=== PATIENT | male | born 1940 | race Caucasian/White ===

== ENCOUNTER → 2021-01-12 08:10 | Outpatient (BNVA) | payer SELFPAY | PROVIDERS: PCP Internal Medicine; Referring Provider Internal Medicine; Visit Provider Internal Medicine Gastroenterology ==

== ENCOUNTER → 2021-05-19 07:18 | Day surgery (SDC) | payer MEDICARE, SELFPAY ==
[2021-02-10 13:41] VITALS: BMI 33.0
[2021-05-17 10:10] VITALS: BMI 33.0
[2021-05-19 07:44] VITALS: BP 145/78; PULSE 83; RESP 18; TEMP 36.7; O2SAT 96
[2021-05-19 07:54] LABS: Glucose, Whole Blood 116 mg/dL (60-115)
--- NOTE | 2021-05-19 07:57 | PC.NURSE ---
Pt arrived to [facility] for colonoscopy and EGD today. Upon arrival pt c/o SOB, Chest pressure and feeling hot . Pt has history of Aflutter on Aspirin 81mg. Pt noted to be afib on l tacker with HR 70-80's. Dr. Delatorre and Dr Ritter notified. Dr Delatorre at bedside speaking to patient. Pt saw cardiology at [facility] recently which recommended Stress test work up. Per Dr. Delatorre patient should have stress test prior to procedure. Pt given decision to go to ER for symptoms but refused at this time. informed to call 911 and go to ER if symptoms persist or become worse. pt verbally acknowledged. Procedure cancelled at this time.
== END ==
PROVIDERS: PCP Internal Medicine; Visit Provider Internal Medicine Gastroenterology
DX: K62.5 Hemorrhage of anus and rectum (principal); K21.9 Gastro-esophageal reflux disease without esophagitis; Z53.29 Procedure and treatment not carried out because of patient's decision for other reasons; E11.9 Type 2 diabetes mellitus without complications; I10 Essential (primary) hypertension
CPT/HCPCS: 82947

== ENCOUNTER → 2021-07-18 13:08 | Outpatient (BNVA) | payer MEDICARE, SELFPAY | PROVIDERS: PCP Internal Medicine; Visit Provider Internal Medicine Gastroenterology | DX: R13.10 Dysphagia, unspecified (principal) | CPT/HCPCS: 99212 ==

== ENCOUNTER 2021-09-07 12:15 | Day surgery (SDC) | payer MEDICARE, OTHER, SELFPAY ==
--- NOTE | 2021-09-06 10:38 | P.CONAN_ITS ---
Documented by User: Yaneth Ace NP 09/06/21 11:49 HPI - Anesthesia Eval Consult details Narrative: 81yo M for Upper Endoscopy and Colonoscopy Previously cx'd DOS d/t SOB, chest pressure. Was scheduled for stress test 05/2021. Anesth recommend f/u with stress testing prior to endos. Cardiac cleared at low to moderate aflutter, no anticoag d/t GIB PMFSH Active Problems Active Problems: All Active Problems (Updated 05/17/21 @ 10:13 by Lolita Reyes RN) Screening for colon cancer (Acute) Tubular adenoma of colon (Acute) GERD with esophagitis (Acute) Rectal bleeding (Acute) Past Medical History Medical History Anemia Asthma COVID-19 vaccine series completed Diabetes Elevated cholesterol GERD with esophagitis History of cardioversion HTN (hypertension) Hx of atrial flutter Low back pain Rectal bleeding Tubular adenoma of colon Family History Family History Mother Heart attack Surgical History Surgical History (Updated 07/18/21 @ 13:26 by MIAKEL Brown) H/O colonoscopy History of esophagogastroduodenoscopy (EGD) Hx of appendectomy Hx of cardiac catheterization Hx of eye surgery Hx of resection of small bowel Social History Social History Household Members: None Patient Tobacco Use Status: Never used Tobacco Second Hand Smoke Exposure: No Use of substances other than those prescribed or required for medical reasons: No Are you DNR?: No Advance Directives: No Advance Directives Information Provided: Yes Advance Directives on File: No Meds Allergies Allergy/AdvReac Type Severity Reaction Status Date / Time No Known Allergies Allergy Verified 07/18/21 13:20 Home Medications Medication Instructions Recorded Confirmed Last Taken Type amlodipine 5 mg tablet 5 mg PO DAILY 01/12/21 02/10/21 05/19/21 History atorvastatin 40 mg tablet 40 mg PO DAILY 01/12/21 02/10/21 Unknown History docusate sodium 100 mg capsule 100 mg PO BID 01/12/21 02/10/21 Unknown History ferrous sulfate 324 mg (65 mg 324 mg PO DAILY 01/12/21 02/10/21 Unknown History iron) tablet,delayed release furosemide 20 mg tablet 20 mg PO DAILY 01/12/21 02/10/21 Unknown History lisinopril 20 mg tablet 20 mg PO BID 01/12/21 02/10/21 Unknown History omeprazole 20 mg capsule,delayed 20 mg PO BID 01/12/21 02/10/21 05/19/21 History release albuterol sulfate 90 mcg/actuation 2 puff INHALATION Q4-6H PRN 05/13/21 05/13/21 Unknown History aerosol inhaler (ProAir HFA) aspirin 81 mg tablet,delayed 81 mg PO DAILY 05/13/21 05/13/21 05/19/21 History release Exam Exam Date and Time: September 06, 2021 1038 Narrative Narrative: ECHO 03/2021 Nml LV size, wall thickness and systolic function LVEF 60-65% Nml regional wall motion Indeterminate LV diastolic function RV not well visualized but probably nml systolic function. PASP could not be obtained LA is normal in size RA is probably normal in size No hemodynamically significant valve disease No change from 08/2020 Pharm Stress 05/2021 Normal Regadenoson stress test with nuclear imaging. No diagnostic EKG changes for ischemia. Baseline EKG: SR with PACs with aberrant conduction; LAD; Inc. RBBB Nuc imaging revealed no areas of ischemia or infarct after attenuation co rrection was applied. Nml LV function and thickening with LVEF of 73% Assessment and Plan Assessment Anesthesia Assessment: Chart Reviewed Documented by User: Pebbles Dumont MD 09/07/21 13:45 [facility] Past Medical History Medical History Anemia Asthma COVID-19 vaccine series completed Diabetes Elevated cholesterol GERD with esophagitis History of cardioversion HTN (hypertension) Hx of atrial flutter Low back pain Rectal bleeding Tubular adenoma of colon Family History Family History Mother Heart attack Family history of problems with anesthesia: No Surgical History Surgical History (Updated 07/18/21 @ 13:26 by MIKAEL Brown) H/O colonoscopy History of esophagogastroduodenoscopy (EGD) Hx of appendectomy Hx of cardiac catheterization Hx of eye surgery Hx of resection of small bowel History of Problems with Anesthesia: No Social History Social History Household Members: None Patient Tobacco Use Status: Never used Tobacco Second Hand Smoke Exposure: No Use of substances other than those prescribed or required for medical reasons: No Are you DNR?: No Advance Directives: No Advance Directives Information Provided: Yes Advance Directives on File: No Meds Allergies Allergy/AdvReac Type Severity Reaction Status Date / Time No Known Allergies Allergy Verified 07/18/21 13:20 Home Medications Medication Instructions Recorded Confirmed Last Taken Type amlodipine 5 mg tablet 5 mg PO DAILY 01/12/21 02/10/21 05/19/21 History atorvastatin 40 mg tablet 40 mg PO DAILY 01/12/21 02/10/21 Unknown History docusate sodium 100 mg capsule 100 mg PO BID 01/12/21 02/10/21 Unknown History ferrous sulfate 324 mg (65 mg 324 mg PO DAILY 01/12/21 02/10/21 Unknown History iron) tablet,delayed release furosemide 20 mg tablet 20 mg PO DAILY 01/12/21 02/10/21 Unknown History lisinopril 20 mg tablet 20 mg PO BID 01/12/21 02/10/21 Unknown History omeprazole 20 mg capsule,delayed 20 mg PO BID 01/12/21 02/10/21 05/19/21 History release albuterol sulfate 90 mcg/actuation 2 puff INHALATION Q4-6H PRN 05/13/21 05/13/21 Unknown History aerosol inhaler (ProAir HFA) aspirin 81 mg tablet,delayed 81 mg PO DAILY 05/13/21 05/13/21 05/19/21 History release Exam Airway Mallampati Class: II TM Dist: >3cm Neck ROM: Full Denture: Upper and Lower Heart: irreg Lungs: cta Assessment and Plan Assessment Anesthesia Assessment: Anesthesia Plan Discussed and Chart Reviewed Final Anesthetic Review Family History of Problems with Anesthesia: No History of Problems with Anesthesia: No NPO: Yes ASA Class: III Final Preanesthetic Review: No Changes in Pt Med Stat, Meds/Allgs Chart Reviewed and Consent Obtained/Reviewed Patient Risk: Intermediate Procedure Risk: Intermediate Anesthetic Plan Anesthetic Plan: MAC: Disposition: Standard PACU
[2021-09-07 13:20] VITALS: BP 125/71; PULSE 79; RESP 18; TEMP 36.7; O2SAT 98; BMI 33.0
--- NOTE | 2021-09-07 13:23 | MHC.SHP ---
Pre-Procedural Eval Section A Date of Service: 09/07/21 Section B Chief Complaint: Rectal Bleeding,Dysphagia Relevant Family History (Specify if Yes): No Relevant Social History: None Present Medications: see Short Stay Collaborative assessment Medical History: Significant History (Anemia Asthma COVID-19 vaccine series completed Diabetes Elevated cholesterol GERD with esophagitis History of cardioversion HTN (hypertension) Hx of atrial flutter Low back pain Rectal bleeding Tubular adenoma of colon) History of Previous Operations: Relevant previous surgery/procedure and date(s) (H/O colonoscopy History of esophagogastroduodenoscopy (EGD) Hx of appendectomy Hx of cardiac catheterization Hx of eye surgery Hx of resection of small bowel) Allergies: Allergies Allergy/AdvReac Type Severity Reaction Status Date / Time No Known Allergies Allergy Verified 07/18/21 13:20 Review of Systems Sugical H&P ROS: Negative: Constitution, Cardiovascular, Respiratory, Neurological, Psychiatric, Hem-Onc, Allergic/Immunologic, Gastrointestinal, Genitourinary, Musculoskeletal, Integumentary, Endocrine and Eyes/Ears/Nose/Throat Exam Surgical H&P Exam: Normal: HEENT, Normal: Heart, Normal: Lungs, Normal: Extremities, Normal: Abdomen, Normal: Skin and Normal: Neurological Plan Diagnosis/Plan: Unchanged I have reviewed the history and physical and performed a pertinent physical examination on my patient. No changes have occurred unless specified.
[2021-09-07] MEDS: Lactated Ringers 1,000 ML 50 ML IVCONT (13:44)
[2021-09-07 13:45] LABS: Glucose, Whole Blood 79 mg/dL (60-115)
--- NOTE | 2021-09-07 14:22 | PM.OP ---
Brief Operative Note Date of Service: 09/07/21 Pre-op diagnosis: anemia, rectal bleeding, dysphagia Post-op diagnosis: same Procedure: see op note Surgeon: Jeffy Ritter MD Anesthesia: MAC Was an Wire Spring Relay Adjuster used for this Procedure?: No Estimated blood loss (mL): 0 Condition: stable Disposition: PACU
--- NOTE | 2021-09-07 14:23 | W.PM.OPN ---
Operative Note Operative Note Date of Service: 09/07/21 Narrative: Operative Information Procedure Description: EGD, Colonoscopy FLEXIBLE TRANSORAL UPPER GASTROINTESTINAL ENDOSCOPY AND COLONOSCOPY PROCEDURE NOTE UPPER ENDOSCOPY Consent: Indications for the procedure and potential complications of bleeding, perforation, reaction to medications and missed diagnosis were discussed with the patient and informed consent was obtained. Instrument: Olympus GIF H 190 J mid size upper endoscope Monitoring: Vital signs and clinical assessment, continuous EKG monitoring, Pulse oximetry, Carbon Dioxide monitoring and blood pressure monitoring were done throughout the procedure. Procedure: The patient was placed in the left lateral decubitis position and pre-procedure medications were administered and a bite block was placed. The endoscope was inserted into the mouth and advanced under direct vision to the third part of duodenum. A careful inspection was made as the upper endoscope was withdrawn including a retroflexed examination of the proximal stomach; Findings and interventions are described below. Findings: Larynx:normal Esophagus: GE junction at 38 cm, diaphragm hiatus at 42 cm, consistent with 4 cm sliding hiatal hernia. 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 bx were taken as well as random esophagus bx. Balloon dilation doen at LES to 20 mm and UES to 19 mm no tears seen. Stomach: Areas of streaky erythematous mucosa in body of stomach and erythematous spots in the fundus. Biopsies were obtained. Grade 2 flap valve on retroflexed examination of the cardia. Duodenum: Normal bulb and descending duodenum, bx taken Intervention: Biopsies as noted above, balloon dilation COLONOSCOPY Instrument: Olympus variable stiffness pediatric scope 190L Colonoscopy Monitoring: Vital signs and clinical assessment, continuous EKG monitoring, Pulse oximetry, Carbon Dioxide monitoring and blood pressure monitoring were done throughout the procedure. Colon withdrawal time was 18 minutes. Procedure: The patient was placed in the left lateral decubitis position and pre-procedure medications were administered. After a digital rectal examination of the ano-rectum, the video colonoscope was inserted into the rectum and advanced through the colon to the cecum/TI. The colonoscope was slowly withdrawn in a retrograde panoramic fashion and the colon mucosa was carefully examined including a retroflexed view of the rectum. Findings and interventions are described below. Procedure Difficulty: easy Findings: scattered diverticulosis in right and left colon Terminal Ileum-normal Cecum: x1 sessile polyp 8 mm removed with cold snare and x2 sessile polyps 6-7 mm removed with forceps. retroflexion on right was normal Ascending Colon: normal Transverse Colon -normal Descending Colon: 7-9 mm sessile polyp removed with forceps Sigmoid Colon: normal Rectum: Retroflexion with moderate sized internal hemorrhoids with red cabrales and mild inflammation, grade II Anorectum - internal hemorrhoids seen at anal verge Colon preparation: [place] Bowel Preparation Scale Right colon; 2 Transverse colon: 2 Left colon; 2 (0 = Unprepared colon segment with mucosa not seen due to solid stool that cannot be cleared. 1 = Portion of mucosa of the colon segment seen, but other areas of the colon segment not well seen due to staining, residual stool and/or opaque liquid. 2 = Minor amount of residual staining, small fragments of stool and/or opaque liquid, but mucosa of colon segment seen well. 3 = Entire mucosa of colon segment seen well with no residual staining, small fragments of stool or opaque liquid) Impression and Post Procedure Diagnosis: Endoscopy Findings: hiatal hernia barretts esophagus gastritis/gastropathy Colonoscopy Findings: polyps internal hemorrhoids diverticular disease bleeding is from internal hemorrhoids Plan: Await Pathology results Repeat Colonoscopy in 3-5 years if health allows or earlier if clinically indicated High fiber diet leaflet avoid straining at stool, epsom salts and sitz bath, anusol supps or cream might investigate for portal htn given findings on EGD, will await bx first Above findings were reviewed with the patient and relevant handouts were provided if indicated.
[2021-09-07 14:58] VITALS: BP 116/57; PULSE 64; RESP 18; TEMP 36.1; O2SAT 98
[2021-09-07 15:13] VITALS: BP 115/54; PULSE 71; RESP 18; TEMP 36.1; O2SAT 99
== END 2021-09-07 16:19 | disposition home or self-care (01) ==
PROVIDERS: PCP Internal Medicine; Visit Provider Internal Medicine Gastroenterology
PROC: (CPT 45385; principal; 2021-09-07 14:50)
DX: K62.5 Hemorrhage of anus and rectum (principal); Z86.010 Personal history of colon polyps; D12.0 Benign neoplasm of cecum; D12.4 Benign neoplasm of descending colon; K57.30 Diverticulosis of large intestine without perforation or abscess without bleeding; K64.1 Second degree hemorrhoids; R13.10 Dysphagia, unspecified; Z85.068 Personal history of other malignant neoplasm of small intestine; Z90.49 Acquired absence of other specified parts of digestive tract; Z92.21 Personal history of antineoplastic chemotherapy; K29.50 Unspecified chronic gastritis without bleeding; K22.70 Barrett's esophagus without dysplasia; K21.00 Gastro-esophageal reflux disease with esophagitis, without bleeding; K44.9 Diaphragmatic hernia without obstruction or gangrene; I10 Essential (primary) hypertension; J45.909 Unspecified asthma, uncomplicated; D64.9 Anemia, unspecified; E11.9 Type 2 diabetes mellitus without complications; Z79.82 Long term (current) use of aspirin; Z79.899 Other long term (current) drug therapy
CPT/HCPCS: 45385; 45380; 43249; 43239; 82947; 88305; 88342; C1726; J2370

== ENCOUNTER → 2021-09-26 14:24 | Outpatient (BNVA) | payer MEDICARE, SELFPAY | PROVIDERS: PCP Internal Medicine; Visit Provider Internal Medicine Gastroenterology | DX: K62.5 Hemorrhage of anus and rectum (principal); K21.00 Gastro-esophageal reflux disease with esophagitis, without bleeding | CPT/HCPCS: 99212 ==

== ENCOUNTER → 2021-10-26 14:18 | Outpatient (BNVA) | payer MEDICARE, SELFPAY | PROVIDERS: PCP Internal Medicine; Referring Provider Internal Medicine Gastroenterology; Visit Provider Surgery | DX: K64.9 Unspecified hemorrhoids (principal) | CPT/HCPCS: 46600; 99202 ==

== ENCOUNTER → 2022-01-23 10:10 | Outpatient (BNVA) | payer MEDICARE, MEDICAID, SELFPAY | PROVIDERS: PCP Internal Medicine; Visit Provider Internal Medicine Gastroenterology | DX: K64.9 Unspecified hemorrhoids (principal); K21.9 Gastro-esophageal reflux disease without esophagitis; R13.10 Dysphagia, unspecified; K44.9 Diaphragmatic hernia without obstruction or gangrene | CPT/HCPCS: 99212 ==

== ENCOUNTER 2022-04-13 11:28 | Outpatient (REF) | payer MEDICARE, MEDICAID, SELFPAY ==
--- NOTE | ~2022-04-13 | XR_ITS ---
EXAMINATION: XR ABDOMEN WITH DECUBITUS VIEWS CLINICAL INDICATION: Diarrhea COMPARISON: None TECHNIQUE: Supine and upright views of the abdomen. FINDINGS: The bowel gas pattern is normal with no evidence of ileus or obstruction. No free intraperitoneal air is seen. Surgical clips present in the right mid abdomen. No unusual soft tissue calcifications are noted. Some sclerotic changes are present in the SI joints. The bones are otherwise unremarkable. XR/XR abdomen w decubitus IMPRESSION: No evidence of bowel obstruction.
[2022-04-13 12:43] LABS: MANUAL DIFF FLAG NO
[2022-04-13 13:21] LABS: Basophils Percent Auto 0.3 % (0-2); Eosinophils Absolute Auto 0.1 X10*3/uL (0.0-0.4); Eosinophils Percent Auto 0.7 % (0-4); Hematocrit 42.6 % (42.0-52.0); Hemoglobin 13.8 g/dl (14.0-18.0); Imm Gran Abs Auto 0.03 X10*3/uL (0.00-0.03); Imm Gran Pct Auto 0.3 % (0.0-0.4); Lymphocytes Percent Auto 11.6 % (20-40); Mean Corpuscular HGB Conc 32.4 g/dl (31.0-36.0); Mean Corpuscular Hemoglobin 29.2 pg (27.0-33.0); Mean Corpuscular Volume 90.1 fL (80.0-98.0); Mean Platelet Volume 11.4 fL (9.4-12.4); Monocytes Absolute Auto 0.7 X10*3/uL (0.1-1.2); Monocytes Percent Auto 7.9 % (2-11); Neutrophils Percent Auto 79.2 % (45-73); Platelet Count 227 X10*3/uL (160-400); Red Blood Count 4.73 X10*6/uL (4.60-5.80); Red Cell Distribution Width 13.1 % (11.0-16.0); White Blood Count 8.9 X10*3/uL (4.8-10.8)
[2022-04-13 13:44] LABS: Alanine Aminotransferase 16 U/L (0-40); Albumin Level 4.1 g/dL (3.5-5.0); Alkaline Phosphatase 69 U/L (39-117); Anion Gap 15 (12-20); Aspartate Amino Transferase 22 U/L (5-37); Bilirubin Total 1.2 mg/dL (0.0-1.0); Blood Urea Nitrogen 9 mg/dL (9-16); C Reactive Protein 0.18 mg/dL (< or = 0.50); Calcium 9.3 mg/dL (8.4-10.2); Carbon Dioxide 30 mmol/L (22-29); Chloride 100 mmol/L (96-108); Estimated Glomerular Filt Rate > 60; Glucose Random 108 mg/dL (60-115); Potassium 3.9 mmol/L (3.3-5.1); Sodium 141 mmol/L (135-145); Total Protein 6.8 g/dL (6.5-8.0)
[2022-04-13 14:05] LABS: TSH reflex Free T4 0.67 uIU/mL (0.32-4.0)
[2022-04-18 14:56] LABS: Transglutaminase Ab IgG <1.0 U/mL; Transglutaminase IgA <1.0 U/mL
== END 2022-04-13 11:29 | disposition home or self-care (01) ==
LOC: HO.XRAY 11:28
PROVIDERS: Visit Provider Nurse Practitioner
DX: R19.7 Diarrhea, unspecified (principal)
CPT/HCPCS: 36415; 74021; 80053; 84443; 85025; 86140; 86364; 99212

== ENCOUNTER 2022-04-14 15:31 | Emergency (ER) | payer MEDICARE, MEDICAID, SELFPAY ==
--- NOTE | ~2022-04-14 | CT_ITS ---
EXAMINATION: CT ABDOMEN AND PELVIS WITH CONTRAST CLINICAL INFORMATION: Abdominal pain and diarrhea COMPARISON: None TECHNIQUE: Multidetector volumetric images were obtained from the superior aspect of the liver through the pubic symphysis following administration 85 mL of Omnipaque 350 intravenous contrast. Sagittal and coronal reformatted images were obtained on the technologist's workstation. Oral contrast: No This CT examination was performed using dose optimization techniques as appropriate, variously including the following: *Automated exposure control *Adjustment of mA and/or kV according to patient size (this includes techniques or standardized protocols for targeted exams where dose is matched to indication/reason for exam; i.e. extremities or head) *Use of iterative reconstruction technique DLP: 549 mGy-cm FINDINGS: LUNG BASES: Multiple scattered pulmonary nodules and evidence of an underlying lung disease, possibly emphysema or an interstitial lung disease with areas of cystic change predominantly involving the anterior basilar segment of the right lower lobe. The largest pulmonary nodule measures 0.7 cm. Extensive coronary artery atherosclerotic disease. Right hemidiaphragm elevation. LIVER, GALLBLADDER, AND BILIARY TREE: There is a 2.3 x 2.2 cm hypodense lesion within the liver hepatic segment 4A measuring internal attenuation of 43 Hounsfield units. No other focal liver lesions are identified. No significant intrahepatic biliary dilatation. The liver is normal in size. The gallbladder is unremarkable with no evidence of radiopaque gallstones, gallbladder wall thickening, or obvious pericholecystic inflammatory changes. PANCREAS: Unremarkable. SPLEEN: Unremarkable. ADRENAL GLANDS: Unremarkable. KIDNEYS AND URETERS: The kidneys are normal in size, shape, and attenuation. No hydronephrosis, hydroureter, or calculi seen. No perinephric stranding. Left renal cyst measures 6.3 cm in maximal dimension with a thin peripheral rim calcification. Few scattered tiny well-defined renal cortical hypodensities, a nonspecific finding but statistically most likely representing renal cysts. BLADDER: Broad bladder wall thickening predominantly along the anterior and left lateral aspect without focal lesion. GASTROINTESTINAL TRACT: There is loss of haustrations involving the rectosigmoid colon. There is a somewhat focal area of wall thickening involving the sigmoid colon measuring 1 cm (series 3 image 44). The remainder of the colon is unremarkable. The appendix is not seen, however there are no inflammatory changes in the right lower quadrant to suggest acute appendicitis. No evidence of bowel structure. Prior small bowel resection right lower quadrant. ABDOMINAL WALL: No significant hernia is appreciated. LYMPH NODES: No lymphadenopathy within the abdomen or pelvis by CT criteria. VASCULAR: Atherosclerosis abdominal aorta without evidence of aneurysm. The IVC is singular and right-sided. PELVIC VISCERA: Unremarkable. OSSEOUS STRUCTURES: No acute or suspicious osseous abnormality. CT/CT abdomen pelvis w con IMPRESSION: 1. Loss of haustrations involving the rectosigmoid colon suggestive of an underlying inflammatory bowel disease such as ulcerative colitis. There is a focal area of wall thickening involving the proximal sigmoid colon which could represent malignancy. Correlation with the patient's history and consideration for colonoscopy is recommended with consultative surfaces of gastroenterology. 2. Indeterminate hypodense lesion within the liver. I have no prior studies available for comparison to comment upon whether this is a new or old finding. Consider initial follow-up with ultrasound if the clinical history is unrevealing. 3. Multiple scattered pulmonary nodules of the partially imaged lung bases. It cannot be determined based on this singular scan alone whether these represent metastatic lesions, however this is considered a possibility and clinical correlation along with acquisition of prior studies if available is recommended. If none available, dedicated chest CT imaging on an nonemergent basis is recommended if the patient's clinical history warrants. Fleischner guidelines were followed.
[2022-04-14 15:34] VITALS: BP 109/53; PULSE 73; RESP 19; TEMP 36.6; O2SAT 98; BMI 28.7
--- NOTE | 2022-04-14 15:37 | ECG_ITS ---
Test Reason : BLEED Blood Pressure : / mmHG Vent. Rate : 073 BPM Atrial Rate : 073 BPM P-R Int : 166 ms QRS Dur : 102 ms QT Int : 400 ms P-R-T Axes : 058 -47 039 degrees QTc Int : 440 ms Normal sinus rhythm Left axis deviation Abnormal ECG No previous ECGs available Referred By: Generic ED Physician Electronically Signed By:DARON FERNANDEZ MD
[2022-04-14 16:09] LABS: MANUAL DIFF FLAG NO
[2022-04-14 16:11] LABS: Basophils Percent Auto 0.1 % (0-2); Eosinophils Absolute Auto 0.2 X10*3/uL (0.0-0.4); Eosinophils Percent Auto 1.6 % (0-4); Hematocrit 39.7 % (42.0-52.0); Hemoglobin 12.5 g/dl (14.0-18.0); Imm Gran Abs Auto 0.04 X10*3/uL (0.00-0.03); Imm Gran Pct Auto 0.4 % (0.0-0.4); Lymphocytes Absolute Auto 0.9 X10*3/uL (1.2-4.9); Lymphocytes Percent Auto 9.1 % (20-40); Mean Corpuscular HGB Conc 31.5 g/dl (31.0-36.0); Mean Corpuscular Hemoglobin 28.3 pg (27.0-33.0); Mean Platelet Volume 11.1 fL (9.4-12.4); Monocytes Absolute Auto 0.9 X10*3/uL (0.1-1.2); Monocytes Percent Auto 9.3 % (2-11); Neutrophils Absolute Auto 7.5 x10*3/uL (2.0-8.3); Neutrophils Percent Auto 79.5 % (45-73); Platelet Count 200 X10*3/uL (160-400); Red Blood Count 4.41 X10*6/uL (4.60-5.80); Red Cell Distribution Width 13.2 % (11.0-16.0); White Blood Count 9.4 X10*3/uL (4.8-10.8)
[2022-04-14 16:21] LABS: INTERNATIONAL NORM RATIO 1.2 (0.9-1.1); Prothrombin Time 13.1 SEC (9.9-13.0)
[2022-04-14 16:29] LABS: COVID-19 Test Negative (Negative)
[2022-04-14 16:34] LABS: Anion Gap 11 (12-20); Blood Urea Nitrogen 15 mg/dL (9-16); Calcium 8.8 mg/dL (8.4-10.2); Carbon Dioxide 30 mmol/L (22-29); Chloride 102 mmol/L (96-108); Creatinine Clr Calc Pharmacy 58.4; Estimated Glomerular Filt Rate > 60; Glucose Random 178 mg/dL (60-115); Potassium 3.3 mmol/L (3.3-5.1); Sodium 140 mmol/L (135-145)
[2022-04-14 16:39] LABS: Troponin-I High Sensitivity 9.1 ng/L (<3.5-35.0)
--- NOTE | 2022-04-14 17:17 | ED.GIBLEED ---
HPI - GI Bleed General Chief complaint: GI Bleed Stated complaint: weakness, blood in stool Time Seen by Provider: 04/14/22 17:05 Source: patient and old records reviewed Mode of arrival: ambulatory Limitations: no limitations History of Present Illness HPI Narrative: 81 yo male with hx of asthma, HTN, aflutter, HLD, DM, bowel resection, GERD/esophagitis, internal hemorrhoids, last colonscopy Aug 2021 showing diverticulosis of R/L colon, internal hemorrhoids with mild inflammation - noted c/o bleeding at the time of colonoscopy was from hemorrhoids also had EGD - barretts esophagitis and gastritis was seen in GI clinic yesterday for diarrhea - labs wnl for CBC, comprehensive. He was seen at [facility] ED about 7 days ago with same complaint sent home with bland diet. Comes today with c/o of loose stools upwards of 3+ a day the most he has had in a day sounds like 10+ since 04/07. They are now black in nature. He denies travel, sick contact, antibiotic use. He notes this has not happened to him in the past. MD complaint: melena Onset (ago): week(s) (2) Pain Consistency: intermittent Severity: mild Relieving factors: none Exacerbating factors: eating Context: hemorrhoids Associated symptoms: loss of appetite, malaise and weakness Treatments Prior to Arrival: none Related Data Home Medications Medication Instructions Recorded Confirmed amlodipine 5 mg tablet 5 mg PO DAILY 01/12/21 02/10/21 atorvastatin 40 mg tablet 40 mg PO DAILY 01/12/21 02/10/21 docusate sodium 100 mg capsule 100 mg PO BID 01/12/21 02/10/21 ferrous sulfate 324 mg (65 mg 324 mg PO DAILY 01/12/21 02/10/21 iron) tablet,delayed release furosemide 20 mg tablet 20 mg PO DAILY 01/12/21 02/10/21 lisinopril 20 mg tablet 20 mg PO BID 01/12/21 02/10/21 albuterol sulfate 90 mcg/actuation 2 puff inhalation Q4-6H PRN 05/13/21 05/13/21 aerosol inhaler (ProAir HFA) Shortness Of Breath Or Wheezing aspirin 81 mg tablet,delayed 81 mg PO DAILY 05/13/21 05/13/21 release Previous Rx's Medication Instructions Recorded bisacodyl 5 mg tablet,delayed 10 mg PO ONCE Bowel Preparation 1 02/15/21 release (Dulcolax (bisacodyl)) day #2 tabs polyethylene glycol 3350 17 238 g PO DAILY colo prep 1 day 02/15/21 gram/dose oral powder (Miralax) #238 grams bisacodyl 5 mg tablet,delayed 20 mg PO ONCE 1 day #4 tabs 07/18/21 release (Dulcolax (bisacodyl)) hydrocortisone 2.5 % topical cream 1 appl WV BID-QID PRN hemorrhoids 09/14/21 with perineal applicator #30 grams (Procto-Med HC) psyllium husk 3.4 gram/5.4 gram 1 tbsp PO BID #660 grams 09/14/21 oral powder (Metamucil) pantoprazole 40 mg tablet,delayed 40 mg PO BID #60 tabs 01/23/22 release levofloxacin 500 mg tablet 500 mg PO DAILY #6 tabs 04/14/22 metronidazole 500 mg tablet 500 mg PO BID 7 days #14 tabs 04/14/22 Allergies Allergy/AdvReac Type Severity Reaction Status Date / Time No Known Allergies Allergy Verified 04/13/22 10:20 Review of Systems Review of Systems: Constitutional : No Weight loss, No Fever, No Chills ENT/Mouth : No sore throat, No Rhinorrhea Eyes: No Swelling, No Redness Cardiovascular : No Chest Pain, No SOB, NoEdema Respiratory : No Cough, No Sputum, No Wheezing Gastrointestinal : no Nausea, no Vomiting, positive Diarrhea, no abdominal Pain, No Hematochezia, pos Melena Genitourinary : No Dysuria, No Urinary Frequency, No Hematuria, No Urgency Musculoskeletal : No joint pain, No Myalgias, No Joint Swelling Skin : No Skin Lesions, No rash Neuro : pos Weakness, No Numbness, pos Dizziness, No Headache Psych : No Anxiety/Panic, No Depression Heme/Lymph: No Bruising, No Lymphadenopathy Endocrine : No Polyuria, No Polydipsia All other systems reviewed and are negative. [facility] Past Medical History Attestation statement: The following information was validated with the patient. Source: old records reviewed Medical History Anemia Asthma COVID-19 vaccine series completed Diabetes Elevated cholesterol History of cardioversion HTN (hypertension) Hx of atrial flutter Low back pain Surgical History H/O colonoscopy History of esophagogastroduodenoscopy (EGD) Hx of appendectomy Hx of cardiac catheterization Hx of eye surgery Hx of resection of small bowel Family History Family History Mother Heart attack Social History Social History Household Members: None Patient Tobacco Use Status: Never used Tobacco Second Hand Smoke Exposure: No Advance Directives: No Advance Directives Information Provided: No Physical Exam Vital Signs: Vital Signs: Last Vital Signs Temp 98.4 F 04/14/22 18:42 Pulse 74 04/14/22 18:42 Resp 16 04/14/22 18:42 BP 142/66 H 04/14/22 18:42 Pulse Ox 98 04/14/22 18:42 O2 Del Method 04/14/22 18:42 BMI result Body Mass Index 28.7 Appearance: Alert. Oriented X3. No acute distress. Eyes: Pupils equal, round and reactive to light. ENT: Pharynx normal. Neck: Normal inspection. Neck supple. CVS: Normal heart rate and rhythm. Pulses normal. Respiratory: No respiratory distress. Breath sounds normal. Abdomen: Soft and nontender. Rectal: black stool on fingertips Skin: Skin warm and dry. Normal skin color. Normal skin turgor. Extremities: No lower extremity edema. No calf ttp Neuro: Oriented X 3. No motor deficit. No sensory deficit. Course Course Course Narrative: H/H stable no drop, guiac neg guiac negative able to give GI panel lab given CT scan will place on antibiotics, just had colonoscopy but will defer to GI on Sunday will need CT scan with PCP on Sunday - VS are stable, H/H stable with 2 weeks of symptoms, guiac negative has appointment with GI on Sunday aware he has to have CT scan on chest. patient states he feels well enough to go home MDM - GI Bleed MDM Narrative Medical decision making narrative: 81 yo male with hx of asthma, HTN, aflutter, HLD, DM, bowel resection, GERD/esophagitis, internal hemorrhoids, not on DOAC here with c/o dizziness/weakness and melena now for 2 weeks no precipitating events seems that the stool has no changed to melena. At this time labs, guiac study, CT scan for mass given history, IVF, stool studies ordered. Dispo per results and findings. Lab Data Result diagrams: 04/14/22 17:40 04/14/22 15:56 Labs: Lab Results 04/14/22 04/14/22 04/14/22 Range/Units 15:56 15:56 15:56 WBC 9.4 (4.8-10.8) X10*3/uL RBC 4.41 L (4.60-5.80) X10*6/uL Hgb 12.5 L (14.0-18.0) g/dl Hct 39.7 L (42.0-52.0) % MCV 90.0 (80.0-98.0) fL MCH 28.3 (27.0-33.0) pg MCHC 31.5 (31.0-36.0) g/dl RDW 13.2 (11.0-16.0) % Plt Count 200 (160-400) X10*3/uL MPV 11.1 (9.4-12.4) fL Immature Gran % (Auto) 0.4 (0.0-0.4) % Neut % (Auto) 79.5 H (45-73) % Lymph % (Auto) 9.1 L (20-40) % [place] % (Auto) 9.3 (2-11) % Eos % (Auto) 1.6 (0-4) % Baso % (Auto) 0.1 (0-2) % Lymph # (Auto) 0.9 L (1.2-4.9) X10*3/uL [place]verse # (Auto) 0.9 (0.1-1.2) X10*3/uL Eos # (Auto) 0.2 (0.0-0.4) X10*3/uL Baso # (Auto) 0.0 (0.0-0.2) X10*3/uL Abs Immat Gran (auto) 0.04 H (0.00-0.03) X10*3/uL Absolute Neuts (auto) 7.5 (2.0-8.3) x10*3/uL Absolute Nucleated RBC 0.000 (0.0-0.012) X10*3/uL Nucleated RBC % (auto) 0.0 (0.0-0.2) /100WBC PT (9.9-13.0) SEC INR (0.9-1.1) Sodium 140 (135-145) mmol/L Potassium 3.3 (3.3-5.1) mmol/L Chloride 102 (96-108) mmol/L Carbon Dioxide 30 H (22-29) mmol/L Anion Gap 11 L (12-20) BUN 15 D (9-16) mg/dL Creatinine 0.84 (0.5-1.4) mg/dL Estim Creat Clear Calc 58.4 Estimated GFR > 60 Random Glucose 178 H D (60-115) mg/dL Calcium 8.8 (8.4-10.2) mg/dL Magnesium 1.8 (1.6-2.6) mg/dL Total Bilirubin 1.0 (0.0-1.0) mg/dL Direct Bilirubin 0.5 (0.0-0.5) mg/dL AST 22 (5-37) U/L ALT 16 (0-40) U/L Alkaline Phosphatase 60 (39-117) U/L Troponin I High Sens (<3.5-35.0) ng/L Total Protein 6.0 L (6.5-8.0) g/dL Albumin 3.7 (3.5-5.0) g/dL Lipase 53 (8-78) U/L Stool Occult Blood (NEGATIVE) COVID-19 (AUREA) Negative (Negative) COVID-19 Clin Com See Note Blood Type Antibody Screen 04/14/22 04/14/22 04/14/22 Range/Units 15:56 15:56 15:56 WBC (4.8-10.8) X10*3/uL RBC (4.60-5.80) X10*6/uL Hgb (14.0-18.0) g/dl Hct (42.0-52.0) % MCV (80.0-98.0) fL MCH (27.0-33.0) pg MCHC (31.0-36.0) g/dl RDW (11.0-16.0) % Plt Count (160-400) X10*3/uL MPV (9.4-12.4) fL Immature Gran % (Auto) (0.0-0.4) % Neut % (Auto) (45-73) % Lymph % (Auto) (20-40) % [place]verse % (Auto) (2-11) % Eos % (Auto) (0-4) % Baso % (Auto) (0-2) % Lymph # (Auto) (1.2-4.9) X10*3/uL [place] # (Auto) (0.1-1.2) X10*3/uL Eos # (Auto) (0.0-0.4) X10*3/uL Baso # (Auto) (0.0-0.2) X10*3/uL Abs Immat Gran (auto) (0.00-0.03) X10*3/uL Absolute Neuts (auto) (2.0-8.3) x10*3/uL Absolute Nucleated RBC (0.0-0.012) X10*3/uL Nucleated RBC % (auto) (0.0-0.2) /100WBC PT 13.1 H (9.9-13.0) SEC INR 1.2 H (0.9-1.1) Sodium (135-145) mmol/L Potassium (3.3-5.1) mmol/L Chloride (96-108) mmol/L Carbon Dioxide (22-29) mmol/L Anion Gap (12-20) BUN (9-16) mg/dL Creatinine (0.5-1.4) mg/dL Estim Creat Clear Calc Estimated GFR Random Glucose (60-115) mg/dL Calcium (8.4-10.2) mg/dL Magnesium (1.6-2.6) mg/dL Total Bilirubin (0.0-1.0) mg/dL Direct Bilirubin (0.0-0.5) mg/dL AST (5-37) U/L ALT (0-40) U/L Alkaline Phosphatase (39-117) U/L Troponin I High Sens 9.1 (<3.5-35.0) ng/L Total Protein (6.5-8.0) g/dL Albumin (3.5-5.0) g/dL Lipase (8-78) U/L Stool Occult Blood (NEGATIVE) COVID-19 (AUREA) (Negative) COVID-19 Clin Com Blood Type O Positive Antibody Screen NEGATIVE 04/14/22 04/14/22 Range/Units 17:40 17:40 WBC 13.2 H (4.8-10.8) X10*3/uL RBC 4.40 L (4.60-5.80) X10*6/uL Hgb 12.7 L (14.0-18.0) g/dl Hct 39.5 L (42.0-52.0) % MCV 89.8 (80.0-98.0) fL MCH 28.9 (27.0-33.0) pg MCHC 32.2 (31.0-36.0) g/dl RDW 13.2 (11.0-16.0) % Plt Count 196 (160-400) X10*3/uL MPV 11.3 (9.4-12.4) fL Immature Gran % (Auto) (0.0-0.4) % Neut % (Auto) (45-73) % Lymph % (Auto) (20-40) % [place]verse % (Auto) (2-11) % Eos % (Auto) (0-4) % Baso % (Auto) (0-2) % Lymph # (Auto) (1.2-4.9) X10*3/uL [place] # (Auto) (0.1-1.2) X10*3/uL Eos # (Auto) (0.0-0.4) X10*3/uL Baso # (Auto) (0.0-0.2) X10*3/uL Abs Immat Gran (auto) (0.00-0.03) X10*3/uL Absolute Neuts (auto) (2.0-8.3) x10*3/uL Absolute Nucleated RBC 0.000 (0.0-0.012) X10*3/uL Nucleated RBC % (auto) 0.0 (0.0-0.2) /100WBC PT (9.9-13.0) SEC INR (0.9-1.1) Sodium (135-145) mmol/L Potassium (3.3-5.1) mmol/L Chloride (96-108) mmol/L Carbon Dioxide (22-29) mmol/L Anion Gap (12-20) BUN (9-16) mg/dL Creatinine (0.5-1.4) mg/dL Estim Creat Clear Calc Estimated GFR Random Glucose (60-115) mg/dL Calcium (8.4-10.2) mg/dL Magnesium (1.6-2.6) mg/dL Total Bilirubin (0.0-1.0) mg/dL Direct Bilirubin (0.0-0.5) mg/dL AST (5-37) U/L ALT (0-40) U/L Alkaline Phosphatase (39-117) U/L Troponin I High Sens (<3.5-35.0) ng/L Total Protein (6.5-8.0) g/dL Albumin (3.5-5.0) g/dL Lipase (8-78) U/L Stool Occult Blood NEGATIVE (NEGATIVE) COVID-19 (AUREA) (Negative) COVID-19 Clin Com Blood Type Antibody Screen ECG Data Attestation: I personally reviewed and interpreted this ECG as follows: ECG interpretation date: 04/14/22 ECG interpretation time: 17:31 Interpretation: Rate: 73 Rhythm: NSR [place]: left Normal P waves. Normal JANINA. Normal QRS complex. ST T wave : normal no AYESHA qTC: normal prior studies: no acute ischemia The study has been interpreted contemporaneously by me. . Discharge Plan Discharge Clinical Impression: Colitis Patient Disposition: Home, Self-Care Instructions: Colitis (ED) Additional Instructions: return to ED for any worsening symptoms or concerns you need to get a CT scan of your chest, follow up with GI these findings are worrisome CT/CT abdomen pelvis w con IMPRESSION: ? 1. Loss of haustrations involving the rectosigmoid colon suggestive of an underlying inflammatory bowel disease such as ulcerative colitis. There is a focal area of wall thickening involving the proximal sigmoid colon which could represent malignancy. Correlation with the patient's history and consideration for colonoscopy is recommended with consultative surfaces of gastroenterology. 2. Indeterminate hypodense lesion within the liver. I have no prior studies available for comparison to comment upon whether this is a new or old finding. Consider initial follow-up with ultrasound if the clinical history is unrevealing. 3. Multiple scattered pulmonary nodules of the partially imaged lung bases. It cannot be determined based on this singular scan alone whether these represent metastatic lesions, however this is considered a possibility and clinical correlation along with acquisition of prior studies if available is recommended. If none available, dedicated chest CT imaging on an nonemergent basis is recommended if the patient's clinical history warrants. Prescriptions: New metronidazole 500 mg tablet 500 mg PO BID 7 Days Qty: 14 0RF levofloxacin 500 mg tablet 500 mg PO DAILY Qty: 6 0RF No Action polyethylene glycol 3350 [Miralax] 17 gram/dose powder 238 g PO DAILY 1 Days Qty: 238 0RF bisacodyl [Dulcolax (bisacodyl)] 5 mg tablet,delayed release (DR/EC) 10 mg PO ONCE 1 Days Qty: 2 0RF Rx Instructions: Take 2 tablets at 12:00pm the day before your procedure, bowel prep Metamucil 3.4 gram/5.4 gram powder 1 tbsp PO BID Qty: 660 2RF Rx Instructions: mix into at least 8 oz of water or juice before administering hydrocortisone [Procto-Med HC] 2.5 % cream with perineal applicator 1 appl WV BID-QID PRN (Reason: hemorrhoids) Qty: 30 0RF aspirin [Aspir-81] 81 mg Tablet,Delayed Release (Dr/Ec) 81 mg PO DAILY albuterol sulfate [ProAir HFA] 90 mcg/actuation Hfa Aerosol Inhaler 2 puff INHALATION Q4-6H PRN (Reason: Shortness Of Breath Or Wheezing) amlodipine 5 mg tablet 5 mg PO DAILY ferrous sulfate 324 mg (65 mg iron) tablet,delayed release (DR/EC) 324 mg PO DAILY lisinopril 20 mg tablet 20 mg PO BID furosemide 20 mg tablet 20 mg PO DAILY atorvastatin 40 mg tablet 40 mg PO DAILY docusate sodium 100 mg capsule 100 mg PO BID bisacodyl [Dulcolax (bisacodyl)] 5 mg tablet,delayed release (DR/EC) 20 mg PO ONCE 1 Days Qty: 4 0RF Rx Instructions: take at 6 pm day before colonoscopy pantoprazole 40 mg tablet,delayed release (DR/EC) 40 mg PO BID Qty: 60 2RF Referrals: Melissa Agustin ANP-C [Nurse Practitioner] - 04/18/22 Geneva Patel MD [Physician] - 1 week
[2022-04-14 17:46] LABS: Hematocrit 39.5 % (42.0-52.0); Hemoglobin 12.7 g/dl (14.0-18.0); Mean Corpuscular HGB Conc 32.2 g/dl (31.0-36.0); Mean Corpuscular Hemoglobin 28.9 pg (27.0-33.0); Mean Corpuscular Volume 89.8 fL (80.0-98.0); Mean Platelet Volume 11.3 fL (9.4-12.4); Platelet Count 196 X10*3/uL (160-400); Red Cell Distribution Width 13.2 % (11.0-16.0); White Blood Count 13.2 X10*3/uL (4.8-10.8)
[2022-04-14 17:56] LABS: OBS Int Ctl Valid YES; OBS1 NEGATIVE (NEGATIVE)
[2022-04-14] MEDS: iohexoL 350 MG/ML 100 ML INFUS..BTL IV (17:56)
[2022-04-14 18:03] LABS: Alanine Aminotransferase 16 U/L (0-40); Albumin Level 3.7 g/dL (3.5-5.0); Alkaline Phosphatase 60 U/L (39-117); Aspartate Amino Transferase 22 U/L (5-37); Bilirubin Direct 0.5 mg/dL (0.0-0.5); Lipase 53 U/L (8-78); Magnesium 1.8 mg/dL (1.6-2.6)
[2022-04-14] MEDS: Lactated Ringers 1,000 ML 999 ML IV (18:06)
[2022-04-14 18:42] VITALS: BP 142/66; PULSE 74; RESP 16; TEMP 36.9; O2SAT 98
[2022-04-14] MEDS: levoFLOXacin 500 MG TABLET PO (19:58)
[2022-04-14] MEDS: metroNIDAZOLE 500 MG TABLET PO (19:58)
[2022-04-14 20:00] VITALS: BP 134/70; PULSE 72; RESP 16; TEMP 37.2; O2SAT 98
[2022-04-15 09:26] LABS: Campylobacter Not Detected (Not Detect.); E. coli EAEC Not Detected (Not Detect.); E. coli EPEC Not Detected (Not Detect.); E. coli ETEC Not Detected (Not Detect.); E. coli STEC Not Detected (Not Detect.); Plesiomonas shigelloides Not Detected (Not Detect.); Salmonella Not Detected (Not Detect.); Vibrio Not Detected (Not Detect.); Vibrio Cholerae Not Detected (Not Detect.); Yersinia enterocolitica Not Detected (Not Detect.)
[2022-04-15 09:27] LABS: Adenovirus F 40/41 Not Detected (Not Detect.); Astrovirus Not Detected (Not Detect.); Cryptosporidium Not Detected (Not Detect.); Cyclospora cayetanensis Not Detected (Not Detect.); Entamoeba histolytica Not Detected (Not Detect.); Giardia lamblia Not Detected (Not Detect.); Norovirus GI/GII Not Detected (Not Detect.); Rotavirus A Not Detected (Not Detect.); Sapovirus Not Detected (Not Detect.); Shigella sp./EIEC Not Detected (Not Detect.)
== END 2022-04-14 20:13 | disposition home or self-care (01) ==
PROVIDERS: Emergency Provider Emergency Medicine
DX: K52.9 Noninfective gastroenteritis and colitis, unspecified (principal); K92.1 Melena; I10 Essential (primary) hypertension; R10.2 Pelvic and perineal pain; Z20.822 Contact with and (suspected) exposure to COVID-19; Z79.899 Other long term (current) drug therapy
CPT/HCPCS: 36415; 74177; 80048; 80076; 82272; 83690; 83735; 84484; 85025; 85027; 85610; 86850; 86900; 86901; 87507; 87635; 93005; 96360; 99283; 99284; Q9967

== ENCOUNTER 2022-04-14 15:49 | Outpatient (REF) | payer MEDICARE, MEDICAID, SELFPAY ==
[2022-04-15 04:39] LABS: CDiff Gene PCR NEGATIVE (Negative)
== END 2022-04-14 15:50 | disposition home or self-care (01) ==
LOC: HO.LNP 15:49
PROVIDERS: Visit Provider Nurse Practitioner
DX: R19.7 Diarrhea, unspecified (principal)
CPT/HCPCS: 87493

== ENCOUNTER → 2022-04-18 15:44 | Outpatient (BNVA) | payer MEDICARE, MEDICAID, SELFPAY | PROVIDERS: Visit Provider Nurse Practitioner | DX: R19.7 Diarrhea, unspecified (principal) | CPT/HCPCS: 99212 ==

== ENCOUNTER → 2022-05-12 12:22 | Outpatient (BNVA) | payer MEDICARE, MEDICAID, SELFPAY | PROVIDERS: Visit Provider Internal Medicine Gastroenterology | DX: K92.1 Melena (principal); R19.8 Other specified symptoms and signs involving the digestive system and abdomen; K76.9 Liver disease, unspecified | CPT/HCPCS: 99212 ==

== ENCOUNTER 2022-05-16 15:19 | Outpatient (REF) | payer MEDICARE, OTHER, SELFPAY ==
--- NOTE | ~2022-05-16 | CT_ITS ---
EXAMINATION: CT CHEST WITH CONTRAST CLINICAL INFORMATION: Lung nodules. History of small bowel cancer. COMPARISON: Abdominal CT from 04/14/2022. TECHNIQUE: Multidetector volumetric CT imaging of the chest was obtained after the administration of 65 mL of Omnipaque 350 intravenous contrast without immediate adverse reactions. Axial MIP volume rendering provided. Sagittal and coronal reformatted images were obtained. This CT examination was performed using dose optimization techniques as appropriate, variously including the following: *Automated exposure control *Adjustment of mA and/or kV according to patient size (this includes techniques or standardized protocols for targeted exams where dose is matched to indication/reason for exam; i.e. 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 LUNGS: The central airways are patent. Mosaic attenuation of the lungs. There are multiple nodules seen throughout the lung parenchyma. This corresponds to the appearance on previous abdominal CT. For instance there is a left lower lobe 0.6 cm nodule on series 7 image 140 which is unchanged. There is a right middle lobe 0.8 cm nodule on image 102. Left upper lobe 0.5 cm nodule on image 48. Multiple additional nodules are present throughout the lungs. No dense consolidation. No pneumothorax. MEDIASTINUM: Normal heart size. Dense coronary artery calcifications. No pericardial effusion. No mediastinal lymphadenopathy. PLEURA: There is no pleural effusion. No pleural mass or thickening. AXILLA: No lymphadenopathy. UPPER ABDOMEN: Hypoattenuating area at the periphery of the liver is unchanged. Normal adrenal glands. OSSEOUS STRUCTURES: Mild degenerative changes throughout the spine. No acute or suspicious osseous abnormality. CT/CT chest w con IMPRESSION: Numerous nodules are seen throughout both lungs. Although nonspecific, the appearance is concerning for metastatic disease in this clinical setting. There is no significant change in the visualized lower lung nodules when compared to the recent prior abdominal CT. Fleischner guidelines were followed.
[2022-05-16] MEDS: iohexoL 350 MG/ML 100 ML INFUS..BTL IV (15:53)
== END 2022-05-16 15:20 | disposition home or self-care (01) ==
LOC: HO.CT 15:19
PROVIDERS: Visit Provider Internal Medicine
DX: R91.8 Other nonspecific abnormal finding of lung field (principal)
CPT/HCPCS: 71260; Q9967

== ENCOUNTER 2022-05-18 07:27 | Day surgery (SDC) | payer MEDICARE, MEDICAID, SELFPAY ==
[2022-05-18 07:54] VITALS: BMI 30.2
[2022-05-18 07:57] VITALS: BP 142/68; PULSE 76; RESP 18; TEMP 36.9; O2SAT 98
[2022-05-18] MEDS: Lactated Ringers 1,000 ML 50 ML IVCONT (08:00)
[2022-05-18 08:02] LABS: Glucose, Whole Blood 81 mg/dL (60-115)
--- NOTE | 2022-05-18 08:05 | HO.ANESPROP2 ---
HPI - Anesthesia Eval Consult details Narrative: 82 M for sigmoidoscopy [facility] Active Problems Active Problems: All Active Problems (Updated 05/03/22 @ 15:28 by Geneva Patel MD) Lung nodule, multiple (Acute) Diarrhea (Acute) Bleeding hemorrhoids (Acute) Screening for colon cancer (Acute) Tubular adenoma of colon (Acute) GERD with esophagitis (Acute) Rectal bleeding (Acute) Past Medical History Medical History Anemia Asthma Bleeding hemorrhoids COVID-19 vaccine series completed Diabetes Elevated cholesterol GERD with esophagitis History of cardioversion HTN (hypertension) Hx of atrial flutter Low back pain Rectal bleeding Tubular adenoma of colon Family History Family History Mother Heart attack Cancer Family history of problems with anesthesia: No Surgical History Surgical History H/O colonoscopy History of esophagogastroduodenoscopy (EGD) Hx of appendectomy Hx of cardiac catheterization Hx of eye surgery Hx of resection of small bowel History of Problems with Anesthesia: No Social History Social History Household Members: None Housing: Apartment Are you a primary insurance healthcare consultant to a significant other at home: No Do you presently have visiting nurse or other home services: No Patient Tobacco Use Status: Never used Tobacco Second Hand Smoke Exposure: No service: No Current occupational status: retired Meds Allergies Allergy/AdvReac Type Severity Reaction Status Date / Time No Known Allergies Allergy Verified 05/12/22 12:24 Active Medications: Current Medications Lactated Ringer's (Lr) 1,000 mls @ 50 mls/hr IVCONT .Q20H ARNULFO Last Admin: 05/18/22 08:00 Dose: 50 mls/hr Home Medications Medication Instructions Recorded Confirmed Last Taken Type amlodipine 5 mg tablet 5 mg PO DAILY 01/12/21 05/03/22 09/07/21 History atorvastatin 40 mg tablet 40 mg PO DAILY 01/12/21 05/03/22 Unknown History docusate sodium 100 mg capsule 100 mg PO BID 01/12/21 05/03/22 Unknown History ferrous sulfate 324 mg (65 mg 324 mg PO DAILY 01/12/21 05/03/22 05/17/22 History iron) tablet,delayed release furosemide 20 mg tablet 20 mg PO DAILY 01/12/21 05/03/22 Unknown History lisinopril 20 mg tablet 20 mg PO BID 01/12/21 05/03/22 Unknown History albuterol sulfate 90 mcg/actuation 2 puff inhalation Q4-6H PRN 05/13/21 05/03/22 Unknown History aerosol inhaler (ProAir HFA) Shortness Of Breath Or Wheezing aspirin 81 mg tablet,delayed 81 mg PO DAILY 05/13/21 05/03/22 09/06/21 History release ketoconazole 2 % shampoo 1 appl topical DAILY 04/18/22 05/03/22 Unknown History metoprolol succinate 25 mg 1 tab PO DAILY 05/03/22 05/03/22 Unknown History tablet,extended release 24 hr Exam Exam Date and Time: May 18, 2022 08 Height,Weight and Vital Signs: Height 5 ft 1 in Weight 72.575 kg Last Vital Signs Temp 98.4 F 05/18/22 07:57 Pulse 76 05/18/22 07:57 Resp 18 05/18/22 07:57 BP 142/68 H 05/18/22 07:57 Pulse Ox 98 05/18/22 07:57 O2 Del Method 05/18/22 07:57 Pertinent Lab Results Pertinent Lab Results: Laboratory Tests 05/18/22 07:58 POC Glucose 81 Airway Mallampati Class: IV TM Dist: >3cm Partial: Upper and Lower Loose/Missing/Broken Teeth: Yes Heart: S1,S2 Lungs: b/l breath sounds Assessment and Plan Assessment Anesthesia Assessment: Anesthesia Plan Discussed and Chart Reviewed Final Anesthetic Review Family History of Problems with Anesthesia: No History of Problems with Anesthesia: No NPO: Yes ASA Class: III Final Preanesthetic Review: Meds/Allgs Chart Reviewed, Consent Obtained/Reviewed and Anes Risks/Benef Reviewed Patient Risk: High Procedure Risk: Intermediate Anesthetic Plan Anesthetic Plan: MAC: Disposition: Standard PACU
--- NOTE | 2022-05-18 08:10 | MHC.SHP ---
Pre-Procedural Eval Section A Date of Service: 05/18/22 The patient is an INPATIENT: No The History & Physical has been completed within 30 days and I have reviewed it.: Yes Section B Chief Complaint: bleeding,wt loss Allergies: Allergies Allergy/AdvReac Type Severity Reaction Status Date / Time No Known Allergies Allergy Verified 05/12/22 12:24 Plan Diagnosis/Plan: Unchanged I have reviewed the history and physical and performed a pertinent physical examination on my patient. No changes have occurred unless specified.
[2022-05-18 08:48] VITALS: BP 95/56; PULSE 65; RESP 16; TEMP 36.8; O2SAT 98
--- NOTE | 2022-05-18 08:48 | W.PM.OPN ---
Operative Note Operative Note Date of Service: 05/18/22 Narrative: Operative Information Procedure Description: Sigmoidoscopy Indication: tenesmus and blood loss Anesthesia: MAC COLONOSCOPY Instrument: Olympus variable stiffness pediatric scope 190L sigmoidoscopy Monitoring: Vital signs and clinical assessment, continuous EKG monitoring, Pulse oximetry, Carbon Dioxide monitoring and blood pressure monitoring were done throughout the procedure. Procedure: The patient was placed in the left lateral decubitis position and pre-procedure medications were administered. After a digital rectal examination of the ano-rectum, the video colonoscope was inserted into the rectum and advanced through the colon to the transverse colon The colonoscope was slowly withdrawn in a retrograde panoramic fashion and the colon mucosa was carefully examined including a retroflexed view of the rectum. Findings and interventions are described below. Procedure Difficulty: easy Findings: Random colon bx taken due to CT imaging at [facility] with thickening of recto sigmoid Solid stools seen in colon, no blood Transverse Colon -normal Descending Colon:normal Sigmoid Colon: moderate diverticulosis Rectum: Retroflexion with small inflammed internal hemorrhoids, grade I Anorectum - normal Impression and Post Procedure Diagnosis: internal hemorrhoids diverticulosis Plan: High fiber diet leaflet Avoid straining at stool, epsom salts and sitz bath, anusol supps or cream Above findings were reviewed with the patient and relevant handouts were provided if indicated.
[2022-05-18 09:03] VITALS: BP 96/60; PULSE 71; RESP 16; TEMP 36.5; O2SAT 97
[2022-05-18 09:18] VITALS: BP 142/68; PULSE 61; RESP 16; TEMP 36.5; O2SAT 97
== END 2022-05-18 09:57 | disposition home or self-care (01) ==
PROVIDERS: Visit Provider Internal Medicine Gastroenterology
PROC: 0DJD8ZZ Inspection of Lower Intestinal Tract, Via Natural or Artificial Opening Endoscopic (ICD-10-PCS; CPT 45330; principal; 2022-05-18 08:00)
DX: K62.5 Hemorrhage of anus and rectum (principal); Z86.010 Personal history of colon polyps; R63.4 Abnormal weight loss; R19.8 Other specified symptoms and signs involving the digestive system and abdomen; K52.9 Noninfective gastroenteritis and colitis, unspecified; K57.30 Diverticulosis of large intestine without perforation or abscess without bleeding; K64.0 First degree hemorrhoids; K21.00 Gastro-esophageal reflux disease with esophagitis, without bleeding; I48.92 Unspecified atrial flutter; I10 Essential (primary) hypertension; E78.5 Hyperlipidemia, unspecified; J45.909 Unspecified asthma, uncomplicated; E11.9 Type 2 diabetes mellitus without complications; Z79.899 Other long term (current) drug therapy; Z90.49 Acquired absence of other specified parts of digestive tract
CPT/HCPCS: 45331; 82947; 88305

== ENCOUNTER → 2022-06-02 11:18 | Outpatient (BNVA) | payer MEDICARE, MEDICAID, SELFPAY | PROVIDERS: Visit Provider Internal Medicine Gastroenterology | DX: Z98.890 Other specified postprocedural states (principal) | CPT/HCPCS: 99212 ==

== ENCOUNTER 2022-09-11 11:32 | Outpatient (REF) | payer MEDICARE, MEDICAID, SELFPAY ==
--- NOTE | ~2022-09-11 | XR_ITS ---
EXAMINATION: XR LUMBOSACRAL SPINE CLINICAL INFORMATION: Back pain COMPARISON: None TECHNIQUE: Three views of the lumbosacral spine. FINDINGS: Bone alignment is normal. No fracture or dislocation. Degenerative spondylosis and degenerative disc disease greatest from L3-L4 to L5-S1. Lower lumbar spine facet arthritis. Atherosclerotic disease. XR/XR lumbar spine 2-3V IMPRESSION: Degenerative changes.
== END 2022-09-11 11:33 | disposition home or self-care (01) ==
LOC: HO.XRAY 11:32
PROVIDERS: Visit Provider Internal Medicine
DX: M54.50 Low back pain, unspecified (principal)
CPT/HCPCS: 72100

== ENCOUNTER → 2022-10-02 08:43 | Outpatient (BNVA) | payer MEDICARE, MEDICAID, SELFPAY | PROVIDERS: PCP Family Medicine; Visit Provider Internal Medicine Gastroenterology | DX: R10.11 Right upper quadrant pain (principal); E46 Unspecified protein-calorie malnutrition | CPT/HCPCS: 99212 ==

== ENCOUNTER 2022-10-20 14:09 | Emergency (ER) | payer MEDICARE, MEDICAID, SELFPAY ==
--- NOTE | ~2022-10-20 | US_ITS ---
EXAMINATION: US ABDOMEN LIMITED CLINICAL INFORMATION: Right upper quadrant pain. COMPARISON: CT abdomen pelvis with contrast 05/16/2022 TECHNIQUE: Real-time imaging of the right upper quadrant abdominal viscera. FINDINGS: PANCREAS: The head of the pancreas is homogeneous echotexture. The body and the tail is obscured by overlying gas. LIVER: There is anechoic cyst or mass in the left hepatic lobe measuring 2.1 x 2.4 x 2.5 cm. The liver is normal in size. The liver contour is normal. Parenchymal echogenicity is normal. No focal hepatic lesion. There is no intrahepatic biliary duct dilatation seen. GALLBLADDER: The gallbladder wall thickness is 0.4 cm. The gallbladder is physiologically distended without evidence of stones, sludge, polyps, wall thickening or pericholecystic fluid. COMMON BILE DUCT: Normal in caliber measuring 0.3 cm in diameter. RIGHT KIDNEY: Normal. No hydronephrosis. No renal calculi or focal parenchymal lesions. The kidney measures 9.3 cm in maximum dimension. FREE FLUID: None. US/US abdomen limited IMPRESSION: 1. Hyperechoic lesion left hepatic lobe measuring 2.5 cm. On previous it measured 2.4 cm. 2. Visualized gallbladder, CBD, right kidney and the head of the pancreas is unremarkable.
[2022-10-20 14:15] VITALS: BP 151/66; PULSE 83; RESP 16; TEMP 37; O2SAT 97; BMI 30.2
--- NOTE | 2022-10-20 14:18 | ED_ITS ---
HPI - General Adult General Chief complaint: General Medical <Maren Olivera CNP - Last Filed: 10/20/22 14:25> Stated complaint: No Feeling Well <Maren Olivera CNP - Last Filed: 10/20/22 14:25> Time Seen by Provider: 10/20/22 22:06 <Maren Olivera CNP - Last Filed: 10/20/22 14:25> Source: patient <Ciarra Wallis MD - Last Filed: 10/20/22 22:31> Mode of arrival: ambulatory <Ciarra Wallis MD - Last Filed: 10/20/22 22:31> Limitations: no limitations <Ciarra Wallis MD - Last Filed: 10/20/22 22:31> History of Present Illness HPI narrative: Patient comes emergency room complaining of abdominal pain, distension for several months. Patient states that he has been seen by Gastroenterology, he has had endoscopies and colonoscopies. Patient has an appointment pending in November. Patient states that sometimes the distension gives him shortness of breath. At this time, patient does not have any chest pain or shortness of br eath. Patient states that he has also chronic diffuse body pains <Ciarra Wallis MD - Last Filed: 10/20/22 22:31> Related Data Home medications: Home Medications Medication Instructions Recorded Confirmed amlodipine 5 mg tablet 5 mg PO DAILY 01/12/21 09/05/22 atorvastatin 40 mg tablet 40 mg PO DAILY 01/12/21 09/05/22 docusate sodium 100 mg capsule 100 mg PO BID 01/12/21 09/05/22 ferrous sulfate 324 mg (65 mg 324 mg PO DAILY 01/12/21 09/05/22 iron) tablet,delayed release furosemide 20 mg tablet 20 mg PO DAILY 01/12/21 09/05/22 lisinopril 20 mg tablet 20 mg PO BID 01/12/21 09/05/22 albuterol sulfate 90 mcg/actuation 2 puff inhalation Q4-6H PRN 05/13/21 09/05/22 aerosol inhaler (ProAir HFA) Shortness Of Breath Or Wheezing aspirin 81 mg tablet,delayed 81 mg PO DAILY 05/13/21 09/05/22 release ketoconazole 2 % shampoo 1 appl topical DAILY 04/18/22 09/05/22 metoprolol succinate 25 mg 1 tab PO DAILY 05/03/22 09/05/22 tablet,extended release 24 hr Previous Rx's Medication Instructions Recorded polyethylene glycol 3350 17 238 g PO DAILY colo prep 1 day 02/15/21 gram/dose oral powder (Miralax) #238 grams hydrocortisone acetate 25 mg 25 mg NC BEDTIME #12 ea 05/18/22 rectal suppository (Anusol-HC) polyethylene glycol 3350 17 17 g PO DAILY #238 grams 05/18/22 gram/dose oral powder (Miralax) psyllium husk (with sugar) 3.4 1 tbsp PO DAILY #30 ea 05/18/22 gram oral powder packet (Metamucil (with sugar)) rifaximin 550 mg tablet 550 mg PO TID 2 weeks #42 tabs 06/02/22 pantoprazole 40 mg tablet,delayed 40 mg PO BID #60 tabs 10/02/22 release hyoscyamine sulfate 0.125 mg tablet 0.125 mg PO QID #20 tabs 10/20/22 polyethylene glycol 3350 17 17 g PO DAILY #238 grams 10/20/22 gram/dose oral powder (Miralax) simethicone 180 mg capsule (Gas 180 mg PO TID PRN abdominal 10/20/22 Relief (simethicone)) distention #20 caps <Maren Olivera CNP - Last Filed: 10/20/22 14:25> Allergies/adverse reactions: Allergies Allergy/AdvReac Type Severity Reaction Status Date / Time No Known Allergies Allergy Verified 10/02/22 08:59 <Maren Olivera CNP - Last Filed: 10/20/22 14:25> Review of Systems Review of Systems: Constitutional : No Weight loss, No Fever, No Chills, No Night Sweats, complaining of diffuse body aches for months ENT/Mouth : No Hearing loss, No Ear Pain, No Nasal Congestion, No Sinus Pain, No Hoarseness, No sore throat, No Rhinorrhea, No Swallowing Difficulty Eyes: No Eye Pain, No Swelling, No Redness, No Foreign Body, No Discharge, No Vision Changes Cardiovascular : No Chest Pain, No SOB, No Dyspnea on Exertion, No Orthopnea, No Edema, No Palpitations Respiratory : No Cough, No Sputum, No Wheezing, No Smoke Exposure, No Dyspnea Gastrointestinal : No Nausea, No Vomiting, No Diarrhea, No Constipation, c omplaining of diffuse abdominal distension Genitourinary : no irregular bleeding, No Dysuria, No Urinary Frequency, No Hematuria, No Urinary Incontinence, No Urgency, No Flank Pain, No Urinary Flow Changes, No Hesitancy Musculoskeletal : No joint pain, No Myalgias, No Joint Swelling Skin : No Skin Lesions, No rash Neuro : No Weakness, No Numbness, No Paresthesias, No Loss of Consciousness, No Dizziness, No Headache Psych : No Anxiety/Panic, No Depression, No SI/HI/AH/VH, No Social Issues, Heme/Lymph: No Bruising, No Bleeding,No Lymphadenopathy Endocrine : No Polyuria, No Polydipsia, No Temperature Intolerance <Ciarra Wallis MD - Last Filed: 10/20/22 22:31> [facility] Past Medical History Medical History: Medical History Anemia Asthma Bleeding hemorrhoids COVID-19 vaccine series completed Diabetes Elevated cholesterol GERD with esophagitis History of cardioversion HTN (hypertension) Hx of atrial flutter Low back pain Rectal bleeding Tubular adenoma of colon <Maren Olivera CNP - Last Filed: 10/20/22 14:25> Surgical History: Surgical History H/O colonoscopy History of esophagogastroduodenoscopy (EGD) Hx of appendectomy Hx of cardiac catheterization Hx of eye surgery Hx of resection of small bowel <Maren Olivera CNP - Last Filed: 10/20/22 14:25> Family History Family History: Family History Mother Heart attack Cancer <Maren Olivera CNP - Last Filed: 10/20/22 14:25> Social History Social History: Social History Household Members: None Housing: Apartment Are you a primary care manager to a significant other at home: No Do you presently have visiting nurse or other home services: No Patient Tobacco Use Status: Never used Tobacco Second Hand Smoke Exposure: No Advance Directives: No Advance Directives Information Provided: Yes service: No Current occupational status: retired <Maren Adelinemyranda Olivera CNP - Last Filed: 10/20/22 14:25> Physical Exam ED Vital Signs: Vital Signs - 24 hr 10/20/22 14:15 Temperature 98.6 F Pulse Rate 83 Respiratory Rate 16 Blood Pressure 151/66 H Pulse Oximetry 97 Oxygen Delivery Method Room Air BMI result Body Mass Index 30.2 <Maren Adelinemyranda Olivera CNP - Last Filed: 10/20/22 14:25> Vital Signs - 24 hr 10/20/22 14:15 Temperature 98.6 F Pulse Rate 83 Respiratory Rate 16 Blood Pressure 151/66 H Pulse Oximetry 97 Oxygen Delivery Method Room Air BMI result Body Mass Index 30.2 <Ciarra Wallis MD - Last Filed: 10/20/22 22:31> Const Other: Appearance: Alert. Oriented X3. No acute distress. Well appearing Eyes: Pupils equal, round and reactive to light. ENT: Pharynx normal. Neck: Normal inspection. Neck supple. No lymph nodes noted. No crepitus CVS: Normal heart rate and rhythm. Pulses normal. Normal S1 and S2 Respiratory: No respiratory distress. Breath sounds normal. No Wheezing. No rales Abdomen: Soft and nontender. No rigidity. No distention. Skin: Skin warm and dry. Normal skin color. Normal skin turgor. Extremities: No lower extremity edema. No Lacerations. No Rash Neuro: Oriented X 3. No motor deficit. No sensory deficit. Moving all extremities. No slurred speech. CN 2 through 12 grossly intact Psych: calm, cooperative, normal affect <Ciarra Wallis MD - Last Filed: 10/20/22 22:31> Course Course Course Narrative: This is an RME: Additional HPI, ROS, PE not included below will be deferred to primary provider. Patient is an 82-year-old male who presents to the emergency department complaining of intermittent abdominal pain and shortness of breath x months, followed by GI Dr. Chandler, awaiting ABD ultrasound. Also reporting pain to back, legs, shoulders, headache which is also going on for a long time . He is most concerned about his abdominal pain, RUQ, feels like a tightness, and has assoc iated nausea with onset today which he has never had in the past. Denies fevers, chills, chest pain. Denies sick contacts. Plan: labs, EKG, urinalysis, US RUQ, viral testing <Maren Olivera CNP - Last Filed: 10/20/22 14:25> This is an RME: Additional HPI, ROS, PE not included below will be deferred to primary provider. Patient is an 82-year-old male who presents to the emergency department complaining of intermittent abdominal pain and shortness of breath x months, followed by GI Dr. Chandler, awaiting ABD ultrasound. Also reporting pain to back, legs, shoulders, headache which is also going on for a long time . He is most concerned about his abdominal pain, RUQ, feels like a tightness, and has associated nausea with onset today which he has never had in the past. Denies fevers, chills, chest pain. Denies sick contacts. Plan: labs, EKG, urinalysis, US RUQ, viral testing In triage, an ultrasound was ordered, does not show any acute abnormalities. Patient has hepatic lobe lesion which was previously visualized. Measuring 2.5 cm, previously 2.5 cm. <Ciarra Wallis MD - Last Filed: 10/20/22 22:31> Medical Decision Making Medical Decision Making MDM Narrative: I discussed the labs and imaging with the patient, no acute findings. Patient willing to try simethicone p.r.n., hyoscyamine. Patient has an appointment pending with Dr. Ritter <Ciarra Wallis MD - Last Filed: 10/20/22 22:31> Lab Data [facility] Lab Attestation statement: I reviewed the patient's lab results. <Ciarra Wallis MD - Last Filed: 10/20/22 22:31> Result Diagrams: : 10/20/22 14:55 10/20/22 14:55 <Maren Olivera CNP - Last Filed: 10/20/22 14:25> Labs: Lab Results 10/20/22 10/20/22 10/20/22 Range/Units 14:55 14:55 14:55 WBC 8.8 (4.8-10.8) X10*3/uL RBC 4.38 L (4.60-5.80) X10*6/uL Hgb 12.4 L (14.0-18.0) g/dl Hct 39.6 L (42.0-52.0) % MCV 90.4 (80.0-98.0) fL MCH 28.3 (27.0-33.0) pg MCHC 31.3 (31.0-36.0) g/dl RDW 12.8 (11.0-16.0) % Plt Count 199 (160-400) X10*3/uL MPV 10.5 (9.4-12.4) fL Immature Gran % (Auto) 0.3 (0.0-0.4) % Neut % (Auto) 75.6 H (45-73) % Lymph % (Auto) 14.3 L (20-40) % [place] % (Auto) 8.2 (2-11) % Eos % (Auto) 1.1 (0-4) % Baso % (Auto) 0.5 (0-2) % Lymph # (Auto) 1.3 (1.2-4.9) X10*3/uL [place] # (Auto) 0.7 (0.1-1.2) X10*3/uL Eos # (Auto) 0.1 (0.0-0.4) X10*3/uL Baso # (Auto) 0.0 (0.0-0.2) X10*3/uL Abs Immat Gran (auto) 0.03 (0.00-0.03) X10*3/uL Absolute Neuts (auto) 6.7 (2.0-8.3) x10*3/uL Absolute Nucleated RBC 0.000 (0.0-0.012) X10*3/uL Nucleated RBC % (auto) 0.0 (0.0-0.2) /100WBC Sodium 138 (135-145) mmol/L Potassium 3.6 (3.3-5.1) mmol/L Chloride 102 (96-108) mmol/L Carbon Dioxide 29 (22-29) mmol/L Anion Gap 11 L (12-20) BUN 12 (9-16) mg/dL Creatinine 0.77 (0.5-1.4) mg/dL Estim Creat Clear Calc 64.2 Estimated GFR > 60 Random Glucose 106 (60-115) mg/dL Calcium 8.7 (8.4-10.2) mg/dL Total Bilirubin 1.2 H (0.0-1.0) mg/dL AST 18 (5-37) U/L ALT 15 (0-40) U/L Alkaline Phosphatase 61 (39-117) U/L Troponin I High Sens 6.7 (<3.5-35.0) ng/L Total Protein 6.0 L (6.5-8.0) g/dL Albumin 3.7 (3.5-5.0) g/dL Lipase 36 (8-78) U/L COVID-19 (AUREA) (Negative) COVID-19 Clin Com Influenza Type A (JOSE) (Negative) Influenza Type B (JOSE) (Negative) Influenza A & B Note 10/20/22 10/20/22 Range/Units 14:55 14:55 WBC (4.8-10.8) X10*3/uL RBC (4.60-5.80) X10*6/uL Hgb (14.0-18.0) g/dl Hct (42.0-52.0) % MCV (80.0-98.0) fL MCH (27.0-33.0) pg MCHC (31.0-36.0) g/dl RDW (11.0-16.0) % Plt Count (160-400) X10*3/uL MPV (9.4-12.4) fL Immature Gran % (Auto) (0.0-0.4) % Neut % (Auto) (45-73) % Lymph % (Auto) (20-40) % [place] % (Auto) (2-11) % Eos % (Auto) (0-4) % Baso % (Auto) (0-2) % Lymph # (Auto) (1.2-4.9) X10*3/uL [place] # (Auto) (0.1-1.2) X10*3/uL Eos # (Auto) (0.0-0.4) X10*3/uL Baso # (Auto) (0.0-0.2) X10*3/uL Abs Immat Gran (auto) (0.00-0.03) X10*3/uL Absolute Neuts (auto) (2.0-8.3) x10*3/uL Absolute Nucleated RBC (0.0-0.012) X10*3/uL Nucleated RBC % (auto) (0.0-0.2) /100WBC Sodium (135-145) mmol/L Potassium (3.3-5.1) mmol/L Chloride (96-108) mmol/L Carbon Dioxide (22-29) mmol/L Anion Gap (12-20) BUN (9-16) mg/dL Creatinine (0.5-1.4) mg/dL Estim Creat Clear Calc Estimated GFR Random Glucose (60-115) mg/dL Calcium (8.4-10.2) mg/dL Total Bilirubin (0.0-1.0) mg/dL AST (5-37) U/L ALT (0-40) U/L Alkaline Phosphatase (39-117) U/L Troponin I High Sens (<3.5-35.0) ng/L Total Protein (6.5-8.0) g/dL Albumin (3.5-5.0) g/dL Lipase (8-78) U/L COVID-19 (AUREA) Negative (Negative) COVID-19 Clin Com See Note Influenza Type A (JOSE) Negative (Negative) Influenza Type B (JOSE) Negative (Negative) Influenza A & B Note See Note <Marne Olivera, PAGE DESIGNER - Last Filed: 10/20/22 14:25> Lab Results 10/20/22 10/20/22 10/20/22 Range/Units 14:55 14:55 14:55 WBC 8.8 (4.8-10.8) X10*3/uL RBC 4.38 L (4.60-5.80) X10*6/uL Hgb 12.4 L (14.0-18.0) g/dl Hct 39.6 L (42.0-52.0) % MCV 90.4 (80.0-98.0) fL MCH 28.3 (27.0-33.0) pg MCHC 31.3 (31.0-36.0) g/dl RDW 12.8 (11.0-16.0) % Plt Count 199 (160-400) X10*3/uL MPV 10.5 (9.4-12.4) fL Immature Gran % (Auto) 0.3 (0.0-0.4) % Neut % (Auto) 75.6 H (45-73) % Lymph % (Auto) 14.3 L (20-40) % [place] % (Auto) 8.2 (2-11) % Eos % (Auto) 1.1 (0-4) % Baso % (Auto) 0.5 (0-2) % Lymph # (Auto) 1.3 (1.2-4.9) X10*3/uL [place] # (Auto) 0.7 (0.1-1.2) X10*3/uL Eos # (Auto) 0.1 (0.0-0.4) X10*3/uL Baso # (Auto) 0.0 (0.0-0.2) X10*3/uL Abs Immat Gran (auto) 0.03 (0.00-0.03) X10*3/uL Absolute Neuts (auto) 6.7 (2.0-8.3) x10*3/uL Absolute Nucleated RBC 0.000 (0.0-0.012) X10*3/uL Nucleated RBC % (auto) 0.0 (0.0-0.2) /100WBC Sodium 138 (135-145) mmol/L Potassium 3.6 (3.3-5.1) mmol/L Chloride 102 (96-108) mmol/L Carbon Dioxide 29 (22-29) mmol/L Anion Gap 11 L (12-20) BUN 12 (9-16) mg/dL Creatinine 0.77 (0.5-1.4) mg/dL Estim Creat Clear Calc 64.2 Estimated GFR > 60 Random Glucose 106 (60-115) mg/dL Calcium 8.7 (8.4-10.2) mg/dL Total Bilirubin 1.2 H (0.0-1.0) mg/dL AST 18 (5-37) U/L ALT 15 (0-40) U/L Alkaline Phosphatase 61 (39-117) U/L Troponin I High Sens 6.7 (<3.5-35.0) ng/L Total Protein 6.0 L (6.5-8.0) g/dL Albumin 3.7 (3.5-5.0) g/dL Lipase 36 (8-78) U/L COVID-19 (AUREA) (Negative) COVID-19 Clin Com Influenza Type A (JOSE) (Negative) Influenza Type B (JOSE) (Negative) Influenza A & B Note 10/20/22 10/20/22 Range/Units 14:55 14:55 WBC (4.8-10.8) X10*3/uL RBC (4.60-5.80) X10*6/uL Hgb (14.0-18.0) g/dl Hct (42.0-52.0) % MCV (80.0-98.0) fL MCH (27.0-33.0) pg MCHC (31.0-36.0) g/dl RDW (11.0-16.0) % Plt Count (160-400) X10*3/uL MPV (9.4-12.4) fL Immature Gran % (Auto) (0.0-0.4) % Neut % (Auto) (45-73) % Lymph % (Auto) (20-40) % [place] % (Auto) (2-11) % Eos % (Auto) (0-4) % Baso % (Auto) (0-2) % Lymph # (Auto) (1.2-4.9) X10*3/uL [place] # (Auto) (0.1-1.2) X10*3/uL Eos # (Auto) (0.0-0.4) X10*3/uL Baso # (Auto) (0.0-0.2) X10*3/uL Abs Immat Gran (auto) (0.00-0.03) X10*3/uL Absolute Neuts (auto) (2.0-8.3) x10*3/uL Absolute Nucleated RBC (0.0-0.012) X10*3/uL Nucleated RBC % (auto) (0.0-0.2) /100WBC Sodium (135-145) mmol/L Potassium (3.3-5.1) mmol/L Chloride (96-108) mmol/L Carbon Dioxide (22-29) mmol/L Anion Gap (12-20) BUN (9-16) mg/dL Creatinine (0.5-1.4) mg/dL Estim Creat Clear Calc Estimated GFR Random Glucose (60-115) mg/dL Calcium (8.4-10.2) mg/dL Total Bilirubin (0.0-1.0) mg/dL AST (5-37) U/L ALT (0-40) U/L Alkaline Phosphatase (39-117) U/L Troponin I High Sens (<3.5-35.0) ng/L Total Protein (6.5-8.0) g/dL Albumin (3.5-5.0) g/dL Lipase (8-78) U/L COVID-19 (AUREA) Negative (Negative) COVID-19 Clin Com See Note Influenza Type A (JOSE) Negative (Negative) Influenza Type B (JOSE) Negative (Negative) Influenza A & B Note See Note <Ciarra Wallis MD - Last Filed: 10/20/22 22:31> Radiology Impression Discussion of test interpretation with radiology: I have reviewed the radiologist's reading. <Ciarra Wallis MD - Last Filed: 10/20/22 22:31> Radiologist Impression: INDINGS: PANCREAS: The head of the pancreas is homogeneous echotexture. The body and the tail is obscured by overlying gas. LIVER: There is anechoic cyst or mass in the left hepatic lobe measuring 2.1 x 2.4 x 2.5 cm. The liver is normal in size. The liver contour is normal. Parenchymal echogenicity is normal. No focal hepatic lesion. There is no intrahepatic biliary duct dilatation seen. GALLBLADDER: The gallbladder wall thickness is 0.4 cm. The gallbladder is physiologically distended without evidence of stones, sludge, polyps, wall thickening or pericholecystic fluid. COMMON BILE DUCT: Normal in caliber measuring 0.3 cm in diameter. RIGHT KIDNEY: Normal. No hydronephrosis. No renal calculi or focal parenchymal lesions. The kidney measures 9.3 cm in maximum dimension. FREE FLUID: None. US/US abdomen limited IMPRESSION: 1.? Hyperechoic lesion left hepatic lobe measuring 2.5 cm. On previous it measured 2.4 cm. 2.? Visualized gallbladder, CBD, right kidney and the head of the pancreas is unremarkable. ? <Ciarra Wallis MD - Last Filed: 10/20/22 22:31> Discharge Plan Discharge Clinical Impression: Chronic abdominal pain <Maren Olivera CNP - Last Filed: 10/20/22 14:25> Patient Disposition: Home, Self-Care <Maren Olivera CNP - Last Filed: 10/20/22 14:25> Instructions: Abdominal Pain (ED) <Maren Olivera CNP - Last Filed: 10/20/22 14:25> Additional Instructions: Please follow-up with your primary care physician tomorrow. If you have any worsening or new symptoms, please return to the emergency room or call 911 <Maren Olivera CNP - Last Filed: 10/20/22 14:25> Prescriptions: New hyoscyamine sulfate 0.125 mg tablet 0.125 mg PO QID Qty: 20 0RF polyethylene glycol 3350 [Miralax] 17 gram/dose powder 17 g PO DAILY Qty: 238 0RF simethicone [Gas Relief (simethicone)] 180 mg capsule 180 mg PO TID PRN (Reason: abdominal distention) Qty: 20 0RF No Action polyethylene glycol 3350 [Miralax] 17 gram/dose powder 238 g PO DAILY 1 Days Qty: 238 0RF aspirin [Aspir-81] 81 mg Tablet,Delayed Release (Dr/Ec) 81 mg PO DAILY albuterol sulfate [ProAir HFA] 90 mcg/actuation Hfa Aerosol Inhaler 2 puff INHALATION Q4-6H PRN (Reason: Shortness Of Breath Or Wheezing) metoprolol succinate 25 mg tablet extended release 24 hr 1 tab PO DAILY hydrocortisone acetate [Anusol-HC] 25 mg suppository 25 mg NC BEDTIME Qty: 12 0RF polyethylene glycol 3350 [Miralax] 17 gram/dose powder 17 g PO DAILY Qty: 238 3RF Metamucil (with sugar) 3.4 gram powder in packet 1 tbsp PO DAILY Qty: 30 3RF amlodipine 5 mg tablet 5 mg PO DAILY ferrous sulfate 324 mg (65 mg iron) tablet,delayed release (DR/EC) 324 mg PO DAILY lisinopril 20 mg tablet 20 mg PO BID furosemide 20 mg tablet 20 mg PO DAILY atorvastatin 40 mg tablet 40 mg PO DAILY docusate sodium 100 mg capsule 100 mg PO BID ketoconazole 2 % shampoo 1 appl topical DAILY rifaximin 550 mg tablet 550 mg PO TID 14 Days Qty: 42 0RF pantoprazole 40 mg tablet,delayed release (DR/EC) 40 mg PO BID Qty: 60 2RF <Maren Olivera, CHANTALE - Last Filed: 10/20/22 14:25>
--- NOTE | 2022-10-20 14:23 | ECG_ITS ---
Test Reason : weakness Blood Pressure : / mmHG Vent. Rate : 064 BPM Atrial Rate : 064 BPM P-R Int : 164 ms QRS Dur : 096 ms QT Int : 406 ms P-R-T Axes : 035 -50 029 degrees QTc Int : 418 ms Normal sinus rhythm Left axis deviation Incomplete right bundle branch block Abnormal ECG When compared with ECG of 14-APR-2022 15:36, No significant change was found Referred By: Maren Olivera Electronically Signed By:DARON FERNANDEZ MD
[2022-10-20 15:01] LABS: MANUAL DIFF FLAG NO
[2022-10-20 15:08] LABS: Basophils Percent Auto 0.5 % (0-2); Eosinophils Absolute Auto 0.1 X10*3/uL (0.0-0.4); Eosinophils Percent Auto 1.1 % (0-4); Hematocrit 39.6 % (42.0-52.0); Hemoglobin 12.4 g/dl (14.0-18.0); Imm Gran Abs Auto 0.03 X10*3/uL (0.00-0.03); Imm Gran Pct Auto 0.3 % (0.0-0.4); Lymphocytes Absolute Auto 1.3 X10*3/uL (1.2-4.9); Lymphocytes Percent Auto 14.3 % (20-40); Mean Corpuscular HGB Conc 31.3 g/dl (31.0-36.0); Mean Corpuscular Hemoglobin 28.3 pg (27.0-33.0); Mean Corpuscular Volume 90.4 fL (80.0-98.0); Mean Platelet Volume 10.5 fL (9.4-12.4); Monocytes Absolute Auto 0.7 X10*3/uL (0.1-1.2); Monocytes Percent Auto 8.2 % (2-11); Neutrophils Absolute Auto 6.7 x10*3/uL (2.0-8.3); Neutrophils Percent Auto 75.6 % (45-73); Platelet Count 199 X10*3/uL (160-400); Red Blood Count 4.38 X10*6/uL (4.60-5.80); Red Cell Distribution Width 12.8 % (11.0-16.0); White Blood Count 8.8 X10*3/uL (4.8-10.8)
[2022-10-20 15:19] LABS: COVID-19 Test Negative (Negative); IDNOW Serial# 6674DD1D
[2022-10-20 15:20] LABS: IDNOW Serial# 55D5AD1C; Influenza A Negative (Negative); Influenza B2 Negative (Negative)
[2022-10-20 15:44] LABS: Alanine Aminotransferase 15 U/L (0-40); Albumin Level 3.7 g/dL (3.5-5.0); Alkaline Phosphatase 61 U/L (39-117); Anion Gap 11 (12-20); Aspartate Amino Transferase 18 U/L (5-37); Bilirubin Total 1.2 mg/dL (0.0-1.0); Blood Urea Nitrogen 12 mg/dL (9-16); Calcium 8.7 mg/dL (8.4-10.2); Carbon Dioxide 29 mmol/L (22-29); Chloride 102 mmol/L (96-108); Creatinine Clr Calc Pharmacy 64.2; Estimated Glomerular Filt Rate > 60; Glucose Random 106 mg/dL (60-115); Lipase 36 U/L (8-78); Potassium 3.6 mmol/L (3.3-5.1); Sodium 138 mmol/L (135-145)
[2022-10-20 17:27] LABS: Troponin-I High Sensitivity 6.7 ng/L (<3.5-35.0)
[2022-10-20 22:26] VITALS: BP 142/59; PULSE 59; TEMP 36.7; O2SAT 94
== END 2022-10-20 23:06 | disposition home or self-care (01) ==
PROVIDERS: Nurse Practitioner Family; Emergency Provider Emergency Medicine; PCP Family Medicine
DX: R10.13 Epigastric pain (principal); Z20.822 Contact with and (suspected) exposure to COVID-19; Z79.899 Other long term (current) drug therapy
CPT/HCPCS: 76705; 80053; 83690; 84484; 85025; 87502; 87635; 93005; 99284

== ENCOUNTER 2022-11-09 07:25 | Outpatient (REF) | payer MEDICARE, OTHER, SELFPAY ==
--- NOTE | ~2022-11-09 | US_ITS ---
EXAMINATION: US COMPLETE ABDOMEN WITH LIVER ELASTOGRAPHY CLINICAL INFORMATION: Right upper quadrant pain. COMPARISON: Ultrasound abdomen limited 10/20/2022. TECHNIQUE: Real-time imaging of the abdominal viscera. Noninvasive ultrasound liver fibrosis assessment is performed using Liliam ElastPQ point quantification shear wave elastography (2D-SWE) with a C5-2 MHz transducer. Multiple elastography samples are obtained. FINDINGS: The exam is limited due to body habitus and bowel gas pattern. PANCREAS: The pancreas is partially obscured by overlying gas. ABDOMINAL AORTA: The proximal, middle, and distal aortic segments are normal in caliber. INFERIOR VENA CAVA: Visualized portions are normal. LIVER: The liver demonstrates normal size, contour and echogenicity. There is an anechoic cyst measuring 1.7 x 2.0 x 2.5 cm. No additional lesions seen. There is no intrahepatic ductal dilatation seen. The right lobe measures 10.2 cm in length. The left lobe measures 7.4 cm in length. Portal flow is hepatopedal. Shear wave liver elastography median stiffness is 1.25 m/s (reference: normal median stiffness is 1.3 m/s or less). IQR/median stiffness to assess sampling precision is 0.36 (reference: good quality data set is IQR/median stiffness of 0.15 or less). GALLBLADDER: There are echogenic nonmobile lesions along the inner gallbladder wall suggestive of adenomyomatosis. COMMON BILE DUCT: Normal in caliber measuring 0.3 cm in diameter. RIGHT KIDNEY: Normal. No hydronephrosis. No renal calculi or focal parenchymal lesions. The kidney measures 8.9 cm in maximum dimension. LEFT KIDNEY: There is an anechoic cyst lower pole measuring 5.9 x 4.2 x 4.9 cm. No hydronephrosis. No renal calculi or focal parenchymal lesions. The kidney measures 9.1 cm in maximum dimension. SPLEEN: Normal. The spleen measures 8.4 cm in maximum dimension. FREE FLUID: None. US/US abdomen comp w elastography IMPRESSION: 1. Suspect adenomyomatosis of the gallbladder. The liver is unremarkable. 2. Anechoic cyst lower pole left kidney. 3. Liver elastography: Median liver stiffness measures 1.25 m/s corresponding to high probability normal. REFERENCE: Society of Radiologists in Ultrasound Liver Stiffness Thresholds (2019): LIVER STIFFNESS THRESHOLDS: *Liver Stiffness equal or less than 1.3 m/s: High probability of being normal. *Liver Stiffness less than 1.7 m/s: In the absence of other known clinical signs, rules out compensated advanced chronic liver disease. *Liver Stiffness 1.7-2.1 m/s: Suggestive of compensated advanced chronic liver disease but need further test for confirmation. *Liver Stiffness over 2.1 m/s: Rules in compensated advanced chronic liver disease. *Liver Stiffness over 2.4 m/s: Suggestive of clinically significant portal hypertension. QUALITY OF DATA SET: *IQR/Median value equal or less than 0.15 implies a quality data set. *IQR/Median value over 0.15 implies a poor quality data set. SIGNIFICANT CHANGE FROM PRIOR EXAM: Significant change if liver stiffness measurement is 10% or greater from prior exam. OTHER CONSIDERATIONS: The stage of liver fibrosis may be overestimated in the setting of acute hepatitis, liver inflammation, elevated liver function tests, hepatic vascular congestion, obstructive cholestasis, non-fasting state, and infiltrative diseases such as amyloidosis and lymphoma. In some patients with NAFLD, the liver stiffness thresholds for compensated advanced chronic liver disease may be lower. In causes other than viral hepatitis and NAFLD, liver stiffness thresholds are not well established.
== END 2022-11-09 07:26 | disposition home or self-care (01) ==
LOC: HO.US 07:25
PROVIDERS: PCP Family Medicine; Visit Provider Internal Medicine Gastroenterology
DX: R10.11 Right upper quadrant pain (principal)
CPT/HCPCS: 76705; 76981

== ENCOUNTER 2023-03-02 11:02 | Observation (INO) | payer MEDICARE, OTHER, SELFPAY ==
--- NOTE | ~2023-03-02 | CT_ITS ---
EXAMINATION: CT ABDOMEN AND PELVIS WITH CONTRAST CLINICAL INFORMATION: Rectal pain and constipation COMPARISON: Previous CT of the abdomen and pelvis March 2022 TECHNIQUE: Multidetector volumetric images were obtained from the superior aspect of the liver through the pubic symphysis following administration 85 mL of Omnipaque 350 intravenous contrast. Sagittal and coronal reformatted images were obtained on the technologist's workstation. Oral contrast: Yes This CT examination was performed using dose optimization techniques as appropriate, variously including the following: *Automated exposure control *Adjustment of mA and/or kV according to patient size (this includes techniques or standardized protocols for targeted exams where dose is matched to indication/reason for exam; i.e. extremities or head) *Use of iterative reconstruction technique DLP: 502 mGy-cm FINDINGS: LUNG BASES: Bilateral small lower lobe pulmonary nodules. Largest pulmonary nodule measures 4 mm in the left lower lobe. Pulmonary nodules appear increased from March 2022 CT. Severe coronary artery calcification. LIVER, GALLBLADDER, AND BILIARY TREE: Fatty liver. 2 cm cyst in the medial segment of the left lobe of the liver. Normal gallbladder. No biliary duct dilatation. The gallbladder is unremarkable with no evidence of radiopaque gallstones, gallbladder wall thickening, or obvious pericholecystic inflammatory changes. PANCREAS: Unremarkable. SPLEEN: Unremarkable. ADRENAL GLANDS: Unremarkable. KIDNEYS AND URETERS: Bilateral renal cysts, largest measuring 6 cm in the lower pole of the left kidney. This is similar to previous exam. No imaging follow-up recommended. BLADDER: Unremarkable. GASTROINTESTINAL TRACT: Severe constipation. The colon is slightly dilated questionable for mild obstipation or obstruction. There is wall thickening of the distal colon and stranding of the surrounding fat suggestive of stercoral colitis. No abscess or evidence of perforation. Postsurgical changes to the small bowel. The appendix is not seen. The stomach is not optimally distended. It is difficult to exclude distal thoracic and gastric wall thickening. ABDOMINAL WALL: Diastasis of the rectus muscles and small umbilical hernia containing fat. LYMPH NODES: Normal. VASCULAR: Unremarkable. PELVIC VISCERA: Unremarkable. OSSEOUS STRUCTURES: Unremarkable. CT/CT abdomen pelvis w IV con IMPRESSION: Severe constipation and probable mild obstipation or obstruction. Wall thickening of the distal colon and stranding of the surrounding fat suggestive of stercoral colitis. No evidence of abscess or perforation. Interval increase in bilateral lower lobe pulmonary nodules. Follow-up chest CT recommended. 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 Fleischner guidelines were followed.
--- NOTE | ~2023-03-02 | XR_ITS ---
EXAMINATION: XR ABDOMEN KUB CLINICAL INDICATION: Follow-up constipation COMPARISON: Previous CT of the abdomen and pelvis from 03/02/2023 TECHNIQUE: AP view of the abdomen. FINDINGS: There is decreased stool the colon compared to previous CT scan. There are surgical staple lines in the right lower quadrant. There are are no dilated loops of bowel or free air. New 1 cm density in the right upper quadrant that may represent something the patient has ingested as no stone or calcification is seen on CT. Degenerative changes of the spine and hip joints. XR/XR abdomen 1V IMPRESSION: Decreased stool burden compared to recent CT scan
--- NOTE | 2023-03-02 11:11 | ED_ITS ---
HPI - General Adult General Chief complaint: General Medical Stated complaint: Abd pain per EMS Time Seen by Provider: 03/02/23 11:11 Source: patient and EMS Mode of arrival: EMS Limitations: no limitations History of Present Illness HPI narrative: Patient is an 82-year-old male with history of abdominal pain, GERD, hemorrhoids presenting with rectal pain since this morning and constipation for one week. He denies any rectal bleeding or dark, tarry stools. Patient reports he has not had a bowel movement in 7 days but has been passing gas. He also reports the urge to urinate but feels he is currently unable. He states he was able to urinate earlier this morning. He denies any fever or abdominal pain, nausea or vomiting. He denies any back or flank pain. He denies any chest pain or dyspnea. He reports using a rectal suppository this morning but was still unable to have a BM. Has not tried any other medications. Related Data Home Medications Medication Instructions Recorded Confirmed amlodipine 5 mg tablet 5 mg PO DAILY 01/12/21 09/05/22 atorvastatin 40 mg tablet 40 mg PO DAILY 01/12/21 09/05/22 docusate sodium 100 mg capsule 100 mg PO BID 01/12/21 09/05/22 ferrous sulfate 324 mg (65 mg 324 mg PO DAILY 01/12/21 09/05/22 iron) tablet,delayed release furosemide 20 mg tablet 20 mg PO DAILY 01/12/21 09/05/22 lisinopril 20 mg tablet 20 mg PO BID 01/12/21 09/05/22 albuterol sulfate 90 mcg/actuation 2 puff inhalation Q4-6H PRN 05/13/21 09/05/22 aerosol inhaler (ProAir HFA) Shortness Of Breath Or Wheezing aspirin 81 mg tablet,delayed 81 mg PO DAILY 05/13/21 09/05/22 release ketoconazole 2 % shampoo 1 appl topical DAILY 04/18/22 09/05/22 metoprolol succinate 25 mg 1 tab PO DAILY 05/03/22 09/05/22 tablet,extended release 24 hr Previous Rx's Medication Instructions Recorded polyethylene glycol 3350 17 238 g PO DAILY colo prep 1 day 02/15/21 gram/dose oral powder (Miralax) #238 grams hydrocortisone acetate 25 mg 25 mg TN BEDTIME #12 ea 05/18/22 rectal suppository (Anusol-HC) polyethylene glycol 3350 17 17 g PO DAILY #238 grams 05/18/22 gram/dose oral powder (Miralax) psyllium husk (with sugar) 3.4 1 tbsp PO DAILY #30 ea 05/18/22 gram oral powder packet (Metamucil (with sugar)) rifaximin 550 mg tablet 550 mg PO TID 2 weeks #42 tabs 06/02/22 pantoprazole 40 mg tablet,delayed 40 mg PO BID #60 tabs 10/02/22 release hyoscyamine sulfate 0.125 mg tablet 0.125 mg PO QID #20 tabs 10/20/22 polyethylene glycol 3350 17 17 g PO DAILY #238 grams 10/20/22 gram/dose oral powder (Miralax) simethicone 180 mg capsule (Gas 180 mg PO TID PRN abdominal 10/20/22 Relief (simethicone)) distention #20 caps Allergies Allergy/AdvReac Type Severity Reaction Status Date / Time No Known Allergies Allergy Verified 03/02/23 11:19 Review of Systems 2 Review of Systems: As per HPI Yes all other systems are reviewed and are negative Constitutional: Constitutional: Reports as per HPI PMFSH Past Medical History Medical History Anemia Asthma Bleeding hemorrhoids COVID-19 vaccine series completed Diabetes Elevated cholesterol GERD with esophagitis History of cardioversion HTN (hypertension) Hx of atrial flutter Low back pain Rectal bleeding Tubular adenoma of colon Surgical History H/O colonoscopy History of esophagogastroduodenoscopy (EGD) Hx of appendectomy Hx of cardiac catheterization Hx of eye surgery Hx of resection of small bowel Family History Family History Mother Heart attack Cancer Social History Social History Household Members: None Housing: Apartment Are you a primary manager medicare marketing to a significant other at home: No Do you presently have visiting nurse or other home services: No Patient Tobacco Use Status: Never used Tobacco Second Hand Smoke Exposure: No Advance Directives: No Advance Directives Information Provided: Yes service: No Current occupational status: retired Physical Exam ED Vital Signs: Vital Signs - 24 hr 03/02/23 11:17 03/02/23 15:57 03/02/23 18:32 Temperature 97.7 F Pulse Rate 66 72 62 Respiratory Rate 18 16 14 Blood Pressure 109/64 145/50 H 141/69 H Pulse Oximetry 97 96 96 Oxygen Delivery Method Room Air Room Air Room Air BMI result Body Mass Index 24.2 Const General: cooperative, healthy appearing and no acute distress Orientation/consciousness: oriented to person, oriented to place, oriented to time and patient oriented x3 Limitations: no limitations HENMT Head: Yes normocephalic and Yes atraumatic Ears: external ears normal General nose exam: Normal external nose present Face and sinus: Yes face symmetric Mouth: oropharynx normal and moist mucous membranes Throat: Yes uvula midline Eyes Pupils: Equal, round and reactive pupils present Neck Neck: Yes normal visual inspection and Yes supple Resp Effort & Inspection: normal respiratory effort and able to speak in complete sentences Auscultation: clear to auscultation bilaterally Cardio Rate: regular rate Rhythm: regular rhythm Heart sounds: S1 normal heart sound present and S2 normal heart sound present GI Other: Chaperoned by VY Camilo. Guaiac negative. Inspection: Yes normal to inspection, No distended, No visible herniation and No visible pulsation Palpation (GI): Soft to palpation, nontender, no guarding, no hernias, no masses and No Rebound tenderness present Auscultation: normoactive bowel sounds Rectal Exam - Male: Yes visual inspection normal, Yes normal sphincter tone, Yes Abnormal stool present (small amount of liquid stool), Yes heme negative stool and No fecal impaction General: Yes no CVA tenderness Back/Spine/Pelvis Back: no CVA tenderness Skin General skin exam: elasticity normal and turgor normal Neuro General: oriented to person, oriented to place, oriented to time, patient oriented x3, moves all extremities, no focal motor deficits and CN's II-XI intact bilaterally Cranial nerves: Yes Equal, round and reactive pupils present Cognition (Neuro): normal cognition Extrem General: Yes full ROM, Yes no pedal edema and Yes no calf tenderness Psych Mental Status: mental status grossly normal Affect: normal affect Thought process: Normal thought process present Course Reevaluation(s) Reevaluation #1: Labs unchanged from baseline, urine negative for infection, awaiting results of CT scan. Per RN patient has had bowel movements with both liquid and formed st ool. Time: 14:58 Reevaluation #2: Patient signed out to LIZZIE Villanueva pending results of CT. Time: 16:25 Reevaluation #3: Spoke to General surgery about this case and reviewed imaging results. Dr. Mcallister recommends, mineral oil enemas no PRAVIN, sips of clear will be seen by gen surgery tomorrow. If patient begins to have nausea and vomiting NG tube should be placed per General surgery. Time: 19:24 Medications Administered Discontinued Medications Generic Name Dose Route Start Last Admin Trade Name Freq PRN Reason Stop Dose Admin Metronidazole 500 mg in 100 mls @ 100 mls/hr 03/02/23 16:48 03/02/23 18:42 Flagyl IV 03/02/23 17:47 Infused ONCE ONE Infusion Levofloxacin 750 mg in 150 mls @ 100 mls/hr 03/02/23 16:48 03/02/23 18:42 Levaquin IV 03/02/23 18:17 100 mls/hr ONCE ONE Administration Iohexol 85 ml 03/02/23 13:58 03/02/23 13:59 Iohexol 350 Mg/Ml 100 Ml Infus..Btl IV 03/02/23 13:59 85 ml ONCE ONE Administration Medical Decision Making Medical Decision Making [facility] Narrative: Patient is an 82-year-old male with history of abdominal pain, GERD, hemorrhoids presenting with rectal pain since this morning and constipation for one week. On exam patient appears uncomfortable, unable to sit on stretcher, laying on his side, VS WNL, afebrile, nontoxic appearing, abdomen soft and nontender, no guarding or rebound tenderness, liquid stool noted on rectal exam, guaiac negative. Concern for impaction, obstruction, malignancy/mass, infection/abscess, diverticulitis. Less likely GI bleed, AAA rupture, aortic dissection, strangulated hernia, mesenteric ischemia Plan: labs, urine, CT abdomen/pelvis, reassess Please refer to course for remaining clinical decision making. Differential Diagnosis Differential Diagnoses: The differential diagnosis associated with the presentation includes As above. Lab Data [facility] Lab Attestation statement: I reviewed the patient's lab results. 03/02/23 12:17 03/02/23 12:17 Labs: Lab Results 03/02/23 03/02/23 03/02/23 Range/Units 12:17 12:17 13:41 WBC 12.1 H (4.8-10.8) X10*3/uL RBC 4.74 (4.60-5.80) X10*6/uL Hgb 13.6 L (14.0-18.0) g/dl Hct 43.0 (42.0-52.0) % MCV 90.7 (80.0-98.0) fL MCH 28.7 (27.0-33.0) pg MCHC 31.6 (31.0-36.0) g/dl RDW 13.2 (11.0-16.0) % Plt Count 197 (160-400) X10*3/uL MPV 10.5 (9.4-12.4) fL Immature Gran % (Auto) 0.3 (0.0-0.4) % Neut % (Auto) 88.5 H (45-73) % Lymph % (Auto) 5.6 L (20-40) % [place] % (Auto) 4.4 (2-11) % Eos % (Auto) 0.9 (0-4) % Baso % (Auto) 0.3 (0-2) % Lymph # (Auto) 0.7 L (1.2-4.9) X10*3/uL [place] # (Auto) 0.5 (0.1-1.2) X10*3/uL Eos # (Auto) 0.1 (0.0-0.4) X10*3/uL Baso # (Auto) 0.0 (0.0-0.2) X10*3/uL Abs Immat Gran (auto) 0.04 H (0.00-0.03) X10*3/uL Absolute Neuts (auto) 10.7 H (2.0-8.3) x10*3/uL Absolute Nucleated RBC 0.000 (0.0-0.012) X10*3/uL Nucleated RBC % (auto) 0.0 (0.0-0.2) /100WBC Sodium 141 (135-145) mmol/L Potassium 4.1 (3.3-5.1) mmol/L Chloride 102 (96-108) mmol/L Carbon Dioxide 33 H (22-29) mmol/L Anion Gap 10 L (12-20) BUN 11 (9-16) mg/dL Creatinine 0.76 (0.5-1.4) mg/dL Estim Creat Clear Calc 76.2 Estimated GFR > 60 Random Glucose 121 H (60-115) mg/dL Calcium 8.9 (8.4-10.2) mg/dL Total Bilirubin 1.5 H (0.0-1.0) mg/dL AST 28 (5-37) U/L ALT 37 (0-40) U/L Alkaline Phosphatase 68 (39-117) U/L Total Protein 6.3 L (6.5-8.0) g/dL Albumin 3.9 (3.5-5.0) g/dL Urine Color Yellow Urine Appearance Clear Urine pH 7.5 (5.0-9.0) Ur Specific [place] 1.010 (1.005-1.025) Urine Protein Negative (Neg-Trace) mg/dL Urine Glucose (UA) Negative (Negative) mg/dL Urine Ketones Negative (Negative) mg/dL Urine Blood Negative (Negative) Urine Nitrite Negative (Negative) Ur Leukocyte Esterase Negative (Negative) Independent Interpretation I performed an independent interpretation of an: CT Scan Interpretation: I independently reviewed the CT scan and agree with the radiologist's interpretation. Radiology Impression Discussion of test interpretation with radiology: I have reviewed the radiologist's reading. External Record Review External record reviewed: Inpatient record, Office record and Outpatient record Critical Care Time Critical Care Time Critical Care Time: Yes Total Critical Care Time: 35 Attestation: I attest to this time spent taking care of the patient, obtaining history, physical, reviewing labs, imaging, speaking to my attending, speaking to specia list. Discharge Plan Discharge Clinical Impression: Constipation, Abdominal pain Patient Disposition: Still a Patient Instructions: Constipation (DC) Additional Instructions: You were evaluated in the emergency department today for rectal pain and constipation. Your evaluation did not show evidence of medical conditions requiring emergent intervention at this time. Please schedule appointment with your primary care provider this week. 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 Return to the emergency department if you experience worsening or uncontrolled pain, fevers 100.4? F or greater, recurrent vomiting, inability to tolerate food or fluids by mouth, bloody stools or vomit, black or tarry stools, or any other concerning symptoms. Prescriptions: No Action polyethylene glycol 3350 [Miralax] 17 gram/dose powder 238 g PO DAILY 1 Days Qty: 238 0RF aspirin [Aspir-81] 81 mg Tablet,Delayed Release (Dr/Ec) 81 mg PO DAILY albuterol sulfate [ProAir HFA] 90 mcg/actuation Hfa Aerosol Inhaler 2 puff INHALATION Q4-6H PRN (Reason: Shortness Of Breath Or Wheezing) metoprolol succinate 25 mg tablet extended release 24 hr 1 tab PO DAILY hydrocortisone acetate [Anusol-HC] 25 mg suppository 25 mg TN BEDTIME Qty: 12 0RF polyethylene glycol 3350 [Miralax] 17 gram/dose powder 17 g PO DAILY Qty: 238 3RF Metamucil (with sugar) 3.4 gram powder in packet 1 tbsp PO DAILY Qty: 30 3RF hyoscyamine sulfate 0.125 mg tablet 0.125 mg PO QID Qty: 20 0RF polyethylene glycol 3350 [Miralax] 17 gram/dose powder 17 g PO DAILY Qty: 238 0RF simethicone [Gas Relief (simethicone)] 180 mg capsule 180 mg PO TID PRN (Reason: abdominal distention) Qty: 20 0RF amlodipine 5 mg tablet 5 mg PO DAILY ferrous sulfate 324 mg (65 mg iron) tablet,delayed release (DR/EC) 324 mg PO DAILY lisinopril 20 mg tablet 20 mg PO BID furosemide 20 mg tablet 20 mg PO DAILY atorvastatin 40 mg tablet 40 mg PO DAILY docusate sodium 100 mg capsule 100 mg PO BID ketoconazole 2 % shampoo 1 appl topical DAILY rifaximin 550 mg tablet 550 mg PO TID 14 Days Qty: 42 0RF pantoprazole 40 mg tablet,delayed release (DR/EC) 40 mg PO BID Qty: 60 2RF
[2023-03-02 11:17] VITALS: BP 109/64; BP 138/59; PULSE 66; PULSE 69; RESP 18; TEMP 36.5; O2SAT 97; O2SAT 98; BMI 24.2
[2023-03-02 12:20] LABS: MANUAL DIFF FLAG NO
[2023-03-02 12:22] LABS: Basophils Percent Auto 0.3 % (0-2); Eosinophils Absolute Auto 0.1 X10*3/uL (0.0-0.4); Eosinophils Percent Auto 0.9 % (0-4); Hemoglobin 13.6 g/dl (14.0-18.0); Imm Gran Abs Auto 0.04 X10*3/uL (0.00-0.03); Imm Gran Pct Auto 0.3 % (0.0-0.4); Lymphocytes Absolute Auto 0.7 X10*3/uL (1.2-4.9); Lymphocytes Percent Auto 5.6 % (20-40); Mean Corpuscular HGB Conc 31.6 g/dl (31.0-36.0); Mean Corpuscular Hemoglobin 28.7 pg (27.0-33.0); Mean Corpuscular Volume 90.7 fL (80.0-98.0); Mean Platelet Volume 10.5 fL (9.4-12.4); Monocytes Absolute Auto 0.5 X10*3/uL (0.1-1.2); Monocytes Percent Auto 4.4 % (2-11); Neutrophils Absolute Auto 10.7 x10*3/uL (2.0-8.3); Neutrophils Percent Auto 88.5 % (45-73); Platelet Count 197 X10*3/uL (160-400); Red Blood Count 4.74 X10*6/uL (4.60-5.80); Red Cell Distribution Width 13.2 % (11.0-16.0); White Blood Count 12.1 X10*3/uL (4.8-10.8)
[2023-03-02 12:36] LABS: Alanine Aminotransferase 37 U/L (0-40); Albumin Level 3.9 g/dL (3.5-5.0); Alkaline Phosphatase 68 U/L (39-117); Anion Gap 10 (12-20); Aspartate Amino Transferase 28 U/L (5-37); Bilirubin Total 1.5 mg/dL (0.0-1.0); Blood Urea Nitrogen 11 mg/dL (9-16); Calcium 8.9 mg/dL (8.4-10.2); Carbon Dioxide 33 mmol/L (22-29); Chloride 102 mmol/L (96-108); Creatinine Clr Calc Pharmacy 76.2; Estimated Glomerular Filt Rate > 60; Glucose Random 121 mg/dL (60-115); Potassium 4.1 mmol/L (3.3-5.1); Sodium 141 mmol/L (135-145); Total Protein 6.3 g/dL (6.5-8.0)
--- NOTE | 2023-03-02 13:51 | PC.NURSE ---
incontinence care provided. new bed linen and pad in place.
[2023-03-02 13:58] LABS: Appearance Urine Clear; Color Urine Yellow; Glucose Urine UA Negative (Negative); Leukocyte Esterase Urine Negative (Negative); Nitrite Urine Negative (Negative); PH 7.5 (5.0-9.0); Urine Blood Negative (Negative); Urine Ketones Negative (Negative); Urine Protein Negative (Neg-Trace)
[2023-03-02] MEDS: iohexoL 350 MG/ML 100 ML INFUS..BTL 85 ML IV (13:59)
[2023-03-02 15:57] VITALS: BP 145/50; PULSE 72; RESP 16; O2SAT 96
[2023-03-02] MEDS: metroNIDAZOLE/NS 500 MG/100 ML PIGGYBACK 100 MG IV (17:36)
[2023-03-02 18:32] VITALS: BP 141/69; PULSE 62; RESP 14; O2SAT 96
[2023-03-02] MEDS: levoFLOXacin/D5W 750 MG/150 ML PIGGYBACK 100 MG IV (18:42)
--- NOTE | 2023-03-02 20:00 | P.HPHOSP_ITS ---
History of Present Illness Date of Service: 03/02/23 Chief Complaint: Rectal pain This is a 82-year-old male with pertinent history of essential hypertension, mixed hyperlipidemia, gastroesophageal reflux disease who presents to the emergency department for evaluation of constipation and rectal pain. Patient states this a.m., he could not have a bowel movement. He tried a suppository but no relief. Patient had significant rectal discomfort but could not move his bowels. His last normal bowel movement was 1 week ago. He denies any fever, chills, nausea, vomiting, blood in stool, shortness of breath, changes in urinary habits. In the emergency department, imaging with severe constipation and stercoral colitis. Review of Systems Constitutional: Constitutional: Reports fatigue Cardiovascular: Cardiovascular: Reports no additional cardiovascular complaints Respiratory: Respiratory: Reports no additional respiratory complaints Gastrointestinal: Gastrointestinal: Reports constipation Genitourinary: Genitourinary: Reports no additional male genitourinary complaints Endocrine: Endocrine: Reports fatigue [facility] Medical History Anemia Asthma Bleeding hemorrhoids COVID-19 vaccine series completed Diabetes Elevated cholesterol GERD with esophagitis History of cardioversion HTN (hypertension) Hx of atrial flutter Low back pain Rectal bleeding Tubular adenoma of colon Family History Mother Heart attack Cancer Surgical History H/O colonoscopy History of esophagogastroduodenoscopy (EGD) Hx of appendectomy Hx of cardiac catheterization Hx of eye surgery Hx of resection of small bowel Social History Household Members: None Housing: Apartment Are you a primary medical care administrator to a significant other at home: No Do you presently have visiting nurse or other home services: No Patient Tobacco Use Status: Never used Tobacco Second Hand Smoke Exposure: No Advance Directives: No Advance Directives Information Provided: Yes service: No Current occupational status: retired Meds Allergies Allergy/AdvReac Type Severity Reaction Status Date / Time No Known Allergies Allergy Verified 03/02/23 11:19 Active Medications: Current Medications Pharmacy Consult (Consult Rx Perform Med Rec) 1 each MISCELLANE ONCE PRN PRN Reason: Consult order Home Medications Medication Instructions Recorded Confirmed Last Taken Type amlodipine 5 mg tablet 5 mg PO DAILY 01/12/21 09/05/22 09/07/21 History atorvastatin 40 mg tablet 40 mg PO DAILY 01/12/21 09/05/22 Unknown History docusate sodium 100 mg capsule 100 mg PO BID 01/12/21 09/05/22 Unknown History ferrous sulfate 324 mg (65 mg 324 mg PO DAILY 01/12/21 09/05/22 05/17/22 History iron) tablet,delayed release furosemide 20 mg tablet 20 mg PO DAILY 01/12/21 09/05/22 Unknown History lisinopril 20 mg tablet 20 mg PO BID 01/12/21 09/05/22 Unknown History albuterol sulfate 90 mcg/actuation 2 puff inhalation Q4-6H PRN 05/13/21 09/05/22 Unknown History aerosol inhaler (ProAir HFA) Shortness Of Breath Or Wheezing aspirin 81 mg tablet,delayed 81 mg PO DAILY 05/13/21 09/05/22 09/06/21 History release ketoconazole 2 % shampoo 1 appl topical DAILY 04/18/22 09/05/22 Unknown History metoprolol succinate 25 mg 1 tab PO DAILY 05/03/22 09/05/22 Unknown History tablet,extended release 24 hr Physical Exam Vital Signs and Narrative: Vital Signs: Last Vital Signs Temp 97.7 F 03/02/23 11:17 Pulse 62 03/02/23 18:32 Resp 14 03/02/23 18:32 BP 141/69 H 03/02/23 18:32 Pulse Ox 96 03/02/23 18:32 O2 Del Method Room Air 03/02/23 18:32 BMI result Body Mass Index 24.2 Elderly male lying in bed in no distress Neck supple, no JVD Regular rate and rhythm, S1-S2 heard Regular breath sounds bilaterally, no wheezing or crackles appreciated Abdomen soft nontender, no guarding, no rigidity Patient is awake, alert and oriented to self, place, time and person ; no focal motor deficit Psych: Normal mood No pedal edema Results Labs 03/02/23 12:17 03/02/23 12:17 Labs: Laboratory Results - last 24 hr 03/02/23 03/02/23 03/02/23 12:17 12:17 13:41 MCV 90.7 MCH 28.7 MCHC 31.6 RDW 13.2 Plt Count 197 MPV 10.5 Immature Gran % (Auto) 0.3 Neut % (Auto) 88.5 H Lymph % (Auto) 5.6 L [place] % (Auto) 4.4 Eos % (Auto) 0.9 Baso % (Auto) 0.3 Lymph # (Auto) 0.7 L [place] # (Auto) 0.5 Eos # (Auto) 0.1 Baso # (Auto) 0.0 Abs Immat Gran (auto) 0.04 H Absolute Neuts (auto) 10.7 H Absolute Nucleated RBC 0.000 Nucleated RBC % (auto) 0.0 Anion Gap 10 L Estim Creat Clear Calc 76.2 Estimated GFR > 60 Random Glucose 121 H Calcium 8.9 Total Bilirubin 1.5 H AST 28 ALT 37 Alkaline Phosphatase 68 Total Protein 6.3 L Albumin 3.9 Urine Color Yellow Urine Appearance Clear Urine pH 7.5 Ur Specific [place] 1.010 Urine Protein Negative Urine Glucose (UA) Negative Urine Ketones Negative Urine Blood Negative Urine Nitrite Negative Ur Leukocyte Esterase Negative Imaging Radiologist's Impressions: Impressions Abdomen/Pelvis CT 03/02/23 14:09 IMPRESSION: Severe constipation and probable mild obstipation or obstruction. Wall thickening of the distal colon and stranding of the surrounding fat suggestive of stercoral colitis. No evidence of abscess or perforation. Interval increase in bilateral lower lobe pulmonary nodules. Follow-up chest CT recommended. Findings will be communicated by the [place] work flow commercial lender.. Fleischner guidelines were followed. Assessment and Plan (1) Constipation: Status: Acute Plan This is a 82-year-old male with pertinent history of essential hypertension, mixed hyperlipidemia, gastroesophageal reflux disease who presents to the emergency department for evaluation of constipation and rectal pain. #. Constipation with stercoral colitis: Will admit patient for observation. General surgery consulted from the ER, appreciate assistance. Patient being given mineral enema in the ER. Clear liquid diet and advance as tolerated. Will continue empiric IV antibiotics #. Essential hypertension: Continue home antihypertensives #. Mixed hyperlipidemia: On statin Med rec pending DVT prophylaxis: Lovenox Clear liquid diet Full code. Discussed with patient at bedside Time Spent With Patient Time: Total time managing care of this patient today ____ minutes. Quality Stroke Does the patient have a stroke diagnosis?: No VTE Prior VTE?: No VTE Risk Level:: Medical - moderate - high VTE Device Contraindication: Treatment Not Indicated VTE Drug Contraindication: N/A - Med Ordered
[2023-03-02 20:14] VITALS: BP 140/63; PULSE 80; RESP 18; TEMP 36.6; O2SAT 98
--- NOTE | 2023-03-02 20:28 | PHA.MEDREC ---
Pharmacy Consult ? Medication Reconciliation Patient provided list of current medications. Pharmacy has completed the medication reconciliation.
[2023-03-02] MEDS: Enoxaparin Sodium 40 MG/0.4 ML SYRINGE SUBCUT (20:55)
[2023-03-02 22:09] VITALS: BMI 24.3
[2023-03-02] MEDS: 0.9 % Sodium Chloride Flush 3 ML SYRINGE IVFLUSH (22:34)
[2023-03-03] MEDS: metroNIDAZOLE/NS 500 MG/100 ML PIGGYBACK 100 MG IV (00:43)
[2023-03-03 03:44] VITALS: BP 125/60; PULSE 70; RESP 18; TEMP 36.8; O2SAT 97
[2023-03-03 05:30] VITALS: TEMP 37.3
[2023-03-03 06:03] VITALS: BP 150/67; PULSE 72; RESP 16; O2SAT 96
[2023-03-03 06:19] LABS: MANUAL DIFF FLAG NO
[2023-03-03 06:28] LABS: Basophils Percent Auto 0.4 % (0-2); Eosinophils Absolute Auto 0.2 X10*3/uL (0.0-0.4); Eosinophils Percent Auto 1.7 % (0-4); Hematocrit 39.6 % (42.0-52.0); Hemoglobin 12.9 g/dl (14.0-18.0); Imm Gran Abs Auto 0.02 X10*3/uL (0.00-0.03); Imm Gran Pct Auto 0.2 % (0.0-0.4); Lymphocytes Absolute Auto 1.3 X10*3/uL (1.2-4.9); Lymphocytes Percent Auto 14.6 % (20-40); Mean Corpuscular HGB Conc 32.6 g/dl (31.0-36.0); Mean Corpuscular Hemoglobin 29.3 pg (27.0-33.0); Mean Corpuscular Volume 89.8 fL (80.0-98.0); Mean Platelet Volume 10.3 fL (9.4-12.4); Monocytes Percent Auto 10.6 % (2-11); Neutrophils Absolute Auto 6.5 x10*3/uL (2.0-8.3); Neutrophils Percent Auto 72.5 % (45-73); Platelet Count 199 X10*3/uL (160-400); Red Blood Count 4.41 X10*6/uL (4.60-5.80); Red Cell Distribution Width 13.2 % (11.0-16.0)
[2023-03-03 06:39] LABS: Anion Gap 12 (12-20); Blood Urea Nitrogen 11 mg/dL (9-16); Calcium 8.8 mg/dL (8.4-10.2); Carbon Dioxide 29 mmol/L (22-29); Chloride 105 mmol/L (96-108); Creatinine Clr Calc Pharmacy 75.2; Estimated Glomerular Filt Rate > 60; Glucose Random 89 mg/dL (60-115); Potassium 3.6 mmol/L (3.3-5.1); Sodium 142 mmol/L (135-145)
[2023-03-03 07:26] VITALS: BP 144/68; PULSE 77; RESP 18; TEMP 36.6; O2SAT 94
[2023-03-03 07:43] LABS: C Reactive Protein 1.26 mg/dL (< or = 0.50)
--- NOTE | 2023-03-03 09:04 | P.CONGS_ITS ---
History of Present Illness Consult details Consult date: 03/03/23 Narrative: The patient is an 82-year-old gentleman who is admitted to the medical service. The patient states that he has a history of chronic constipation issues and is in the care of Dr. Ritter. Patient states his last bowel movement was 7 days ago. He is passing some gas but bloated and uncomfortable and having difficulty stooling. He is unclear as to whether not he is on a standing bowel regime to address his constipation. He denies pain in his chest, trouble breathing, and localizing neurologic symptoms. Review of Systems Review of Systems: Yes all other systems are reviewed and are negative Constitutional: Constitutional: Reports as per [facility] Past Medical History Medical History Anemia Asthma Bleeding hemorrhoids COVID-19 vaccine series completed Diabetes Elevated cholesterol GERD with esophagitis History of cardioversion HTN (hypertension) Hx of atrial flutter Low back pain Rectal bleeding Tubular adenoma of colon Family History Family History Mother Heart attack Cancer Surgical History Surgical History H/O colonoscopy History of esophagogastroduodenoscopy (EGD) Hx of appendectomy Hx of cardiac catheterization Hx of eye surgery Hx of resection of small bowel Social History Social History Household Members: None Housing: Apartment Are you a primary patient care coordinator to a significant other at home: No Do you presently have visiting nurse or other home services: No Patient Tobacco Use Status: Never used Tobacco Second Hand Smoke Exposure: No Use of substances other than those prescribed or required for medical reasons: No Currently Displaying Signs/Symptoms of Drug Intoxication Withdrawal: No Have you been hit, kicked, punched, or otherwise hurt by someone within the past year? If so, by whom?: No Do you feel safe in your current relationship?: Yes Is there a partner from a previous relationship who is making you feel unsafe now?: No Are you made to feel afraid or neglected: No [employer] Healthcare Practices: [facility] Advance Directives: No Advance Directives Information Provided: Yes Do you have thoughts of harming others: None Do you have a plan to hurt others: No Plan Recently lost weight without trying: No Eating poorly because of decreased appetite: No Nutrition Risks: Difficulty swallowing Poor oral hygiene: No service: No Current occupational status: retired Meds Allergies Allergy/AdvReac Type Severity Reaction Status Date / Time No Known Allergies Allergy Verified 03/02/23 11:19 Active Medications: Current Medications Acetaminophen (Acetaminophen 325 Mg Tablet) 650 mg PO Q6H PRN PRN Reason: Pain, Mild (Pain Scale 1-3) Amlodipine Besylate (Amlodipine Besylate 5 Mg Tablet) 5 mg PO DAILY [facility]; Protocol Atorvastatin Calcium (Atorvastatin Calcium 40 Mg Tablet) 40 mg PO DAILY [facility] Bisacodyl (Bisacodyl 5 Mg Tablet.) 10 mg PO DAILY [facility] Enoxaparin Sodium (Enoxaparin Sodium 40 Mg/0.4 Ml Syringe) 40 mg SUBCUT Q24H [facility] Last Admin: 03/02/23 20:55 Dose: 40 mg Ferrous Sulfate (Ferrous Sulfate 324 Mg Tablet.) 324 mg PO DAILY [facility] Furosemide (Furosemide 20 Mg Tablet) 20 mg PO DAILY [facility]; Protocol Metronidazole (Flagyl) 500 mg in 100 mls @ 100 mls/hr IV Q8H [facility] Last Infusion: 03/03/23 01:45 Dose: Infused Lisinopril (Lisinopril 20 Mg Tablet) 20 mg PO BID [facility]; Protocol Melatonin (Melatonin 3 Mg Tablet) 6 mg PO BEDTIME PRN PRN Reason: Insomnia Metoprolol Tartrate (Metoprolol Tartrate 25 Mg Tablet) 25 mg PO BID [facility]; Protocol Ondansetron HCl (Ondansetron Hcl 4 Mg/2 Ml Vial) 4 mg IVPUSH Q8H PRN PRN Reason: Nausea and Vomiting Pharmacy Consult (Consult Rx Perform Med Rec) 1 each MISCELLANE ONCE PRN PRN Reason: Consult order Senna/Docusate Sodium (Sennosides/Docusate Sodium Tablet) 2 tab PO BID [facility] Sodium Chloride (0.9 % Sodium Chloride Flush 3 Ml Syringe) 3 ml IVFLUSH QSHIFT [facility] Last Admin: 03/02/23 22:34 Dose: 3 ml Home Medications Medication Instructions Recorded Confirmed Last Taken Type amlodipine 5 mg tablet 5 mg PO DAILY 01/12/21 03/02/23 09/07/21 History atorvastatin 40 mg tablet 40 mg PO DAILY 01/12/21 03/02/23 Unknown History docusate sodium 100 mg capsule 100 mg PO BID 01/12/21 03/02/23 Unknown History ferrous sulfate 324 mg (65 mg 324 mg PO DAILY 01/12/21 03/02/23 05/17/22 History iron) tablet,delayed release furosemide 20 mg tablet 20 mg PO DAILY 01/12/21 03/02/23 Unknown History lisinopril 20 mg tablet 20 mg PO BID 01/12/21 03/02/23 Unknown History aspirin 81 mg tablet,delayed 81 mg PO DAILY 05/13/21 03/02/23 09/06/21 History release ketoconazole 2 % shampoo 1 appl topical DAILY 04/18/22 09/05/22 Unknown History metoprolol tartrate 25 mg tablet 25 mg PO BID 03/02/23 03/02/23 Unknown History Physical Exam Vital Signs: Vital Signs: Last Vital Signs Temp 97.9 F 03/03/23 07:26 Pulse 77 03/03/23 07:26 Resp 18 03/03/23 07:26 BP 144/68 H 03/03/23 07:26 Pulse Ox 94 03/03/23 07:26 O2 Del Method Room Air 03/03/23 07:26 BMI result Body Mass Index 24.3 The patient is nontoxic and in surprisingly good spirits His sclerae anicteric He is in no acute respiratory distress His abdomen is soft with no tenderness. Is distended with no peritoneal sign or rigidity. Results Labs 03/03/23 06:09 03/03/23 06:09 Labs: Abnormal lab results 03/02/23 03/02/23 03/03/23 Range/Units 12:17 12:17 06:09 WBC 12.1 H (4.8-10.8) X10*3/uL RBC 4.41 L (4.60-5.80) X10*6/uL Hgb 13.6 L 12.9 L (14.0-18.0) g/dl Hct 39.6 L (42.0-52.0) % Neut % (Auto) 88.5 H (45-73) % Lymph % (Auto) 5.6 L 14.6 L (20-40) % Lymph # (Auto) 0.7 L (1.2-4.9) X10*3/uL Abs Immat Gran (auto) 0.04 H (0.00-0.03) X10*3/uL Absolute Neuts (auto) 10.7 H (2.0-8.3) x10*3/uL Carbon Dioxide 33 H (22-29) mmol/L Anion Gap 10 L (12-20) Random Glucose 121 H (60-115) mg/dL Total Bilirubin 1.5 H (0.0-1.0) mg/dL C-Reactive Protein (< or = 0.50) mg/dL Total Protein 6.3 L (6.5-8.0) g/dL 03/03/23 Range/Units 06:09 WBC (4.8-10.8) X10*3/uL RBC (4.60-5.80) X10*6/uL Hgb (14.0-18.0) g/dl Hct (42.0-52.0) % Neut % (Auto) (45-73) % Lymph % (Auto) (20-40) % Lymph # (Auto) (1.2-4.9) X10*3/uL Abs Immat Gran (auto) (0.00-0.03) X10*3/uL Absolute Neuts (auto) (2.0-8.3) x10*3/uL Carbon Dioxide (22-29) mmol/L Anion Gap (12-20) Random Glucose (60-115) mg/dL Total Bilirubin (0.0-1.0) mg/dL C-Reactive Protein 1.26 H (< or = 0.50) mg/dL Total Protein (6.5-8.0) g/dL Short CBC 03/02/23 03/03/23 Range/Units 12:17 06:09 WBC 12.1 H 9.0 (4.8-10.8) X10*3/uL Hgb 13.6 L 12.9 L (14.0-18.0) g/dl Hct 43.0 39.6 L (42.0-52.0) % Plt Count 197 199 (160-400) X10*3/uL BMP 03/02/23 03/03/23 12:17 06:09 Sodium 141 142 Potassium 4.1 3.6 Chloride 102 105 Carbon Dioxide 33 H 29 BUN 11 11 Creatinine 0.76 0.77 Calcium 8.9 8.8 Liver Function 03/02/23 Range/Units 12:17 Total Bilirubin 1.5 H (0.0-1.0) mg/dL AST 28 (5-37) U/L ALT 37 (0-40) U/L Alkaline Phosphatase 68 (39-117) U/L Albumin 3.9 (3.5-5.0) g/dL Urine 03/02/23 Range/Units 13:41 Urine Color Yellow Urine Appearance Clear Urine pH 7.5 (5.0-9.0) Ur Specific [place] 1.010 (1.005-1.025) Urine Protein Negative (Neg-Trace) mg/dL Urine Glucose (UA) Negative (Negative) mg/dL All other labs normal. Imaging Abdomen CT scan report/results: report reviewed and image reviewed CT scan - pelvis: report reviewed and image reviewed Assessment and Plan (1) Constipation: Status: Acute (2) Abdominal pain: Status: Acute (3) Malnutrition: Status: Acute Plan Maintain NPO, hold on nasogastric tube unless vomiting Mineral oil retention enemas and bowel regime required. Manual disimpaction carries risks of incontinence due to sphincter injury, anorectal trauma and the should try to be avoided unless medical management fails. Begin oral bowel regime as well. Would consult GI given the patient's ongoing relationship for chronic constipation with Gastroenterology. Time Spent With Patient Time: Total time managing care of this patient today ____ minutes. Procedures Date of Service Date of Service: 03/03/23
--- NOTE | 2023-03-03 09:39 | P.PNIM_ITS ---
Subjective Subjective Date of Service: 03/03/23 Interval History: C/o constipation, abd fullness but not really painful no fever/chills Review of Systems Review of Systems: Yes all other systems are reviewed and are negative Physical Exam Vital Signs: Vital Signs: Last Vital Signs Temp 97.9 F 03/03/23 07:26 Pulse 77 03/03/23 07:26 Resp 18 03/03/23 07:26 BP 144/68 H 03/03/23 07:26 Pulse Ox 94 03/03/23 07:26 O2 Del Method Room Air 03/03/23 07:26 BMI result Body Mass Index 24.3 Gen: in no acute distress HEENT: sclera anicteric, moist mucus membranes Neck: supple Lungs: clear to auscultation bilaterally Heart: regular rate and rhythm, no murmurs Abd: soft, non-tender, non-distended Ext: no edema Skin: warm/well-perfused Neuro: alert and oriented x3, no focal findings Psych: appropriate affect Objective Data Active Medications Acetaminophen (Acetaminophen 325 Mg Tablet) 650 mg PO Q6H PRN PRN Reason: Pain, Mild (Pain Scale 1-3) Amlodipine Besylate (Amlodipine Besylate 5 Mg Tablet) 5 mg PO DAILY [facility]; Protocol Atorvastatin Calcium (Atorvastatin Calcium 40 Mg Tablet) 40 mg PO DAILY [facility] Bisacodyl (Bisacodyl 5 Mg Tablet.) 10 mg PO DAILY [facility] Enoxaparin Sodium (Enoxaparin Sodium 40 Mg/0.4 Ml Syringe) 40 mg SUBCUT Q24H [facility] Last Admin: 03/02/23 20:55 Dose: 40 mg Documented By: ASAEL Ferrous Sulfate (Ferrous Sulfate 324 Mg Tablet.) 324 mg PO DAILY [facility] Furosemide (Furosemide 20 Mg Tablet) 20 mg PO DAILY [facility]; Protocol Metronidazole (Flagyl) 500 mg in 100 mls @ 100 mls/hr IV Q8H [facility] Last Infusion: 03/03/23 01:45 Dose: 0 mls/hr Documented By: SUHA Lisinopril (Lisinopril 20 Mg Tablet) 20 mg PO BID [facility]; Protocol Melatonin (Melatonin 3 Mg Tablet) 6 mg PO BEDTIME PRN PRN Reason: Insomnia Metoprolol Tartrate (Metoprolol Tartrate 25 Mg Tablet) 25 mg PO BID [facility]; Protocol Ondansetron HCl (Ondansetron Hcl 4 Mg/2 Ml Vial) 4 mg IVPUSH Q8H PRN PRN Reason: Nausea and Vomiting Pharmacy Consult (Consult Rx Perform Med Rec) 1 each MISCELLANE ONCE PRN PRN Reason: Consult order Senna/Docusate Sodium (Sennosides/Docusate Sodium Tablet) 2 tab PO BID [facility] Sodium Chloride (0.9 % Sodium Chloride Flush 3 Ml Syringe) 3 ml IVFLUSH QSHIFT [facility] Last Admin: 03/02/23 22:34 Dose: 3 ml Documented By: SUHA Labs 03/03/23 06:09 03/03/23 06:09 Labs: Laboratory Results - last 24 hr 03/02/23 03/02/23 03/02/23 12:17 12:17 13:41 MCV 90.7 MCH 28.7 MCHC 31.6 RDW 13.2 Plt Count 197 MPV 10.5 Immature Gran % (Auto) 0.3 Neut % (Auto) 88.5 H Lymph % (Auto) 5.6 L [place] % (Auto) 4.4 Eos % (Auto) 0.9 Baso % (Auto) 0.3 Lymph # (Auto) 0.7 L [place] # (Auto) 0.5 Eos # (Auto) 0.1 Baso # (Auto) 0.0 Abs Immat Gran (auto) 0.04 H Absolute Neuts (auto) 10.7 H Absolute Nucleated RBC 0.000 Nucleated RBC % (auto) 0.0 Anion Gap 10 L Estim Creat Clear Calc 76.2 Estimated GFR > 60 Random Glucose 121 H Calcium 8.9 Total Bilirubin 1.5 H AST 28 ALT 37 Alkaline Phosphatase 68 C-Reactive Protein Total Protein 6.3 L Albumin 3.9 Urine Color Yellow Urine Appearance Clear Urine pH 7.5 Ur Specific [place] 1.010 Urine Protein Negative Urine Glucose (UA) Negative Urine Ketones Negative Urine Blood Negative Urine Nitrite Negative Ur Leukocyte Esterase Negative 03/03/23 03/03/23 06:09 06:09 MCV 89.8 MCH 29.3 MCHC 32.6 RDW 13.2 Plt Count 199 MPV 10.3 Immature Gran % (Auto) 0.2 Neut % (Auto) 72.5 Lymph % (Auto) 14.6 L [place] % (Auto) 10.6 Eos % (Auto) 1.7 Baso % (Auto) 0.4 Lymph # (Auto) 1.3 [place] # (Auto) 1.0 Eos # (Auto) 0.2 Baso # (Auto) 0.0 Abs Immat Gran (auto) 0.02 Absolute Neuts (auto) 6.5 Absolute Nucleated RBC 0.000 Nucleated RBC % (auto) 0.0 Anion Gap 12 Estim Creat Clear Calc 75.2 Estimated GFR > 60 Random Glucose 89 Calcium 8.8 Total Bilirubin AST ALT Alkaline Phosphatase C-Reactive Protein 1.26 H Total Protein Albumin Urine Color Urine Appearance Urine pH Ur Specific [place] Urine Protein Urine Glucose (UA) Urine Ketones Urine Blood Urine Nitrite Ur Leukocyte Esterase Assessment and Plan (1) Constipation: Status: Acute Plan d#2 82yo M with HTN, HLD, GERD presenting with severe constipation # constipation with stercoral colitis - MiraLax, bisacodyl, senna/docusate - d/c levofloxacin/metronidazole, doubt infectious colitis # HTN - continue lisinopril, amlodipine, metoprolol tartrate, furosemide # HLD - continue atorvastatin # VTE ppx: LMWH # dispo: anticipate eventual home In my clinical judgment, the patient requires continued inpatient ho spitalization for the following reasons: stercoral colitis Time Spent With Patient Time: Total time managing care of this patient today _35___ minutes. Quality Stroke Does the patient have a stroke diagnosis?: No VTE Prior VTE?: No VTE Risk Level:: Medical - moderate - high VTE Device Contraindication: Treatment Not Indicated VTE Drug Contraindication: N/A - Med Ordered
[2023-03-03] MEDS: Metoprolol Tartrate 25 MG TABLET PO ×2 (09:47→20:12)
[2023-03-03] MEDS: bisacodyL 5 MG TABLET.DR 10 MG PO (09:47)
[2023-03-03] MEDS: lisinopriL 20 MG TABLET PO ×2 (09:47→20:12)
[2023-03-03] MEDS: Atorvastatin Calcium 40 MG TABLET PO (09:48)
[2023-03-03] MEDS: amLODIPine Besylate 5 MG TABLET PO (09:48)
[2023-03-03] MEDS: Sennosides/Docusate Sodium TABLET 2 TAB PO (09:48)
[2023-03-03] MEDS: Ferrous Sulfate 324 MG TABLET.DR PO (09:48)
[2023-03-03] MEDS: Furosemide 20 MG TABLET PO (09:49)
[2023-03-03] MEDS: 0.9 % Sodium Chloride Flush 3 ML SYRINGE IVFLUSH ×2 (09:51→23:50)
[2023-03-03] MEDS: PEG 3350/Na Sulf,Bicarb,Cl/KCL 4,000 ML SOLN.RECON 4000 ML PO (11:50)
[2023-03-03] MEDS: Mineral OiL enema 133 ML ENEMA PR (11:50)
--- NOTE | 2023-03-03 12:40 | MHC.CM.PN ---
PT REPORTS HE LIVES ALONE AND IS INDEPENDENT WITH CARE HE DENIES HAVING HOME SERVICES HE USES A CANE AND HAS A NEBULIZER ALTHOUGH HE DENIES USING IT RECENTLY PT DOES NOT HAVE A HCP, HE IS UNSURE ABOUT DOING ONE AT THIS TIME BUT IS AWARE CM CAN ASSIST PT IS COVID VAX X 4 PCP: [facility] NOTICE DELIVERED DCP: HOME NO SERVICES FRIEND TO TRANSPORT
[2023-03-03 15:55] VITALS: BP 147/70; PULSE 65; RESP 14; TEMP 36.4; O2SAT 94
[2023-03-03 19:32] VITALS: BP 139/67; PULSE 67; RESP 14; TEMP 36.1; O2SAT 95
[2023-03-03] MEDS: Enoxaparin Sodium 40 MG/0.4 ML SYRINGE SUBCUT (20:13)
--- NOTE | 2023-03-03 20:38 | PC.NURSE ---
Pt reported several bowel movements this afternoon, seven in total today. Per MD, pt discontinued drinking golytely prep and HS senna/colace was held (nursing judgment.) Pt reports no pain, is comfortable and tolerating clear liquids.
[2023-03-04 02:34] VITALS: BP 124/58; PULSE 62; RESP 18; TEMP 36.8; O2SAT 94
[2023-03-04 06:27] LABS: Anion Gap 11 (12-20); Blood Urea Nitrogen 9 mg/dL (9-16); Calcium 8.6 mg/dL (8.4-10.2); Carbon Dioxide 28 mmol/L (22-29); Chloride 107 mmol/L (96-108); Creatinine Clr Calc Pharmacy 83.9; Estimated Glomerular Filt Rate > 60; Glucose Random 98 mg/dL (60-115); Potassium 3.2 mmol/L (3.3-5.1); Sodium 143 mmol/L (135-145)
[2023-03-04] MEDS: Metoprolol Tartrate 25 MG TABLET PO (07:44)
[2023-03-04] MEDS: Ferrous Sulfate 324 MG TABLET.DR PO (07:44)
[2023-03-04] MEDS: Potassium Chloride ER 20 MEQ TAB.ER.PRT 40 MEQ PO (07:45)
[2023-03-04] MEDS: Atorvastatin Calcium 40 MG TABLET PO (07:45)
[2023-03-04] MEDS: amLODIPine Besylate 5 MG TABLET PO (07:45)
[2023-03-04] MEDS: lisinopriL 20 MG TABLET PO (07:45)
[2023-03-04] MEDS: Sennosides/Docusate Sodium TABLET 2 TAB PO (07:45)
[2023-03-04] MEDS: Furosemide 20 MG TABLET PO (07:45)
[2023-03-04] MEDS: 0.9 % Sodium Chloride Flush 3 ML SYRINGE IVFLUSH (07:46)
[2023-03-04 07:48] VITALS: BP 124/67; PULSE 63; RESP 18; TEMP 36.5; O2SAT 97
--- NOTE | 2023-03-04 08:31 | PM.PNGS ---
Subjective Subjective Date of Service: 03/04/23 Patient reports: no new complaints, feels better, flatus and bowel movement Interval history: The patient reports interval improvement since yesterday and continues to deny any abdominal pain. He received some enemas with good results. He otherwise denies new complaints such as localizing neurologic symptoms, chest pain, difficulty breathing or shortness of breath. Patient notes that this constipation issue has been a recurring problem for years and wants to follow-up with Dr. Ritter. He believes he has an appointment for tomorrow. Physical Exam Vital Signs: Vital Signs: Last Vital Signs Temp 97.7 F 03/04/23 07:48 Pulse 63 03/04/23 07:48 Resp 18 03/04/23 07:48 BP 124/67 03/04/23 07:48 Pulse Ox 97 03/04/23 07:48 O2 Del Method Room Air 03/04/23 07:48 BMI result Body Mass Index 24.3 On exam, the patient is in good spirits and is nontoxic He is in no acute respiratory distress His abdomen is soft and nontender he is less distended than yesterday and no peritoneal sign is present Objective Data Active Medications Acetaminophen (Acetaminophen 325 Mg Tablet) 650 mg PO Q6H PRN PRN Reason: Pain, Mild (Pain Scale 1-3) Amlodipine Besylate (Amlodipine Besylate 5 Mg Tablet) 5 mg PO DAILY [facility]; Protocol Last Admin: 03/04/23 07:45 Dose: 5 mg Documented By: LATOYA Atorvastatin Calcium (Atorvastatin Calcium 40 Mg Tablet) 40 mg PO DAILY [facility] Last Admin: 03/04/23 07:45 Dose: 40 mg Documented By: LATOYA Enoxaparin Sodium (Enoxaparin Sodium 40 Mg/0.4 Ml Syringe) 40 mg SUBCUT Q24H [facility] Last Admin: 03/03/23 20:13 Dose: 40 mg Documented By: EJ Ferrous Sulfate (Ferrous Sulfate 324 Mg Tablet.) 324 mg PO DAILY [facility] Last Admin: 03/04/23 07:44 Dose: 324 mg Documented By: LATOYA Furosemide (Furosemide 20 Mg Tablet) 20 mg PO DAILY [facility]; Protocol Last Admin: 03/04/23 07:45 Dose: 20 mg Documented By: LATOYA Lisinopril (Lisinopril 20 Mg Tablet) 20 mg PO BID [facility]; Protocol Last Admin: 03/04/23 07:45 Dose: 20 mg Documented By: LATOYA Melatonin (Melatonin 3 Mg Tablet) 6 mg PO BEDTIME PRN PRN Reason: Insomnia Metoprolol Tartrate (Metoprolol Tartrate 25 Mg Tablet) 25 mg PO BID [facility]; Protocol Last Admin: 03/04/23 07:44 Dose: 25 mg Documented By: LATOYA Ondansetron HCl (Ondansetron Hcl 4 Mg/2 Ml Vial) 4 mg IVPUSH Q8H PRN PRN Reason: Nausea and Vomiting Pharmacy Consult (Consult Rx Perform Med Rec) 1 each MISCELLANE ONCE PRN PRN Reason: Consult order Senna/Docusate Sodium (Sennosides/Docusate Sodium Tablet) 2 tab PO BID [facility] Last Admin: 03/04/23 07:45 Dose: 2 tab Documented By: LATOYA Sodium Chloride (0.9 % Sodium Chloride Flush 3 Ml Syringe) 3 ml IVFLUSH QSHIFT [facility] Last Admin: 03/04/23 07:46 Dose: 3 ml Documented By: LATOYA Labs 03/03/23 06:09 03/04/23 05:33 Labs: Laboratory Results - last 24 hr 03/04/23 05:33 Anion Gap 11 L Estim Creat Clear Calc 83.9 Estimated GFR > 60 Random Glucose 98 Calcium 8.6 Procedures Date of Service Date of Service: 03/04/23 Progress Note: A&P Assessment and plan (1) Constipation: Status: Acute (2) Malnutrition: Status: Acute Plan Patient is demonstrated interval improvement. No acute surgical pathology or intervention required Will sign off. Please have patient follow up with GI since he needs a bowel regime to prevent this from occurring again. I had a long discussion with the patient reminding him the prevention and compliance with a bowel regime well prevent readmission for this problem. His questions seemed to be satisfactorily answered. Time Spent With Patient Time: Total time managing care of this patient today ____ minutes. Quality Stroke Does the patient have a stroke diagnosis?: No VTE Prior VTE?: No VTE Risk Level:: Medical - moderate - high VTE Device Contraindication: Treatment Not Indicated VTE Drug Contraindication: N/A - Med Ordered
--- NOTE | 2023-03-04 11:34 | P.DS_ITS ---
DS: Providers Provider Date of Service: 03/04/23 Date of admission: 03/02/23 19:56 Date of discharge: 03/04/23 Primary care physician: Radha Aj MD Consults: 03/02/23 19:22 Consult to General Surgery Stat Consulting Provider: Wesley Mcallister Reason for consultation: abd pain DS: Diagnosis Discharge Diagnosis (1) Constipation: Status: Acute (2) Stercoral colitis: Status: Acute DS: Summary Hospital Course Hospital Course: from admit H+P by hospitalist Charla Hassan 03/02/23: This is a 82-year-old male with pertinent history of essential hypertension, mixed hyperlipidemia, gastroesophageal reflux disease who presents to the emergency department for evaluation of constipation and rectal pain.? Patient states this a.m., he could not have a bowel movement.? He tried a suppository but no relief.? Patient had significant rectal discomfort but could not move his bowels.? His last normal bowel movement was 1 week ago.? He denies any fever, chills, nausea, vomiting, blood in stool, shortness of breath, changes in urinary habits. In the emergency department, imaging with severe constipation and stercoral colitis. 82yo M with HTN, HLD, GERD presenting with severe constipation with stercoral colitis. He was admitted to the medical-surgical unit and treated with mineral oil enemas, GoLytely, bisacodyl, and senna/docusate with good effect. He was discharged on a regimen of standing senna/docusate with prn MiraLax and prn lactulose and will follow up with his underwriting technician Dr Ritter as scheduled on 03/05/23. Time Spent with Patient Time attestation: Total time managing care of this patient today 25___ minutes. Discharge coordination time: Less than 30 minutes Quality: Safe Use of Opioids Does Pt have an Active Cancer Diagnosis on the Problem List?: No Quality: Stroke Does the patient have a stroke diagnosis?: No Physical Exam Vital Signs: Vital Signs: Last Vital Signs Temp 97.7 F 03/04/23 07:48 Pulse 63 03/04/23 07:48 Resp 18 03/04/23 07:48 BP 124/67 03/04/23 07:48 Pulse Ox 97 03/04/23 07:48 O2 Del Method Room Air 03/04/23 07:48 BMI result Body Mass Index 24.3 Gen: in no acute distress HEENT: sclera anicteric, moist mucus membranes Neck: supple Lungs: clear to auscultation bilaterally Heart: regular rate and rhythm, no murmurs Abd: soft, non-tender, non-distended Ext: no edema Skin: warm/well-perfused Neuro: alert and oriented x3, no focal findings Psych: appropriate affect DS: Data Data Completed and Pending Completed studies during hospitalization [Text1]: Laboratory Results WBC 9.0 X10*3/uL (4.8-10.8) 03/03/23 06:09 RBC 4.41 X10*6/uL (4.60-5.80) L 03/03/23 06:09 Hgb 12.9 g/dl (14.0-18.0) L 03/03/23 06:09 Hct 39.6 % (42.0-52.0) L 03/03/23 06:09 MCV 89.8 fL (80.0-98.0) 03/03/23 06:09 MCH 29.3 pg (27.0-33.0) 03/03/23 06:09 MCHC 32.6 g/dl (31.0-36.0) 03/03/23 06:09 RDW 13.2 % (11.0-16.0) 03/03/23 06:09 Plt Count 199 X10*3/uL (160-400) 03/03/23 06:09 MPV 10.3 fL (9.4-12.4) 03/03/23 06:09 Immature Gran % (Auto) 0.2 % (0.0-0.4) 03/03/23 06:09 Neut % (Auto) 72.5 % (45-73) 03/03/23 06:09 Lymph % (Auto) 14.6 % (20-40) L 03/03/23 06:09 Jennings % (Auto) 10.6 % (2-11) 03/03/23 06:09 Eos % (Auto) 1.7 % (0-4) 03/03/23 06:09 Baso % (Auto) 0.4 % (0-2) 03/03/23 06:09 Lymph # (Auto) 1.3 X10*3/uL (1.2-4.9) 03/03/23 06:09 Jennings # (Auto) 1.0 X10*3/uL (0.1-1.2) 03/03/23 06:09 Eos # (Auto) 0.2 X10*3/uL (0.0-0.4) 03/03/23 06:09 Baso # (Auto) 0.0 X10*3/uL (0.0-0.2) 03/03/23 06:09 Abs Immat Gran (auto) 0.02 X10*3/uL (0.00-0.03) 03/03/23 06:09 Absolute Neuts (auto) 6.5 x10*3/uL (2.0-8.3) 03/03/23 06:09 Absolute Nucleated RBC 0.000 X10*3/uL (0.0-0.012) 03/03/23 06:09 Nucleated RBC % (auto) 0.0 /100WBC (0.0-0.2) 03/03/23 06:09 Sodium 143 mmol/L (135-145) 03/04/23 05:33 Potassium 3.2 mmol/L (3.3-5.1) L 03/04/23 05:33 Chloride 107 mmol/L (96-108) 03/04/23 05:33 Carbon Dioxide 28 mmol/L (22-29) 03/04/23 05:33 Anion Gap 11 (12-20) L 03/04/23 05:33 BUN 9 mg/dL (9-16) 03/04/23 05:33 Creatinine 0.69 mg/dL (0.5-1.4) 03/04/23 05:33 Estim Creat Clear Calc 83.9 03/04/23 05:33 Estimated GFR > 60 03/04/23 05:33 Random Glucose 98 mg/dL (60-115) 03/04/23 05:33 Calcium 8.6 mg/dL (8.4-10.2) 03/04/23 05:33 Total Bilirubin 1.5 mg/dL (0.0-1.0) H 03/02/23 12:17 AST 28 U/L (5-37) 03/02/23 12:17 ALT 37 U/L (0-40) 03/02/23 12:17 Alkaline Phosphatase 68 U/L (39-117) 03/02/23 12:17 C-Reactive Protein 1.26 mg/dL (< or = 0.50) H 03/03/23 06:09 Total Protein 6.3 g/dL (6.5-8.0) L 03/02/23 12:17 Albumin 3.9 g/dL (3.5-5.0) 03/02/23 12:17 Urine Color Yellow 03/02/23 13:41 Urine Appearance Clear 03/02/23 13:41 Urine pH 7.5 (5.0-9.0) 03/02/23 13:41 Ur Specific [place] 1.010 (1.005-1.025) 03/02/23 13:41 Urine Protein Negative mg/dL (Neg-Trace) 03/02/23 13:41 Urine Glucose (UA) Negative mg/dL (Negative) 03/02/23 13:41 Urine Ketones Negative mg/dL (Negative) 03/02/23 13:41 Urine Blood Negative (Negative) 03/02/23 13:41 Urine Nitrite Negative (Negative) 03/02/23 13:41 Ur Leukocyte Esterase Negative (Negative) 03/02/23 13:41 Impressions Abdomen/Pelvis CT 03/02/23 14:09 IMPRESSION: Severe constipation and probable mild obstipation or obstruction. Wall thickening of the distal colon and stranding of the surrounding fat suggestive of stercoral colitis. No evidence of abscess or perforation. Interval increase in bilateral lower lobe pulmonary nodules. Follow-up chest CT recommended. Findings will be communicated by the [place] work flow retail greeting card merchandiser.. Fleischner guidelines were followed. Abdomen X-Ray 03/04/23 09:52 IMPRESSION: Decreased stool burden compared to recent CT scan Labs on day of discharge: Laboratory Results - last 24 hr 03/04/23 05:33 Sodium 143 Potassium 3.2 L Chloride 107 Carbon Dioxide 28 Anion Gap 11 L BUN 9 Creatinine 0.69 Estim Creat Clear Calc 83.9 Estimated GFR > 60 Random Glucose 98 Calcium 8.6 Discharge Plan Discharge Anticipated Discharge Date/Time: 03/04/23 11:28 Patient Disposition: Home, Self-Care Discharge Diagnosis: constipation, stercoral colitis Referrals: Radha Aj MD [Primary Care Provider] - 1 Week Discharge Medications: New sennosides-docusate sodium [Senna Plus] 8.6-50 mg Tablet 2 tab PO BID Qty: 120 0RF polyethylene glycol 3350 [Miralax] 17 gram/dose powder 17 g PO DAILY PRN (Reason: constipation) Qty: 510 0RF lactulose 20 gram/30 mL solution 20 g PO BID PRN (Reason: constipation) Qty: 1200 0RF Continued aspirin 81 mg Tablet,Delayed Release (Dr/Ec) 81 mg PO DAILY metoprolol tartrate 25 mg Tablet 25 mg PO BID amlodipine 5 mg tablet 5 mg PO DAILY ferrous sulfate 324 mg (65 mg iron) tablet,delayed release (DR/EC) 324 mg PO DAILY lisinopril 20 mg tablet 20 mg PO BID furosemide 20 mg tablet 20 mg PO DAILY atorvastatin 40 mg tablet 40 mg PO DAILY ketoconazole 2 % shampoo 1 appl topical DAILY Discontinued docusate sodium 100 mg capsule 100 mg PO BID Discharge Orders: Discharge Order (Routine); Ordered 03/04/23 Ordered By: Harry Hill Diet: Advance to usual diet Activity on Discharge: As tolerated Stand Alone Forms: Patient Portal Discharge page Care Plan Goals: relief of constipation Health Concerns: constipation, stercoral colitis Plan of Treatment: drink plenty of liquids eat plenty of fiber take senna/docusate 8.6/50 mg 2 tabs twice daily use Miralax 1 packet daily as needed for constipation use lactulose 30mL twice daily as needed for constipation not relieved by above measures follow up with Dr Ritter as scheduled tomorrow Please follow up with your primary care doctor within 1 week. Return to the hospital if you experience recurrent or worsening symptoms. Assessment: See Discharge Summary. Patient Instructions: Constipation (DC)
--- NOTE | 2023-03-04 12:10 | MHC.CM.PN ---
pt dcd home no skilled servcis ordered by
== END 2023-03-04 14:00 | disposition home or self-care (01) ==
LOC: HO.ED 19:27 → HO.EDOVER 20:25 → HO.S3 21:20
PROVIDERS: Registered Nurse Emergency; Admitting Provider Student in an Organized Health Care Education/Training Program; Emergency Provider Emergency Medicine; PCP Family Medicine; Visit Provider Family Medicine
DX: K59.00 Constipation, unspecified (principal); R10.9 Unspecified abdominal pain; K52.89 Other specified noninfective gastroenteritis and colitis; E46 Unspecified protein-calorie malnutrition; Z68.24 Body mass index [BMI] 24.0-24.9, adult; E11.9 Type 2 diabetes mellitus without complications; I10 Essential (primary) hypertension; E78.5 Hyperlipidemia, unspecified; Z79.02 Long term (current) use of antithrombotics/antiplatelets; Z79.899 Other long term (current) drug therapy; Z79.82 Long term (current) use of aspirin
CPT/HCPCS: 36415; 74018; 74177; 80048; 80053; 81003; 85025; 86140; 96365; 96367; 96372; 99221; 99285; J1650; J1956; Q9967

== ENCOUNTER → 2023-03-05 12:12 | Outpatient (BNVA) | payer MEDICARE, OTHER, SELFPAY | PROVIDERS: PCP Family Medicine; Visit Provider Internal Medicine Gastroenterology | DX: K59.00 Constipation, unspecified (principal); K52.89 Other specified noninfective gastroenteritis and colitis; R10.9 Unspecified abdominal pain | CPT/HCPCS: 99212 ==

== ENCOUNTER 2023-03-21 00:31 | Emergency (ER) | payer MEDICARE, OTHER, SELFPAY ==
[2023-03-21 00:32] VITALS: BP 138/74; PULSE 95; RESP 18; TEMP 37.3; O2SAT 95; BMI 29.2
[2023-03-21 01:02] LABS: MANUAL DIFF FLAG NO
[2023-03-21 01:04] LABS: Basophils Percent Auto 0.2 % (0-2); Eosinophils Absolute Auto 0.2 X10*3/uL (0.0-0.4); Eosinophils Percent Auto 1.3 % (0-4); Hematocrit 39.2 % (42.0-52.0); Hemoglobin 12.7 g/dl (14.0-18.0); Imm Gran Abs Auto 0.07 X10*3/uL (0.00-0.03); Imm Gran Pct Auto 0.5 % (0.0-0.4); Lymphocytes Absolute Auto 0.5 X10*3/uL (1.2-4.9); Lymphocytes Percent Auto 3.2 % (20-40); Mean Corpuscular HGB Conc 32.4 g/dl (31.0-36.0); Mean Corpuscular Hemoglobin 29.7 pg (27.0-33.0); Mean Corpuscular Volume 91.6 fL (80.0-98.0); Mean Platelet Volume 11.2 fL (9.4-12.4); Monocytes Absolute Auto 1.2 X10*3/uL (0.1-1.2); Monocytes Percent Auto 7.8 % (2-11); Neutrophils Absolute Auto 13.2 x10*3/uL (2.0-8.3); Platelet Count 192 X10*3/uL (160-400); Red Blood Count 4.28 X10*6/uL (4.60-5.80); Red Cell Distribution Width 13.1 % (11.0-16.0); White Blood Count 15.2 X10*3/uL (4.8-10.8)
[2023-03-21 01:30] LABS: Anion Gap 14 (12-20); Blood Urea Nitrogen 8 mg/dL (9-16); Calcium 8.7 mg/dL (8.4-10.2); Carbon Dioxide 25 mmol/L (22-29); Chloride 106 mmol/L (96-108); Creatinine Clr Calc Pharmacy 73.4; Estimated Glomerular Filt Rate > 60; Glucose Random 148 mg/dL (60-115); Potassium 3.1 mmol/L (3.3-5.1); Sodium 142 mmol/L (135-145)
--- NOTE | 2023-03-21 02:25 | ED.GENADULT ---
HPI - General Adult General Chief complaint: General Medical Stated complaint: Low back pain, dizzy,fever Time Seen by Provider: 03/21/23 02:24 Source: patient Mode of arrival: ambulatory Limitations: no limitations History of Present Illness HPI narrative: Patient with history of asthma comes here for diffuse body aches cough is no urinary symptoms no shortness of breath no had subjective fever at home no other family member sick Related Data Home Medications Medication Instructions Recorded Confirmed amlodipine 5 mg tablet 5 mg PO DAILY 01/12/21 03/02/23 atorvastatin 40 mg tablet 40 mg PO DAILY 01/12/21 03/02/23 ferrous sulfate 324 mg (65 mg 324 mg PO DAILY 01/12/21 03/02/23 iron) tablet,delayed release furosemide 20 mg tablet 20 mg PO DAILY 01/12/21 03/02/23 lisinopril 20 mg tablet 20 mg PO BID 01/12/21 03/02/23 aspirin 81 mg tablet,delayed 81 mg PO DAILY 05/13/21 03/02/23 release ketoconazole 2 % shampoo 1 appl topical DAILY 04/18/22 09/05/22 metoprolol tartrate 25 mg tablet 25 mg PO BID 03/02/23 03/02/23 Previous Rx's Medication Instructions Recorded polyethylene glycol 3350 17 17 g PO DAILY PRN constipation 03/04/23 gram/dose oral powder (Miralax) #510 grams sennosides 8.6 mg-docusate sodium 2 tab PO BID #120 tabs 03/04/23 50 mg tablet (Senna Plus) lactulose 20 gram/30 mL oral 20 g (30 mL) PO BID PRN 03/05/23 solution constipation #1,200 mL amoxicillin 875 mg-potassium 1 tab PO BID #20 tabs 03/21/23 clavulanate 125 mg tablet ibuprofen 600 mg tablet 600 mg PO Q6H PRN fever or pain 03/21/23 #30 tabs Allergies Allergy/AdvReac Type Severity Reaction Status Date / Time No Known Allergies Allergy Verified 03/05/23 12:17 Review of Systems Review of Systems: Yes all other systems are reviewed and are negative PMFSH Past Medical History Medical History Anemia Asthma Bleeding hemorrhoids COVID-19 vaccine series completed Diabetes Elevated cholesterol GERD with esophagitis History of cardioversion HTN (hypertension) Hx of atrial flutter Low back pain Rectal bleeding Tubular adenoma of colon Surgical History H/O colonoscopy History of esophagogastroduodenoscopy (EGD) Hx of appendectomy Hx of cardiac catheterization Hx of eye surgery Hx of resection of small bowel Family History Family History Mother Heart attack Cancer Social History Social History Household Members: None Housing: Apartment Are you a primary managed care liaison to a significant other at home: No Do you presently have visiting nurse or other home services: No Patient Tobacco Use Status: Never used Tobacco Smoked in Last 30 Days: No Second Hand Smoke Exposure: No Use of substances other than those prescribed or required for medical reasons: No Advance Directives: No Advance Directives Information Provided: No service: No Current occupational status: retired Physical Exam ED Vital Signs: Vital Signs - 24 hr 03/21/23 00:32 03/21/23 03:09 03/21/23 05:13 Temperature 99.2 F 98.2 F 98.1 F Pulse Rate 95 78 70 Respiratory Rate 18 14 16 Blood Pressure 138/74 130/67 121/64 Pulse Oximetry 95 96 95 Oxygen Delivery Method Room Air Room Air BMI result Body Mass Index 29.2 Appearance: Alert. Oriented X3. No acute distress. Eyes: PERRLA, ENT: Pharynx normal. Oral Mucosa moist Neck: Normal inspection. Neck supple. CVS: Normal heart rate and rhythm. Pulses normal. Respiratory: No respiratory distress. Equal air entry bilateral, no wheezing/rales/rhonchi Abdomen: Soft and nontender. Bowel sounds are present, no mass palpable, no CVA tenderness Skin: Skin warm and dry. Normal skin color. Normal skin turgor. Extremities: No lower extremity edema. No calf tenderness Neuro: Oriented X 3. No motor deficit. No sensory deficit.No cerebellar signs , cranial nerves II-XII intact Medications Administered Discontinued Medications Generic Name Dose Route Start Last Admin Trade Name Freq PRN Reason Stop Dose Admin Amoxicillin/Clavulanate Potassium 875 mg 03/21/23 04:44 03/21/23 05:12 Amoxicillin/Potassium Clav 875 Mg Tablet PO 03/21/23 04:45 875 mg ONCE ONE Administration Sodium Chloride 1,000 mls @ 999 mls/hr 03/21/23 02:25 03/21/23 05:12 Ns IV 03/21/23 03:25 Infused .Q1H1M ONE Infusion Medical Decision Making Medical Decision Making [facility] Narrative: Patient nonspecific body complaints workup is negative except for leukocytosis, patient feel congested will give a course of Augmentin Lab Data [facility] Lab Attestation statement: I reviewed the patient's lab results. 03/21/23 00:52 03/21/23 00:52 Labs: Lab Results 03/21/23 03/21/23 03/21/23 Range/Units 00:52 00:52 03:12 WBC 15.2 H (4.8-10.8) X10*3/uL RBC 4.28 L (4.60-5.80) X10*6/uL Hgb 12.7 L (14.0-18.0) g/dl Hct 39.2 L (42.0-52.0) % MCV 91.6 (80.0-98.0) fL MCH 29.7 (27.0-33.0) pg MCHC 32.4 (31.0-36.0) g/dl RDW 13.1 (11.0-16.0) % Plt Count 192 (160-400) X10*3/uL MPV 11.2 (9.4-12.4) fL Immature Gran % (Auto) 0.5 H (0.0-0.4) % Neut % (Auto) 87.0 H (45-73) % Lymph % (Auto) 3.2 L (20-40) % Tillman % (Auto) 7.8 (2-11) % Eos % (Auto) 1.3 (0-4) % Baso % (Auto) 0.2 (0-2) % Lymph # (Auto) 0.5 L (1.2-4.9) X10*3/uL [place]man # (Auto) 1.2 (0.1-1.2) X10*3/uL Eos # (Auto) 0.2 (0.0-0.4) X10*3/uL Baso # (Auto) 0.0 (0.0-0.2) X10*3/uL Abs Immat Gran (auto) 0.07 H (0.00-0.03) X10*3/uL Absolute Neuts (auto) 13.2 H (2.0-8.3) x10*3/uL Absolute Nucleated RBC 0.000 (0.0-0.012) X10*3/uL Nucleated RBC % (auto) 0.0 (0.0-0.2) /100WBC Sodium 142 (135-145) mmol/L Potassium 3.1 L (3.3-5.1) mmol/L Chloride 106 (96-108) mmol/L Carbon Dioxide 25 (22-29) mmol/L Anion Gap 14 (12-20) BUN 8 L (9-16) mg/dL Creatinine 0.74 (0.5-1.4) mg/dL Estim Creat Clear Calc 73.4 Estimated GFR > 60 Random Glucose 148 H (60-115) mg/dL Lactic Acid 1.1 (0.5-2.0) mmol/L Calcium 8.7 (8.4-10.2) mg/dL Total Creatine Kinase 262 H (38-174) U/L COVID-19 (AUREA) (Negative) COVID-19 Clin Com 03/21/23 Range/Units 03:12 WBC (4.8-10.8) X10*3/uL RBC (4.60-5.80) X10*6/uL Hgb (14.0-18.0) g/dl Hct (42.0-52.0) % MCV (80.0-98.0) fL MCH (27.0-33.0) pg MCHC (31.0-36.0) g/dl RDW (11.0-16.0) % Plt Count (160-400) X10*3/uL MPV (9.4-12.4) fL Immature Gran % (Auto) (0.0-0.4) % Neut % (Auto) (45-73) % Lymph % (Auto) (20-40) % Tillman % (Auto) (2-11) % Eos % (Auto) (0-4) % Baso % (Auto) (0-2) % Lymph # (Auto) (1.2-4.9) X10*3/uL Tillman # (Auto) (0.1-1.2) X10*3/uL Eos # (Auto) (0.0-0.4) X10*3/uL Baso # (Auto) (0.0-0.2) X10*3/uL Abs Immat Gran (auto) (0.00-0.03) X10*3/uL Absolute Neuts (auto) (2.0-8.3) x10*3/uL Absolute Nucleated RBC (0.0-0.012) X10*3/uL Nucleated RBC % (auto) (0.0-0.2) /100WBC Sodium (135-145) mmol/L Potassium (3.3-5.1) mmol/L Chloride (96-108) mmol/L Carbon Dioxide (22-29) mmol/L Anion Gap (12-20) BUN (9-16) mg/dL Creatinine (0.5-1.4) mg/dL Estim Creat Clear Calc Estimated GFR Random Glucose (60-115) mg/dL Lactic Acid (0.5-2.0) mmol/L Calcium (8.4-10.2) mg/dL Total Creatine Kinase (38-174) U/L COVID-19 (AUREA) Negative (Negative) COVID-19 Clin Com See Note Discharge Plan Discharge Clinical Impression: Acute bronchitis Patient Disposition: Home, Self-Care Instructions: Acute Bronchitis (ED) Additional Instructions: Take antibiotic as prescribed Tylenol/Motrin for fever/pain Follow with PCP if not better Prescriptions: New ibuprofen 600 mg tablet 600 mg PO Q6H PRN (Reason: fever or pain) Qty: 30 0RF amoxicillin-pot clavulanate 875-125 mg tablet 1 tab PO BID Qty: 20 0RF No Action aspirin 81 mg Tablet,Delayed Release (Dr/Ec) 81 mg PO DAILY metoprolol tartrate 25 mg Tablet 25 mg PO BID sennosides-docusate sodium [Senna Plus] 8.6-50 mg Tablet 2 tab PO BID Qty: 120 0RF polyethylene glycol 3350 [Miralax] 17 gram/dose powder 17 g PO DAILY PRN (Reason: constipation) Qty: 510 0RF amlodipine 5 mg tablet 5 mg PO DAILY ferrous sulfate 324 mg (65 mg iron) tablet,delayed release (DR/EC) 324 mg PO DAILY lisinopril 20 mg tablet 20 mg PO BID furosemide 20 mg tablet 20 mg PO DAILY atorvastatin 40 mg tablet 40 mg PO DAILY ketoconazole 2 % shampoo 1 appl topical DAILY lactulose 20 gram/30 mL solution 20 g PO BID PRN (Reason: constipation) Qty: 1200 0RF Interventions: ED Discharge Assessment Last Done: 03/21/23 05:35 Discharge Date/Time: 03/21/23 05:35
[2023-03-21 03:09] VITALS: BP 130/67; PULSE 78; RESP 14; TEMP 36.8; O2SAT 96
[2023-03-21] MEDS: 0.9 % Sodium Chloride 1,000 ML 999 ML IV (03:10)
[2023-03-21 03:31] LABS: Lactic Acid 1.1 mmol/L (0.5-2.0)
[2023-03-21 03:35] LABS: COVID-19 Test Negative (Negative); IDNOW Serial# 6674DD1D
[2023-03-21] MEDS: Amoxicillin/Potassium Clav 875 MG TABLET PO (05:12)
[2023-03-21 05:13] VITALS: BP 121/64; PULSE 70; RESP 16; TEMP 36.7; O2SAT 95
--- NOTE | 2023-03-21 05:20 | PC.NURSE ---
this rn assumed care of pt from waiting room at 0215. pt ambulatory. pt medicated according to dec. iv placed 20g in R AC. pt tolerated well.
--- NOTE | 2023-03-21 05:22 | PC.NURSE ---
pt ambulatory at discharge. pt calm and cooperative. pt medicated according to dec. iv removed. vss. skin pwd. pt provided with discharge plan pt verbalized understanding of discharge plan
== END 2023-03-21 05:35 | disposition home or self-care (01) ==
PROVIDERS: Emergency Provider Internal Medicine
DX: J20.9 Acute bronchitis, unspecified (principal); E11.9 Type 2 diabetes mellitus without complications; I10 Essential (primary) hypertension; E78.5 Hyperlipidemia, unspecified; Z79.82 Long term (current) use of aspirin; Z79.02 Long term (current) use of antithrombotics/antiplatelets; Z79.899 Other long term (current) drug therapy
CPT/HCPCS: 36415; 80048; 82550; 83605; 85025; 87040; 87635; 96360; 96361; 99284

== ENCOUNTER 2023-07-23 14:03 | Outpatient (AMB) | payer MEDICARE, SELFPAY ==
--- NOTE | 2023-07-23 14:07 | A.OFFVIS_ITS ---
Intake Vital Signs 07/23/23 14:11 Height 5 ft Weight 149 lb 14.629 oz BMI 29.3 BP 121/61 Blood Pressure Location Lt brachial Position Sitting Pulse 71 Intake Visit Reasons: 3 month follow up Intake Note: Tom presents in the office as a 3 month follow up. CC: He states today his stomach is hurting him very much. He just had a BM and it was not that much - it has been bothering him for a couple days now. He talked to his visiting nurse about it and they told him that it may be a hernia. Therapist checked him out and she did not find anything that may say that he has a hernia. He would like to have an ultrasound done - he lifted his kitchen chair and he felt that the chair was so heavy and it felt like someone was pulling his stomach down. When he walks with his cane - his walking bothers his stomach on the lower part of his abdomen. Allergies No Known Allergies Allergy (Verified 03/05/23 12:17) HPI 3 month follow up HPI Details 83 yr old m a-flutter, HTN, HLP, asthma, jejunal ca s/p chemo and? being seen for f/u RECAP: He had seen DR Barcenas earlier this year and plan was for EGD for barretts and colonoscopy due to rectal bleeding He had EGD/colonoscopy and capsule endo 2019 due to bleeding and anemia ?barretts, also may have had jejunal resection due to neoplasia He does have tenesmus, feels likes he has to go and nothing happens he sees blood few times/month in stool, on wiping and in the water he has constipation, can take 2-3 d to pass stools which is new he has been taking miralax bid which has helped a lot he is v anxious to have EGD as he has a feeling of something is his chest, like stuck been going on for 1 year or more he has no problems swallowing liquid but he feels the liquids going down he has trouble swallowing pills sometimes, has to take multiple sips to get it down he has no problem with food as long as he chews thoroughly EGD/colonoscopy: 08/2021: dilation done, with balloon, no tear noted, hiatal hernia Endoscopy Findings: hiatal hernia barretts esophagus gastritis/gastropathy? Colonoscopy Findings: polyps internal hemorrhoids diverticular disease Path: focal gastritis He had diarrhea and went to ED with imaging revealing several abnormalities with indeterminate liver lesion, thickening of rectosigmoid area, pulm nodules Stool tests were negative havign blood in stool having tenesmus sigmoidoscopy was done and revealed diverticulosis with small hemorrhoid, no masses or lesions seen HE was admitted 02/2023 with constipation and stercoral colitis, treated with laxatives mineral oil enemas, GoLytely, bisacodyl, and senna/docusate with good effect INTERIM: he was lifting a heavy chair and after that he felt pressure in his stomach, like something coming out this was 1 week ago appetite is good no nausea or vomiting denies constipation, can have tenesmus sensation passing stool and gas urine was coming out too much today which is unusual -no dysuria EXAM: GENERAL: The patient is relaxed VITAL SIGNS:see workflow HEENT: Nonicteric sclerae, PERRLA, EOMI. Oropharynx clear. Moist mucous membranes. Conjunctivae appear well perfused. No thyroid mass. CHEST: Chest wall is nontender. HEART: Regular rate and rhythm without murmurs. LUNGS: Clear to auscultation bilaterally. ABDOMEN: Soft, positive bowel sounds, tender supraubic area +, no organomegaly.no flank tenderness SKIN: No rash, no excessive bruising, petechiae, or purpura. NEUROLOGIC: Cranial nerves II-XII intact without motor/sensory deficit. A/P; 1/ Suprapubic tenderness, increased urin ation, r/o cystitis, also c/o tenesmus uncertain if related PLAN: 1/ KUB 2/ UA and labs 3/ US abdomen 4/ might need colonoscopy or sigmoidosco py if ongoing sx PFSH Medical History Anemia Asthma Bleeding hemorrhoids COVID-19 vaccine series completed Diabetes Elevated cholesterol GERD with esophagitis History of cardioversion HTN (hypertension) Hx of atrial flutter Low back pain Rectal bleeding Tubular adenoma of colon Surgical History H/O colonoscopy History of esophagogastroduodenoscopy (EGD) Hx of appendectomy Hx of cardiac catheterization Hx of eye surgery Hx of resection of small bowel Family History Mother Heart attack Cancer Social History Household Members: None Housing: Apartment Are you a primary intensive care unit nurse to a significant other at home: No Do you presently have visiting nurse or other home services: No Patient Tobacco Use Status: Never used Tobacco Second Hand Smoke Exposure: No service: No Current occupational status: retired Physical Exam Vital Signs: Last Vital Signs Pulse 71 07/23/23 14:11 BP 121/61 07/23/23 14:11 BMI result Body Mass Index 29.3 Assessment & Plan Assessment & Plan (1) Suprapubic tenderness: Code(s): R10.819 - Abdominal tenderness, unspecified site (2) Malaise: Code(s): R53.81 - Other malaise Orders: Orders C Reactive Protein Today R10.819 - Abdominal tenderness, unspecified site, R53.81 - Other malaise Comprehensive Met. Panel Today K75.81 - Nonalcoholic steatohepatitis (LIM), R10.819 - Abdominal tenderness, unspecified site, R53.81 - Other malaise UA CC w/rflx Micro + Cult Today R10.819 - Abdominal tenderness, unspecified site, R30.0 - Dysuria, R53.81 - Other malaise XR KUB Today R10.819 - Abdominal tenderness, unspecified site, R53.81 - Other malaise US abdomen complete Today R10.819 - Abdominal tenderness, unspecified site, R53.81 - Other malaise Complete Blood Count Auto Diff Today R10.819 - Abdominal tenderness, unspecified site, R53.81 - Other malaise Coding Level of Care Code Est Pt Level 3 (25640) Diagnoses Suprapubic tenderness R10.819 Malaise R53.81
[2023-07-23 14:11] VITALS: BP 121/61; PULSE 71; BMI 29.3
== END 2023-07-23 14:56 | disposition home or self-care (01) ==
PROVIDERS: PCP Family Medicine; Visit Provider Internal Medicine Gastroenterology
DX: R10.819 Abdominal tenderness, unspecified site (principal); R53.81 Other malaise
CPT/HCPCS: 99213

== ENCOUNTER → 2023-07-23 14:03 | Outpatient (BNVA) | payer MEDICARE, OTHER, SELFPAY | PROVIDERS: Visit Provider Internal Medicine Gastroenterology | DX: R10.819 Abdominal tenderness, unspecified site (principal); C17.1 Malignant neoplasm of jejunum; K75.81 Nonalcoholic steatohepatitis (NASH); R53.81 Other malaise; Z92.21 Personal history of antineoplastic chemotherapy | CPT/HCPCS: 99212 ==

== ENCOUNTER 2023-08-09 10:47 | Outpatient (REF) | payer MEDICARE, OTHER, SELFPAY ==
--- NOTE | ~2023-08-09 | US_ITS ---
EXAMINATION: US PELVIS, LIMITED/FOLLOW UP CLINICAL INFORMATION: Suprapubic tenderness, question hernia COMPARISON: CT abdomen pelvis 03/02/2023 TECHNIQUE: Transabdominal views of the soft tissues of the abdominal wall were obtained. FINDINGS: A ventral right para midline suprapubic hernia with a 1.4 cm neck containing fat. No definite herniated bowel however if any clinical concern CT abdomen pelvis could be obtained. US/US pelvic limited IMPRESSION: A ventral right para midline suprapubic hernia with a 1.4 cm neck containing fat. No definite herniated bowel however if any clinical concern CT abdomen pelvis could be obtained.
== END 2023-08-09 10:48 | disposition home or self-care (01) ==
LOC: HO.HMGCX 10:47
PROVIDERS: PCP Family Medicine; Visit Provider Internal Medicine Gastroenterology
DX: R10.819 Abdominal tenderness, unspecified site (principal); R53.81 Other malaise
CPT/HCPCS: 76857

== ENCOUNTER → 2023-08-24 11:51 | Outpatient (BNVA) | payer MEDICARE, SELFPAY | PROVIDERS: PCP Family Medicine; Visit Provider Internal Medicine Gastroenterology | DX: K43.9 Ventral hernia without obstruction or gangrene (principal) | CPT/HCPCS: 99212 ==

== ENCOUNTER 2023-08-24 11:52 | Outpatient (AMB) | payer MEDICARE, SELFPAY ==
--- NOTE | 2023-08-24 12:02 | MHC.OFFVIS ---
Intake Vital Signs 08/24/23 12:05 Height 5 ft Weight 134 lb BMI 26.2 BP 134/77 Blood Pressure Location Lt brachial Position Sitting Pulse 87 Intake Visit Reasons: 4W follow up Intake Note: Patient follow up US results. Patient cc: acid reflex on and off, some swallowing problems with a lot of coughing and urgency of BM. Health Care Technician Required: No Accompanied by: Self / Same As Patient Allergies No Known Allergies Allergy (Verified 08/24/23 12:02) HPI 4W follow up HPI Details 83 yr old m a-flutter, HTN, HLP, asthma, jejunal ca s/p chemo and? being seen for f/u RECAP: He had seen DR Barcenas earlier this year and plan was for EGD for barretts and colonoscopy due to rectal bleeding He had EGD/colonoscopy and capsule endo 2019 due to bleeding and anemia ?barretts, also may have had jejunal resection due to neoplasia He does have tenesmus, feels likes he has to go and nothing happens he sees blood few times/month in stool, on wiping and in the water he has constipation, can take 2-3 d to pass stools which is new he has been taking miralax bid which has helped a lot he is v anxious to have EGD as he has a feeling of something is his chest, like stuck been going on for 1 year or more he has no problems swallowing liquid but he feels the liquids going down he has trouble swallowing pills sometimes, has to take multiple sips to get it down he has no problem with food as long as he chews thoroughly EGD/colonoscopy: 08/2021: dilation done, with balloon, no tear noted, hiatal hernia Endoscopy Findings: hiatal hernia barretts esophagus gastritis/gastropathy? Colonoscopy Findings: polyps internal hemorrhoids diverticular disease Path: focal gastritis He had diarrhea and went to ED with imaging revealing several abnormalities with indeterminate liver lesion, thickening of rectosigmoid area, pulm nodules Stool tests were negative havign blood in stool having tenesmus sigmoidoscopy was done and revealed diverticulosis with small hemorrhoid, no masses or lesions seen HE was admitted 02/2023 with constipation and stercoral colitis, treated with laxatives mineral oil enemas, GoLytely, bisacodyl, and senna/docusate with good effect INTERIM: has itchy eyes,sneezing and sore throat intermittently he stil has pain and discomfort right lower area, Us revealed a ventral hernia, with 1.4 cm he has noted more trouble swallowing food --seems to take a long time but goes down eventually appetite is good no nausea or vomiting EXAM: GENERAL: The patient is relaxed VITAL SIGNS:see workflow HEENT: Nonicteric sclerae, PERRLA, EOMI. Oropharynx clear. Moist mucous membranes. Conjunctivae appear well perfused. No thyroid mass. CHEST: Chest wall is nontender. HEART: Regular rate and rhythm without murmurs. LUNGS: Clear to auscultation bilaterally. ABDOMEN: Soft, positive bowel sounds, tender supraubic area around the area of the hernia, no organomegaly.no flank tenderness SKIN: No rash, no excessive bruising, petechiae, or purpura. NEUROLOGIC: Cranial nerves II-XII intact without motor/sensory deficit. A/P; 1/ ventral hernia 2/ dysphagia -prior dilation which he feels helped PLAN: 1/EGD with ballon dilation due to swallowing issues, prior dilation in past 2020 2/ refer surgery for hernia repair [facility] Medical History Anemia Asthma Bleeding hemorrhoids COVID-19 vaccine series completed Diabetes Elevated cholesterol GERD with esophagitis History of cardioversion HTN (hypertension) Hx of atrial flutter Low back pain Rectal bleeding Tubular adenoma of colon Surgical History Hx of eye surgery Hx of resection of small bowel Hx of cardiac catheterization History of esophagogastroduodenoscopy (EGD) H/O colonoscopy Hx of appendectomy Family History Mother Heart attack Cancer Social History Household Members: None Housing: Apartment Are you a primary manager respiratory care to a significant other at home: No Do you presently have visiting nurse or other home services: No Patient Tobacco Use Status: Never used Tobacco Second Hand Smoke Exposure: No service: No Current occupational status: retired Physical Exam Vital Signs: Last Vital Signs Pulse 87 08/24/23 12:05 BP 134/77 08/24/23 12:05 BMI result Body Mass Index 26.2 Assessment & Plan Assessment & Plan (1) Ventral hernia: Code(s): K43.9 - Ventral hernia without obstruction or gangrene Orders: Referrals General Surgery Referral K43.9 - Ventral hernia without obstruction or gangrene Coding Level of Care Code Est Pt Level 4 (14570) Diagnoses Ventral hernia K43.9
[2023-08-24 12:05] VITALS: BP 134/77; PULSE 87; BMI 26.2
== END 2023-08-24 12:43 | disposition home or self-care (01) ==
PROVIDERS: PCP Family Medicine; Visit Provider Internal Medicine Gastroenterology
DX: K43.9 Ventral hernia without obstruction or gangrene (principal)
CPT/HCPCS: 99214

== ENCOUNTER 2023-09-11 13:07 | Outpatient (AMB) | payer MEDICARE, SELFPAY ==
--- NOTE | 2023-09-11 13:26 | A.OFFVIS_ITS ---
Intake Vital Signs 09/11/23 13:43 Height 5 ft 3 in Weight 154 lb BMI 27.3 BP 134/62 Blood Pressure Location Rt brachial Position Sitting Pulse 78 Intake Visit Reasons: Ventral hernia Intake Note: Patient referred by Dr. Ritter for ventral hernia. Abd US on 08-09-23. C/o pain on Rt and Lt lower abd. Denies nausea, constipation, diarrhea. Feels like abd is swollen. Casing Splitter Required: No Accompanied by: Self / Same As Patient Allergies No Known Allergies Allergy (Verified 09/11/23 13:34) HPI HPI Comments History of Present Illness Details Patient presents for evaluation of a symptomatic in ventral/incisional hernia. Patient had 2 abdominal surgical procedures . One was in his youth and will was approximately 10 years ago. Presents now with this painful incisional hernia. He has tolerated being his diet. He is occasionally constipated. He has no other GI issues or complaints. Chart was reviewed patient evaluated. Patient had recent ultrasound demonstrating hernia defect. [facility] Medical History Bleeding hemorrhoids Low back pain COVID-19 vaccine series completed Tubular adenoma of colon Asthma Diabetes History of cardioversion Hx of atrial flutter Anemia Elevated cholesterol HTN (hypertension) GERD with esophagitis Rectal bleeding Surgical History Hx of eye surgery Hx of resection of small bowel Hx of cardiac catheterization History of esophagogastroduodenoscopy (EGD) H/O colonoscopy Hx of appendectomy Family History Mother Heart attack Cancer Household Members: None Housing: Apartment Are you a primary career coordinator to a significant other at home: No Do you presently have visiting nurse or other home services: No Alcohol intake: never Patient Tobacco Use Status: Never used Tobacco Second Hand Smoke Exposure: No service: No Current occupational status: retired Physical Exam Vital Signs: Last Vital Signs Pulse 78 09/11/23 13:43 BP 134/62 09/11/23 13:43 BMI result Body Mass Index 27.3 Chest Other: Chest breath sounds bilaterally, HS 1 in 2 GI Other: Patient was examined both supine and standing with Valsalva. Genitalia within normal limits. Bilateral groin exam negative. Patient has a in infraumbilical ventral right paramedian suprapubic incisional hernia. Assessment & Plan Assessment & Plan (1) Ventral hernia: Code(s): K43.9 - Ventral hernia without obstruction or gangrene Plan Risks, benefits, alternatives of open repair of incisional ventral hernia with mesh were reviewed with the patient and included but not limited to bleeding, infection, recurrence, numbness, pain, scarring, bowel injury and the patient wishes to proceed. All questions were answered. Arrangements were made for this. Coding Level of Care Code New Pt Level 5 (43181) Diagnoses Ventral hernia K43.9
[2023-09-11 13:43] VITALS: BP 134/62; PULSE 78; BMI 27.3
== END 2023-09-11 13:52 | disposition home or self-care (01) ==
PROVIDERS: PCP Family Medicine; Referring Provider Internal Medicine Gastroenterology; Visit Provider Surgery
DX: K43.9 Ventral hernia without obstruction or gangrene (principal)
CPT/HCPCS: 99204; 99214

== ENCOUNTER → 2023-09-11 13:07 | Outpatient (BNVA) | payer MEDICARE, SELFPAY | PROVIDERS: PCP Family Medicine; Referring Provider Internal Medicine Gastroenterology; Visit Provider Surgery | DX: K43.9 Ventral hernia without obstruction or gangrene (principal) | CPT/HCPCS: 99202 ==

== ENCOUNTER → 2023-10-25 08:37 | Outpatient (BNV) | payer MEDICARE, SELFPAY | PROVIDERS: PCP Family Medicine; Visit Provider Internal Medicine Cardiovascular Disease | DX: R94.31 Abnormal electrocardiogram [ECG] [EKG] (principal) | CPT/HCPCS: 93010 ==

== ENCOUNTER 2023-10-25 09:51 | Day surgery (SDC) | payer MEDICARE, OTHER, SELFPAY ==
[2023-10-23 08:23] VITALS: BMI 27.3
--- NOTE | 2023-10-24 10:41 | HO.ANESPROP2 ---
Documented by User: Yaneth Ace NP 10/24/23 10:48 HPI - Anesthesia Eval Consult details Narrative: 83yo M for Open Hernia Repair Ventral Incisional w/ mesh Telephone assessment only. PCP note requested from [facility] Last cardiac infor avail 2020. PAF - no anticoag d/t hx GI bleed PMFSH Active Problems Active Problems: All Active Problems (Updated 07/23/23 @ 14:51 by Jeffy Ritter MD) Ventral hernia (Acute) Malaise (Acute) Suprapubic tenderness (Acute) Stercoral colitis (Acute) RUQ pain (Acute) Lung nodule, multiple (Chronic) Diarrhea (Acute) Bleeding hemorrhoids (Acute) Screening for colon cancer (Acute) Tubular adenoma of colon (Acute) GERD with esophagitis (Acute) Rectal bleeding (Acute) Past Medical History Medical History Bleeding hemorrhoids Low back pain COVID-19 vaccine series completed Tubular adenoma of colon Asthma Diabetes History of cardioversion Hx of atrial flutter Anemia Elevated cholesterol HTN (hypertension) GERD with esophagitis Rectal bleeding Family History Family History Mother Heart attack Cancer Family history of problems with anesthesia: No Surgical History Surgical History Hx of eye surgery Hx of resection of small bowel Hx of cardiac catheterization History of esophagogastroduodenoscopy (EGD) H/O colonoscopy Hx of appendectomy History of Problems with Anesthesia: No Social History Social History Household Members: None Housing: Apartment Are you a primary youth care professional to a significant other at home: No Do you presently have visiting nurse or other home services: No Alcohol intake: never Patient Tobacco Use Status: Never used Tobacco Second Hand Smoke Exposure: No Use of substances other than those prescribed or required for medical reasons: No Are you DNR?: No Advance Directives: No Advance Directives Information Provided: Yes service: No Current occupational status: retired Meds Allergies Allergy/AdvReac Type Severity Reaction Status Date / Time No Known Allergies Allergy Verified 09/11/23 13:34 Home Medications Medication Instructions Recorded Confirmed Last Taken Type amlodipine 5 mg tablet 5 mg PO DAILY 01/12/21 03/02/23 09/07/21 History atorvastatin 40 mg tablet 40 mg PO DAILY 01/12/21 03/02/23 Unknown History ferrous sulfate 324 mg (65 mg 324 mg PO DAILY 01/12/21 03/02/23 05/17/22 History iron) tablet,delayed release furosemide 20 mg tablet 20 mg PO DAILY 01/12/21 03/02/23 Unknown History aspirin 81 mg tablet,delayed 81 mg PO DAILY 05/13/21 03/02/23 10/24/23 History release ketoconazole 2 % shampoo 1 appl topical DAILY 04/18/22 09/05/22 Unknown History diclofenac sodium 75 mg 75 mg PO BID 07/23/23 Unknown History tablet,delayed release Exam Height,Weight and Vital Signs: Height 5 ft 3 in Weight 69.853 kg Narrative Narrative: ECHO 2020 with contrast Nml LV size, wall thickness, and systolic function. LVEF 60-65% Nml RWM. Indeterminate LV diastolic function. RV not well visualized but probably nml systolic function. PASP could not be obtained LA nml in size No hemodynamically significant valve disease. Assessment and Plan Assessment Anesthesia Assessment: Chart Reviewed Final Anesthetic Review Family History of Problems with Anesthesia: No History of Problems with Anesthesia: No Documented by User: Dagmar Delarosa MD 10/25/23 13:57 [facility] Past Medical History Medical History Bleeding hemorrhoids Low back pain COVID-19 vaccine series completed Tubular adenoma of colon Asthma Diabetes History of cardioversion Hx of atrial flutter Anemia Elevated cholesterol HTN (hypertension) GERD with esophagitis Rectal bleeding Family History Family History Mother Heart attack Cancer Surgical History Surgical History Hx of eye surgery Hx of resection of small bowel Hx of cardiac catheterization History of esophagogastroduodenoscopy (EGD) H/O colonoscopy Hx of appendectomy Social History Social History Household Members: None Housing: Apartment Are you a primary youth care professional to a significant other at home: No Do you presently have visiting nurse or other home services: No Alcohol intake: never Patient Tobacco Use Status: Never used Tobacco Second Hand Smoke Exposure: No Use of substances other than those prescribed or required for medical reasons: No Are you DNR?: No Advance Directives: No Advance Directives Information Provided: Yes service: No Current occupational status: retired [employer] Allergies Allergy/AdvReac Type Severity Reaction Status Date / Time No Known Allergies Allergy Verified 09/11/23 13:34 Home Medications Medication Instructions Recorded Confirmed Last Taken Type amlodipine 5 mg tablet 5 mg PO DAILY 01/12/21 03/02/23 09/07/21 History atorvastatin 40 mg tablet 40 mg PO DAILY 01/12/21 03/02/23 Unknown History ferrous sulfate 324 mg (65 mg 324 mg PO DAILY 01/12/21 03/02/23 05/17/22 History iron) tablet,delayed release furosemide 20 mg tablet 20 mg PO DAILY 01/12/21 03/02/23 Unknown History aspirin 81 mg tablet,delayed 81 mg PO DAILY 05/13/21 03/02/23 10/24/23 History release ketoconazole 2 % shampoo 1 appl topical DAILY 04/18/22 09/05/22 Unknown History diclofenac sodium 75 mg 75 mg PO BID 07/23/23 Unknown History tablet,delayed release Exam Airway Mallampati Class: II TM Dist: >3cm Neck ROM: Limited Partial: Upper and Lower Loose/Missing/Broken Teeth: Yes, Upper and Lower Heart: RRR Lungs: CTA Assessment and Plan Final Anesthetic Review NPO: Yes ASA Class: III Final Preanesthetic Review: Meds/Allgs Chart Reviewed, Consent Obtained/Reviewed and Anes Risks/Benef Reviewed Patient Risk: Intermediate Procedure Risk: Low Anesthetic Plan Anesthetic Plan: GA Disposition: Standard PACU
--- NOTE | 2023-10-24 11:47 | MHC.SHP ---
Pre-Procedural Eval Section A Date of Service: 10/24/23 The patient is an INPATIENT: No Changes since office visit: No Cold of Flu in the past 2 weeks, No New Medical Problems, No Changes in Medication and No Patient answered all questions The History & Physical has been completed within 30 days and I have reviewed it.: Yes Section B Chief Complaint: Ventral hernia without obstruction or gangrene Allergies: Allergies Allergy/AdvReac Type Severity Reaction Status Date / Time No Known Allergies Allergy Verified 09/11/23 13:34 Plan I have reviewed the history and physical and performed a pertinent physical examination on my patient. No changes have occurred unless specified. Time Spent With Patient Time: Total time managing care of this patient today ____ minutes.
[2023-10-25] VITALS (10 sets, daily range): BP systolic 110–136; BP diastolic 50–59; PULSE 62–82; RESP 14–21; TEMP 36.3–36.9; O2SAT 96–99; BMI 27.7
--- NOTE | 2023-10-25 10:49 | PC.NURSE ---
Abd. skin prep done by abalone fisherman
--- NOTE | 2023-10-25 15:57 | W.PM.OPN ---
Operative Note Operative Note Date of Service: 10/25/23 Narrative: Preoperative diagnosis: [] Periumbilical incisional incarcerated ventral hernia Postop diagnosis: [] Same Procedure [] repair periumbilical incisional incarcerated ventral hernia with Bard mesh Surgeon: [] Luiz Water Chaser: [] Jamey Type of Anesthesia: [] General Indication for surgery: [] Approximately 4 cm incarcerated incisional/ventral hernia with omental contents. Findings: [] Patient brought to the operating room, placed on operative table supine position, after adequate level of general anesthesia was induced, the patient's abdomen was prepped and draped in usual sterile fashion. Using a Para-umbilical incision to the left midline from the patient's previous surgery from a prior scar, this carried down through skin, subcutaneous tissue, where marked cicatrization and scarring were encountered. Hernia sac was identified and circumferentially dissected down to fascia. Sac was opened were incarcerated omental contents were reduced. Sac was amputated using Bovie. Fascial margin was circumferentially cleared. A Bard mesh was placed in this defect, and the superficial layer of the mesh was circumferentially sutured to the surrounding fascia using interrupted 0 Ethibond suture. At completion of procedure, mesh was in good position with no tension or gaps. Wound was irrigated, secured hemostasis. This was the following manner; posterior aspect of the umbilicus was tacked to the wound floor using interrupted 3-0 Vicryl sutures. Skin was closed using interrupted inverted dermal 3-0 Vicryl sutures followed by Steri-Strips and sterile dressings. Wounds were infiltrated 0.5% Marcaine at completion. Sponge, needle, instrument counts reported correct. Patient tolerated the procedure well and emerged anesthesia stable condition. EBL minimal
== END 2023-10-25 17:36 | disposition home or self-care (01) ==
PROVIDERS: PCP Family Medicine; Visit Provider Surgery
PROC: (CPT 49594; principal; 2023-10-25 11:20)
DX: K43.9 Ventral hernia without obstruction or gangrene (principal); K43.0 Incisional hernia with obstruction, without gangrene; K21.00 Gastro-esophageal reflux disease with esophagitis, without bleeding; K59.00 Constipation, unspecified; Z90.49 Acquired absence of other specified parts of digestive tract; I10 Essential (primary) hypertension; D64.9 Anemia, unspecified; J45.909 Unspecified asthma, uncomplicated; E78.00 Pure hypercholesterolemia, unspecified; I48.92 Unspecified atrial flutter; E11.9 Type 2 diabetes mellitus without complications; Z79.82 Long term (current) use of aspirin; Z79.899 Other long term (current) drug therapy
CPT/HCPCS: 49594; 36415; 80048; 85027; 93005; C1781; J0131; J0690; J1100; J2405; J2704; J2795; J3010

== ENCOUNTER → 2023-10-25 09:51 | Outpatient (BNV) | payer MEDICARE, SELFPAY | PROVIDERS: PCP Family Medicine; Visit Provider Surgery | DX: K43.0 Incisional hernia with obstruction, without gangrene (principal) | CPT/HCPCS: 49594 ==

== ENCOUNTER 2023-10-25 22:52 | Emergency (ER) | payer MEDICARE, OTHER, SELFPAY ==
[2023-10-25 23:32] VITALS: BP 135/64; BP 141/83; PULSE 83; PULSE 86; RESP 16; TEMP 36.6; O2SAT 97; O2SAT 98; BMI 29.5
[2023-10-25 23:37] VITALS: BP 128/66; PULSE 74; RESP 14; O2SAT 92
[2023-10-25 23:44] VITALS: TEMP 36.2
--- NOTE | 2023-10-26 00:31 | ED.GENADULT ---
HPI - General Adult General Chief complaint: Abdominal Pain Stated complaint: bleeding from hernia surgery had today Time Seen by Provider: 10/26/23 00:16 Source: patient Mode of arrival: EMS Limitations: no limitations History of Present Illness HPI narrative: Patient comes to the emergency room complaining of postop bleeding. Patient states that earlier this morning, patient had an umbilical hernia surgery done. Patient states that when he got home, he noticed that there was some bleeding soaking of the gauze. Patient got scared and came to the emergency room. Patient denies any significant pain, only localized discomfort Related Data Home Medications Medication Instructions Recorded Confirmed amlodipine 5 mg tablet 5 mg PO DAILY 01/12/21 03/02/23 atorvastatin 40 mg tablet 40 mg PO DAILY 01/12/21 03/02/23 ferrous sulfate 324 mg (65 mg 324 mg PO DAILY 01/12/21 03/02/23 iron) tablet,delayed release furosemide 20 mg tablet 20 mg PO DAILY 01/12/21 03/02/23 aspirin 81 mg tablet,delayed 81 mg PO DAILY 05/13/21 03/02/23 release ketoconazole 2 % shampoo 1 appl topical DAILY 04/18/22 09/05/22 diclofenac sodium 75 mg 75 mg PO BID 07/23/23 tablet,delayed release Previous Rx's Medication Instructions Recorded polyethylene glycol 3350 17 17 g PO DAILY PRN constipation 03/04/23 gram/dose oral powder (Miralax) #510 grams sennosides 8.6 mg-docusate sodium 2 tab PO BID #120 tabs 03/04/23 50 mg tablet (Senna Plus) hydrocodone 5 mg-acetaminophen 325 1 tab PO Q4-6H PRN pain #30 tabs 10/25/23 mg tablet Allergies Allergy/AdvReac Type Severity Reaction Status Date / Time No Known Allergies Allergy Verified 09/11/23 13:34 Review of Systems Review of Systems: Constitutional : No Weight loss, No Fever, No Chills, No Night Sweats, No Fatigue, No Malaise ENT/Mouth : No Hearing loss, No Ear Pain, No Nasal Congestion, No Sinus Pain, No Hoarseness, No sore throat, No Rhinorrhea, No Swallowing Difficulty Eyes: No Eye Pain, No Swelling, No Redness, No Foreign Body, No Discharge, No Vision Changes Cardiovascular : No Chest Pain, No SOB, No Dyspnea on Exertion, No Orthopnea, No Edema, No Palpitations Respiratory : No Cough, No Sputum, No Wheezing, No Smoke Exposure, No Dyspnea Gastrointestinal : No Nausea, No Vomiting, No Diarrhea, No Constipation, No abdominal Pain, No Hematochezia, No Melena Genitourinary : no irregular bleeding, No Dysuria, No Urinary Frequency, No Hematuria, No Urinary Incontinence, No Urgency, No Flank Pain, No Urinary Flow Changes, No Hesitancy Musculoskeletal : No joint pain, No Myalgias, No Joint Swelling Skin : Bleeding from surgical site Neuro : No Weakness, No Numbness, No Paresthesias, No Loss of Consciousness, No Dizziness, No Headache Psych : No Anxiety/Panic, No Depression, No SI/HI/AH/VH, No Social Issues, Heme/Lymph: No Bruising, No Bleeding,No Lymphadenopathy Endocrine : No Polyuria, No Polydipsia, No Temperature Intolerance PMFSH Past Medical History Onset Date is defined in the Problem List Problems that require an onset date and time if occurred within 24 hrs of arrival to the ED Aortic Dissection and Rupture; Neurologic impairment; Cardiopulmonary Arrest; Endotracheal Intubation; Insertion or Replacement of Mechanical Circulatory Assist Device Medical History Bleeding hemorrhoids Low back pain COVID-19 vaccine series completed Tubular adenoma of colon Asthma Diabetes History of cardioversion Hx of atrial flutter Anemia Elevated cholesterol HTN (hypertension) GERD with esophagitis Rectal bleeding Surgical History Hx of eye surgery Hx of resection of small bowel Hx of cardiac catheterization History of esophagogastroduodenoscopy (EGD) H/O colonoscopy Hx of appendectomy Family History Family History Mother Heart attack Cancer Social History Social History Household Members: None Housing: Apartment Are you a primary manager managed care to a significant other at home: No Do you presently have visiting nurse or other home services: No Alcohol intake: never Patient Tobacco Use Status: Never used Tobacco Smoked in Last 30 Days: No Second Hand Smoke Exposure: No Use of substances other than those prescribed or required for medical reasons: No Advance Directives: No Advance Directives Information Provided: No service: No Current occupational status: retired Physical Exam ED Vital Signs: Vital Signs - 24 hr 10/25/23 23:32 10/25/23 23:37 10/25/23 23:44 Temperature 97.9 F 97.1 F Pulse Rate 83 74 Respiratory Rate 16 14 Blood Pressure 141/83 H 128/66 Pulse Oximetry 98 92 Oxygen Delivery Method Room Air Room Air BMI result Body Mass Index 29.5 Const Other: Appearance: Alert. Oriented X3. No acute distress. Eyes: Pupils equal, round and reactive to light. ENT: Pharynx normal. Neck: Normal inspection. Neck supple. No lymph nodes noted. No crepitus CVS: Normal heart rate and rhythm. Pulses normal. Normal S1 and S2 Respiratory: No respiratory distress. Breath sounds normal. No Wheezing. No rales Abdomen: Soft and nontender. No rigidity. No distention. Skin: Patient's incision looks clean, there is small amount of active bleeding from the top of the incision above the umbilicus, incision looks clean Extremities: No lower extremity edema. No Lacerations. No Rash Neuro: Oriented X 3. No motor deficit. No sensory deficit. Moving all extremities. No slurred speech. CN 2 through 12 grossly intact Psych: calm, cooperative, normal affect Course Course Course Narrative: -two figure-eight stitch were applied to the top of the incision, bleeding stopped Medications Administered Discontinued Medications Generic Name Dose Route Start Last Admin Trade Name Donavanq PRN Reason Stop Dose Admin Lidocaine HCl 2 ml 10/26/23 00:29 10/26/23 00:38 Lidocaine Hcl 2% 2 Ml Vial INFILTRATI 10/26/23 00:30 2 ml ONCE ONE Administration Procedures Laceration Laceration 1: Site: other (Supraumbilical surgical incision) Size (cm): 1 Description: linear Depth: simple, single layer Local Anesthetic: lidocaine 2% Amount of anesthesia used (mL): 1 Skin layer closed with: nylon Size (cm): 5-0 Number of sutures: 2 Technique: other (Figure 8) Discharge Plan Discharge Clinical Impression: Bleeding Patient Disposition: Home, Self-Care Instructions: Care For Your Stitches (ED) Additional Instructions: Your 2 stitches need to be removed in 7-10 days. Please follow-up with Dr. Dee. Please follow-up with your primary care physician tomorrow. If you have any worsening or new symptoms, please return to the emergency room or call 911 Prescriptions: No Action aspirin 81 mg Tablet,Delayed Release (Dr/Ec) 81 mg PO DAILY sennosides-docusate sodium [Senna Plus] 8.6-50 mg Tablet 2 tab PO BID Qty: 120 0RF polyethylene glycol 3350 [Miralax] 17 gram/dose powder 17 g PO DAILY PRN (Reason: constipation) Qty: 510 0RF hydrocodone-acetaminophen 5-325 mg tablet 1 tab PO Q4-6H PRN (Reason: pain) Qty: 30 0RF Rx Instructions: Partial Fill upon patient request. amlodipine 5 mg tablet 5 mg PO DAILY ferrous sulfate 324 mg (65 mg iron) tablet,delayed release (DR/EC) 324 mg PO DAILY furosemide 20 mg tablet 20 mg PO DAILY atorvastatin 40 mg tablet 40 mg PO DAILY ketoconazole 2 % shampoo 1 appl topical DAILY diclofenac sodium 75 mg tablet,delayed release (DR/EC) 75 mg PO BID
[2023-10-26 01:52] VITALS: BP 118/69; PULSE 81; RESP 16; TEMP 36.6; O2SAT 93
== END 2023-10-26 01:54 | disposition home or self-care (01) ==
PROVIDERS: Emergency Provider Emergency Medicine; PCP Family Medicine
DX: L76.22 Postprocedural hemorrhage of skin and subcutaneous tissue following other procedure (principal); Z79.899 Other long term (current) drug therapy
CPT/HCPCS: 12001; 99284

== ENCOUNTER 2023-11-06 10:02 | Outpatient (AMB) | payer MEDICARE, SELFPAY ==
[2023-11-06 10:23] VITALS: BP 166/72; PULSE 72; BMI 28.9
--- NOTE | 2023-11-06 10:23 | A.OFFVIS_ITS ---
Intake Vital Signs 11/06/23 10:23 Height 5 ft 1 in Weight 153 lb BMI 28.9 BP 166/72 H Blood Pressure Location Rt brachial Position Sitting Pulse 72 Intake Visit Reasons: S/P ventral hernia Intake Note: Patient here s/p ventral hernia repair. Reports incision healing well. Patient c/o: tenderness. Patient r Allergies No Known Allergies Allergy (Verified 09/11/23 13:34) HPI HPI Comments History of Present Illness Details Patient presents for follow-up. He apparently had this skin bleeder which was addressed to the emergency room. In the meantime, he is tolerating his diet. He is having regular bowel habits. He has not sleeping on his stomach because of incisional discomfort but otherwise doing well. [facility] Medical History (Updated 10/27/23 @ 00:02 by Warren Lino) Bleeding hemorrhoids Low back pain COVID-19 vaccine series completed Tubular adenoma of colon Asthma Diabetes History of cardioversion Hx of atrial flutter Anemia Elevated cholesterol HTN (hypertension) GERD with esophagitis Rectal bleeding Surgical History (Updated 11/02/23 @ 16:02 by MIKAEL Weber) Ventral hernia (10/25/23) Hx of eye surgery Hx of resection of small bowel Hx of cardiac catheterization History of esophagogastroduodenoscopy (EGD) H/O colonoscopy Hx of appendectomy Family History Mother Heart attack Cancer Social History Household Members: None Housing: Apartment Are you a primary assistant child care teacher to a significant other at home: No Do you presently have visiting nurse or other home services: No Alcohol intake: never Patient Tobacco Use Status: Never used Tobacco Second Hand Smoke Exposure: No service: No Current occupational status: retired Physical Exam GI Other: Abdomen soft. Wound clean dry and intact. Some resolving ecchymosis. Patient has 2 sutures at the superior aspect of his incision which were removed without incident. Remaining Steri-Strips removed and incision is clean dry and intact. Assessment & Plan Assessment & Plan (1) Ventral hernia: Onset Date: 10/25/23 Comment: Periumbilical ventral hernia Dr. Leonel Dee Code(s): K43.9 - Ventral hernia without obstruction or gangrene Plan Patient has been given local instructions and will follow-up p.r.n.. All questions answered. Coding Level of Care Code Global (15452) Diagnoses Ventral hernia K43.9
== END 2023-11-06 10:28 | disposition home or self-care (01) ==
PROVIDERS: PCP Family Medicine; Visit Provider Surgery
DX: K43.9 Ventral hernia without obstruction or gangrene (principal)
CPT/HCPCS: 99212

== ENCOUNTER → 2023-11-06 10:02 | Outpatient (BNVA) | payer MEDICARE, SELFPAY | PROVIDERS: PCP Family Medicine; Visit Provider Surgery | DX: Z09 Encounter for follow-up examination after completed treatment for conditions other than malignant neoplasm (principal); Z87.19 Personal history of other diseases of the digestive system | CPT/HCPCS: 99212 ==

== ENCOUNTER 2023-12-06 10:47 | Emergency (ER) | payer MEDICARE, OTHER, SELFPAY ==
--- NOTE | ~2023-12-06 | XR_ITS ---
EXAMINATION: XR CHEST CLINICAL INFORMATION: Shortness of breath. COMPARISON: Chest CT 05/16/2022 TECHNIQUE: 2 views of the chest were obtained. FINDINGS: The lungs are well expanded. No focal consolidation. No pleural effusion. Cardiac silhouette is within normal limits. XR/XR chest 2V IMPRESSION: No acute abnormality.
[2023-12-06 10:50] VITALS: BP 141/66; PULSE 73; RESP 19; TEMP 36.6; O2SAT 97; BMI 28.9
--- NOTE | 2023-12-06 10:55 | ECG_ITS ---
Test Reason : sob Blood Pressure : / mmHG Vent. Rate : 093 BPM Atrial Rate : 093 BPM P-R Int : 170 ms QRS Dur : 102 ms QT Int : 366 ms P-R-T Axes : 083 -59 043 degrees QTc Int : 455 ms Normal sinus rhythm with sinus arrhythmia Left axis deviation Pulmonary disease pattern Abnormal ECG When compared with ECG of 25-OCT-2023 10:18, No significant change was found Referred By: Generic ED Physician Electronically Signed By:Edouard Wheeler
--- NOTE | 2023-12-06 10:59 | ED_ITS ---
HPI - General Adult General Chief complaint: Upper Respiratory Symptoms Stated complaint: Cough 10 days Time Seen by Provider: 12/06/23 18:54 Source: patient Mode of arrival: ambulatory Limitations: no limitations History of Present Illness HPI narrative: Patient with history of asthma been coughing for last 9days no fever no chills no chest pain no leg edema Related Data Home Medications Medication Instructions Recorded Confirmed amlodipine 5 mg tablet 5 mg PO DAILY 01/12/21 11/06/23 atorvastatin 40 mg tablet 40 mg PO DAILY 01/12/21 11/06/23 ferrous sulfate 324 mg (65 mg 324 mg PO DAILY 01/12/21 11/06/23 iron) tablet,delayed release furosemide 20 mg tablet 20 mg PO DAILY 01/12/21 11/06/23 aspirin 81 mg tablet,delayed 81 mg PO DAILY 05/13/21 11/06/23 release ketoconazole 2 % shampoo 1 appl topical DAILY 04/18/22 11/06/23 diclofenac sodium 75 mg 75 mg PO BID 07/23/23 11/06/23 tablet,delayed release Previous Rx's Medication Instructions Recorded polyethylene glycol 3350 17 17 g PO DAILY PRN constipation 03/04/23 gram/dose oral powder (Miralax) #510 grams sennosides 8.6 mg-docusate sodium 2 tab PO BID #120 tabs 03/04/23 50 mg tablet (Senna Plus) hydrocodone 5 mg-acetaminophen 325 1 tab PO Q4-6H PRN pain #30 tabs 10/25/23 mg tablet albuterol sulfate 90 mcg/actuation 2 puff inhalation Q4-6H PRN 12/06/23 aerosol inhaler (ProAir HFA) shortness of breath or wheezing #8.5 grams benzonatate 200 mg capsule 200 mg PO TID PRN cough #30 caps 12/06/23 cefuroxime axetil 500 mg tablet 500 mg PO BID 7 days #14 tabs 12/06/23 Allergies Allergy/AdvReac Type Severity Reaction Status Date / Time No Known Allergies Allergy Verified 12/06/23 10:50 Review of Systems 2 Review of Systems: Yes all other systems are reviewed and are negative PMFSH Past Medical History Medical History Bleeding hemorrhoids Low back pain COVID-19 vaccine series completed Tubular adenoma of colon Asthma Diabetes History of cardioversion Hx of atrial flutter Anemia Elevated cholesterol HTN (hypertension) GERD with esophagitis Rectal bleeding Surgical History Ventral hernia (10/25/23) Hx of eye surgery Hx of resection of small bowel Hx of cardiac catheterization History of esophagogastroduodenoscopy (EGD) H/O colonoscopy Hx of appendectomy Family History Family History Mother Heart attack Cancer Social History Social History Household Members: None Housing: Apartment Are you a primary senior care specialist to a significant other at home: No Do you presently have visiting nurse or other home services: No Alcohol intake: never Patient Tobacco Use Status: Never used Tobacco Second Hand Smoke Exposure: No Advance Directives: No Advance Directives Information Provided: No service: No Current occupational status: retired Physical Exam ED Vital Signs: Vital Signs - 24 hr 12/06/23 17:36 12/06/23 17:36 12/06/23 18:44 Temperature 98 F Pulse Rate 70 65 Respiratory Rate 18 18 Blood Pressure 154/75 H 130/68 Pulse Oximetry 98 98 97 Oxygen Delivery Method Room Air Room Air Room Air 12/06/23 19:18 Temperature 98.1 F Pulse Rate 73 Respiratory Rate 17 Blood Pressure 145/51 H Pulse Oximetry 97 Oxygen Delivery Method Room Air BMI result Body Mass Index 28.9 Appearance: Alert. Oriented X3. No acute distress. ENT: Pharynx normal. Oral Mucosa moist Neck: Normal inspection. Neck supple. CVS: Normal heart rate and rhythm. Pulses normal. Respiratory: No respiratory distress. Equal air entry bilateral, bilateral prolonged expiration Abdomen: Soft and nontender. Bowel sounds are present, Skin: Skin warm and dry. Normal skin color. Normal skin turgor. Extremities: No lower extremity edema. No calf tenderness Neuro: Oriented X 3 Course Course Course Narrative: This is a rapid medical exam: Additional HPI, ROS, PE not included below will be deferred to primary provider. Patient is an 83-year-old male presenting to the ED with complaint of increasing shortness of breath and cough. History of CHF, reports baseline lower extremity edema, denies recent worsening. Plan: EKG, labs, viral swabs, CXR Medications Administered Discontinued Medications Generic Name Dose Route Start Last Admin Trade Name Geraldine PRN Reason Stop Dose Admin Albuterol Sulfate 2 puff 12/06/23 19:27 12/06/23 20:06 Albuterol Sulfate 90 Mcg 8 Gm Inhaler INHALE 12/06/23 19:28 2 puff ONCE ONE Administration Benzonatate 200 mg 12/06/23 19:27 12/06/23 19:32 Benzonatate 100 Mg Capsule PO 12/06/23 19:28 200 mg ONCE ONE Administration Cefuroxime Axetil 500 mg 12/06/23 19:27 12/06/23 19:32 Cefuroxime Axetil 500 Mg Tablet PO 12/06/23 19:28 500 mg ONCE ONE Administration Medical Decision Making Differential Diagnosis Differential Diagnoses: The differential diagnosis associated with the presentation includes Acute bronchitis/pneumonia Lab Data MDM Lab Attestation statement: I reviewed the patient's lab results. 12/06/23 11:09 12/06/23 11:09 Labs: Lab Results 12/06/23 Range/Units 11:09 WBC 11.2 H (4.8-10.8) X10*3/uL RBC 4.34 L (4.60-5.80) X10*6/uL Hgb 12.5 L (14.0-18.0) g/dl Hct 39.0 L (42.0-52.0) % MCV 89.9 (80.0-98.0) fL MCH 28.8 (27.0-33.0) pg MCHC 32.1 (31.0-36.0) g/dl RDW 13.4 (11.0-16.0) % Plt Count 201 (160-400) X10*3/uL MPV 10.5 (9.4-12.4) fL Immature Gran % (Auto) 0.4 (0.0-0.4) % Neut % (Auto) 77.9 H (45-73) % Lymph % (Auto) 10.9 L (20-40) % Toombs % (Auto) 8.6 (2-11) % Eos % (Auto) 1.8 (0-4) % Baso % (Auto) 0.4 (0-2) % Lymph # (Auto) 1.2 (1.2-4.9) X10*3/uL [place]ombs # (Auto) 1.0 (0.1-1.2) X10*3/uL Eos # (Auto) 0.2 (0.0-0.4) X10*3/uL Baso # (Auto) 0.0 (0.0-0.2) X10*3/uL Abs Immat Gran (auto) 0.04 H (0.00-0.03) X10*3/uL Absolute Neuts (auto) 8.7 H (2.0-8.3) x10*3/uL Absolute Nucleated RBC 0.000 (0.0-0.012) X10*3/uL Nucleated RBC % (auto) 0.0 (0.0-0.2) /100WBC Sodium 140 (135-145) mmol/L Potassium 3.7 (3.3-5.1) mmol/L Chloride 105 (96-108) mmol/L Carbon Dioxide 26 (22-29) mmol/L Anion Gap 13 (12-20) BUN 11 (9-16) mg/dL Creatinine 0.74 (0.5-1.4) mg/dL Estim Creat Clear Calc 64.3 Estimated GFR > 60 Random Glucose 119 H (60-115) mg/dL Calcium 9.1 (8.4-10.2) mg/dL Troponin I High Sens < 2.7 (<3.5-35.0) ng/L B-Natriuretic Peptide 138 H (<100) pg/mL COVID-19 (AUREA) Negative (Negative) COVID-19 Clin Com See Note Influenza Type A (JOSE) Negative (Negative) Influenza Type B (JOSE) Negative (Negative) Influenza A & B Note See Note Independent Interpretation I performed an independent interpretation of an: Plain X-Ray Radiology Impression Discussion of test interpretation with radiology: I have reviewed the radiologist's reading. Discharge Plan Discharge Clinical Impression: Acute bronchitis Patient Disposition: Home, Self-Care Instructions: Acute Bronchitis (ED) Additional Instructions: Take antibiotic , cough drops, inhaler as prescribed Prescriptions: New benzonatate 200 mg capsule 200 mg PO TID PRN (Reason: cough) Qty: 30 0RF cefuroxime axetil 500 mg tablet 500 mg PO BID 7 Days Qty: 14 0RF albuterol sulfate [ProAir HFA] 90 mcg/actuation HFA aerosol inhaler 2 puff inhalation Q4-6H PRN (Reason: shortness of breath or wheezing) Qty: 8.5 0RF No Action aspirin 81 mg Tablet,Delayed Release (Dr/Ec) 81 mg PO DAILY sennosides-docusate sodium [Senna Plus] 8.6-50 mg Tablet 2 tab PO BID Qty: 120 0RF polyethylene glycol 3350 [Miralax] 17 gram/dose powder 17 g PO DAILY PRN (Reason: constipation) Qty: 510 0RF hydrocodone-acetaminophen 5-325 mg tablet 1 tab PO Q4-6H PRN (Reason: pain) Qty: 30 0RF Rx Instructions: Partial Fill upon patient request. amlodipine 5 mg tablet 5 mg PO DAILY ferrous sulfate 324 mg (65 mg iron) tablet,delayed release (DR/EC) 324 mg PO DAILY furosemide 20 mg tablet 20 mg PO DAILY atorvastatin 40 mg tablet 40 mg PO DAILY ketoconazole 2 % shampoo 1 appl topical DAILY diclofenac sodium 75 mg tablet,delayed release (DR/EC) 75 mg PO BID Interventions: ED Discharge Assessment Last Done: 12/06/23 20:12 Discharge Date/Time: 12/06/23 20:25
[2023-12-06 11:12] LABS: MANUAL DIFF FLAG NO
[2023-12-06 11:14] LABS: Basophils Percent Auto 0.4 % (0-2); Eosinophils Absolute Auto 0.2 X10*3/uL (0.0-0.4); Eosinophils Percent Auto 1.8 % (0-4); Hemoglobin 12.5 g/dl (14.0-18.0); Imm Gran Abs Auto 0.04 X10*3/uL (0.00-0.03); Imm Gran Pct Auto 0.4 % (0.0-0.4); Lymphocytes Absolute Auto 1.2 X10*3/uL (1.2-4.9); Lymphocytes Percent Auto 10.9 % (20-40); Mean Corpuscular HGB Conc 32.1 g/dl (31.0-36.0); Mean Corpuscular Hemoglobin 28.8 pg (27.0-33.0); Mean Corpuscular Volume 89.9 fL (80.0-98.0); Mean Platelet Volume 10.5 fL (9.4-12.4); Monocytes Percent Auto 8.6 % (2-11); Neutrophils Absolute Auto 8.7 x10*3/uL (2.0-8.3); Neutrophils Percent Auto 77.9 % (45-73); Platelet Count 201 X10*3/uL (160-400); Red Blood Count 4.34 X10*6/uL (4.60-5.80); Red Cell Distribution Width 13.4 % (11.0-16.0); White Blood Count 11.2 X10*3/uL (4.8-10.8)
[2023-12-06 11:28] LABS: Anion Gap 13 (12-20); Blood Urea Nitrogen 11 mg/dL (9-16); Calcium 9.1 mg/dL (8.4-10.2); Carbon Dioxide 26 mmol/L (22-29); Chloride 105 mmol/L (96-108); Creatinine Clr Calc Pharmacy 64.3; Estimated Glomerular Filt Rate > 60; Glucose Random 119 mg/dL (60-115); Potassium 3.7 mmol/L (3.3-5.1); Sodium 140 mmol/L (135-145)
[2023-12-06 11:35] LABS: COVID-19 Test Negative (Negative); IDNOW Serial# 08D9AD1C; IDNOW Serial# 152EDE1D; Influenza A Negative (Negative); Influenza B2 Negative (Negative)
[2023-12-06 11:36] LABS: B Type Natriuretic Peptide 138 pg/mL (<100)
[2023-12-06 11:37] LABS: Troponin-I High Sensitivity < 2.7 ng/L (<3.5-35.0)
[2023-12-06 17:36] VITALS: BP 154/75; PULSE 70; RESP 18; TEMP 36.6; O2SAT 98
[2023-12-06 18:44] VITALS: BP 130/68; PULSE 65; RESP 18; O2SAT 97
[2023-12-06 19:18] VITALS: BP 145/51; PULSE 73; RESP 17; TEMP 36.7; O2SAT 97
[2023-12-06] MEDS: cefuroxime axetiL 500 MG TABLET PO (19:32)
[2023-12-06] MEDS: Benzonatate 100 MG CAPSULE 200 MG PO (19:32)
[2023-12-06] MEDS: Albuterol Sulfate 90 MCG 8 GM INHALER 2 PUFF INHALE (20:06)
== END 2023-12-06 20:25 | disposition home or self-care (01) ==
PROVIDERS: Emergency Provider Internal Medicine
DX: J20.9 Acute bronchitis, unspecified (principal); R06.02 Shortness of breath; E11.9 Type 2 diabetes mellitus without complications; I10 Essential (primary) hypertension; E78.00 Pure hypercholesterolemia, unspecified; Z79.02 Long term (current) use of antithrombotics/antiplatelets; Z79.82 Long term (current) use of aspirin; Z79.899 Other long term (current) drug therapy; Z11.52 Encounter for screening for COVID-19
CPT/HCPCS: 71046; 80048; 83880; 84484; 85025; 87502; 87635; 93005; 99284; 99285

== ENCOUNTER → 2023-12-06 10:55 | Outpatient (BNV) | payer MEDICARE, SELFPAY | PROVIDERS: Visit Provider Internal Medicine Cardiovascular Disease | DX: R06.02 Shortness of breath (principal) | CPT/HCPCS: 93010 ==

== ENCOUNTER 2024-01-18 11:40 | Outpatient (AMB) | payer MEDICARE, SELFPAY ==
--- NOTE | 2024-01-18 11:42 | MHC.OFFVIS ---
Intake Vital Signs 01/18/24 11:50 Height 5 ft 1 in Weight 153 lb BMI 28.9 BP 119/64 Blood Pressure Location Lt brachial Position Sitting Pulse 77 Intake Visit Reasons: pt req appointment Intake Note: Tom presents in the office as a follow up. CC: He states that he has not been doing good. States that he has pains in his lower back - he has troubles with his stomach but no pains. He had constipation a couple days ago. Milk of Mag seemed to help with a BM. He states he is sleepy - he woke up early and he felt like he had a fever but he feels okay. Mail Handlers Supervisor Required: No Allergies No Known Allergies Allergy (Verified 01/18/24 11:47) HPI pt req appointment HPI Details 83 yr old m a-flutter, HTN, HLP, asthma, jejunal ca s/p chemo and being seen for f/u RECAP: He had seen DR Barcenas earlier this year and plan was for EGD for barretts and colonoscopy due to rectal bleeding He had EGD/colonoscopy and capsule endo 2019 due to bleeding and anemia ?barretts, also may have had jejunal resection due to neoplasia He does have tenesmus, feels likes he has to go and nothing happens he sees blood few times/month in stool, on wiping and in the water he has constipation, can take 2-3 d to pass stools which is new he has been taking miralax bid which has helped a lot he is v anxious to have EGD as he has a feeling of something is his chest, like stuck been going on for 1 year or more he has no problems swallowing liquid but he feels the liquids going down he has trouble swallowing pills sometimes, has to take multiple sips to get it down he has no problem with food as long as he chews thoroughly EGD/colonoscopy: 08/2021: dilation done, with balloon, no tear noted, hiatal hernia Endoscopy Findings: hiatal hernia barretts esophagus gastritis/gastropathy Colonoscopy Findings: polyps internal hemorrhoids diverticular disease Path: focal gastritis He had diarrhea and went to ED with imaging revealing several abnormalities with indeterminate liver lesion, thickening of rectosigmoid area, pulm nodules Stool tests were negative havign blood in stool having tenesmus sigmoidoscopy was done and revealed diverticulosis with small hemorrhoid, no masses or lesions seen HE was admitted 02/2023 with constipation and stercoral colitis, treated with laxatives mineral oil enemas, GoLytely, bisacodyl, and senna/docusate with good effect HE had periumbilical ventral hernia repair with Dr Dee 10/25/23 INTERIM: needs [employer] disability placard filled out so did that also had qn about his ventral hernia repair about what happened, so reviewed has his ba swallow coming up, has usual body and joint pains due to OA EXAM: GENERAL: The patient is relaxed, frail VITAL SIGNS:see workflow HEENT: Nonicteric sclerae, PERRLA, EOMI. Oropharynx clear. Moist mucous membranes. Conjunctivae appear well perfused. No thyroid mass. CHEST: Chest wall is nontender. HEART: Regular rate and rhythm without murmurs. LUNGS: Clear to auscultation bilaterally. ABDOMEN: Soft, positive bowel sounds,non tender, no organomegaly.no flank tenderness SKIN: No rash, no excessive bruising, petechiae, or purpura. NEUROLOGIC: Cranial nerves II-XII intact without motor/sensory deficit. MS: walking with cane, A/P; 1/ ventral hernia s/p repair 2/ dysphagia -prior dilation which he feels helped --ordered ba swallow--pending PLAN: 1/await ba swallow, might need rept EGD with dilation 2/ filled out [facility] Medical History Bleeding hemorrhoids Low back pain COVID-19 vaccine series completed Tubular adenoma of colon Asthma Diabetes History of cardioversion Hx of atrial flutter Anemia Elevated cholesterol HTN (hypertension) GERD with esophagitis Rectal bleeding Surgical History Ventral hernia (10/25/23) Hx of eye surgery Hx of resection of small bowel Hx of cardiac catheterization History of esophagogastroduodenoscopy (EGD) H/O colonoscopy Hx of appendectomy Family History Mother Heart attack Cancer Social History Household Members: None Housing: Apartment Are you a primary manager urgent care to a significant other at home: No Do you presently have visiting nurse or other home services: No Alcohol intake: never Patient Tobacco Use Status: Never used Tobacco Second Hand Smoke Exposure: No service: No Current occupational status: retired Physical Exam Vital Signs: Last Vital Signs Pulse 77 01/18/24 11:50 BP 119/64 01/18/24 11:50 BMI result Body Mass Index 28.9 Assessment & Plan Assessment & Plan (1) Dysphagia: Code(s): R13.10 - Dysphagia, unspecified Plan: see above Medications: Discontinued sennosides-docusate sodium 8.6-50 mg (Senna Plus) Discontinued Reason: Patient Completed Course 2 tabs PO BID 120 tabs 0RF Coding Level of Care Code Est Pt Level 3 (51484) Diagnoses Dysphagia R13.10
[2024-01-18 11:50] VITALS: BP 119/64; PULSE 77; BMI 28.9
== END 2024-01-18 12:48 | disposition home or self-care (01) ==
PROVIDERS: Referring Provider Family Medicine; Visit Provider Internal Medicine Gastroenterology
DX: R13.10 Dysphagia, unspecified (principal)
CPT/HCPCS: 99213

== ENCOUNTER → 2024-01-18 11:40 | Outpatient (BNVA) | payer MEDICARE, SELFPAY | PROVIDERS: Visit Provider Internal Medicine Gastroenterology | DX: R13.10 Dysphagia, unspecified (principal); K59.00 Constipation, unspecified; M54.50 Low back pain, unspecified | CPT/HCPCS: 99212 ==

== ENCOUNTER 2024-01-21 08:27 | Outpatient (REF) | payer MEDICARE, SELFPAY ==
--- NOTE | ~2024-01-21 | FL_ITS ---
EXAMINATION: XR FLUOROSCOPY UPPER GI WITH AIR CLINICAL INFORMATION: Dysphagia COMPARISON: None TECHNIQUE: Fluoroscopic air contrast upper GI examination was performed utilizing standard techniques with thin and thick barium and effervescent granules. Numerous spot images were obtained. FINDINGS: Lateral cine images of the oropharynx and hypopharynx demonstrate normal swallow mechanism with normal epiglottic inversion and soft palate elevation. No tracheal penetration, glottic or subglottic aspiration identified. Mild nasopharyngeal reflux present. Hypopharyngeal structures appear normal without evidence of mass or diverticulum. There is mild cricopharyngeal achalasia present. There are anterior bridging osteophytes of C4-6 that do not appear to be causing any posterior compression of the esophagus. Dual and single contrast images of the esophagus demonstrate normal caliber, contour, and mucosal pattern. No masses or ulcerations are present. A barium tablet passes into the stomach without any difficulty. There is to and fro motion of the barium column with nonpropulsive tertiary contractions noted throughout the esophagus. A small type I hiatal hernia is present (RF 1-12 53/157). There is a short segment of mild narrowing below the hiatal hernia that may represent a benign stricture, or more likely a completely open Schatzki's ring. No significant gastroesophageal reflux was seen during the course of the examination and on reflux views. Dual contrast and single contrast images of the stomach demonstrated normal contour. There are several areas of contrast pooling in the gastric body that may represent small superficial aphthous ulcers. No masses are seen.. Contrast freely passed into the gastric antrum and duodenal bulb without delay. Single and air-contrast images of the duodenal bulb demonstrate no abnormality. The duodenal sweep has a normal appearance, course, and mucosal fold appearance. No malrotation. The imaged proximal jejunum has a normal fold pattern and caliber. Surgical clips are present in the right upper abdomen, consistent with prior history of cholecystectomy. FLUOROSCOPY TIME: 6 minutes 43 seconds Number of Spot Images: 9 Number of Cine: 15 DOSE AREA PRODUCT: 4471 uGy-m2 (microgray-meter squared) FL/FL barium swallow with air IMPRESSION: 1. Mild cricopharyngeal achalasia. 2. Anterior bridging osteophytes of C4-C6 that do not appear to be causing any posterior compression of the upper esophagus. 3. Esophageal dysmotility. 4. Small type I hiatal hernia. Probable wide open Schatzki's ring. 5. Several areas of contrast pooling in the gastric body that may represent small superficial aphthous ulcers. This may indicate erosive gastritis. Recommend correlation with EGD. This procedure was performed by Delroy Toledo PA-C, and supervised by Dr. Kay
== END 2024-01-21 08:28 | disposition home or self-care (01) ==
LOC: HO.XRAY 08:27
PROVIDERS: PCP Family Medicine; Visit Provider Internal Medicine Gastroenterology
DX: R13.10 Dysphagia, unspecified (principal)
CPT/HCPCS: 74221

== ENCOUNTER → 2024-01-21 09:36 | Outpatient (BNV) | payer MEDICARE, SELFPAY | PROVIDERS: PCP Family Medicine; Visit Provider Physician Assistant Surgical | DX: R13.10 Dysphagia, unspecified (principal) | CPT/HCPCS: 74246 ==

== ENCOUNTER 2024-02-15 11:51 | Outpatient (AMB) | payer MEDICARE, SELFPAY ==
--- NOTE | 2024-02-15 11:52 | MHC.OFFVIS ---
Vital Signs 02/15/24 11:53 Height 5 ft 1 in Weight 153 lb BMI 28.9 BP 138/62 Blood Pressure Location Lt brachial Position Sitting Pulse 82 Intake Visit Reasons: follow up Intake Note: Tom presents in the office as a follow up. CC: He states he is not feeling good and has pains all over. 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 RECAP: He had seen DR Barcenas earlier this year and plan was for EGD for barretts and colonoscopy due to rectal bleeding He had EGD/colonoscopy and capsule endo 2019 due to bleeding and anemia ?barretts, also may have had jejunal resection due to neoplasia He does have tenesmus, feels likes he has to go and nothing happens he sees blood few times/month in stool, on wiping and in the water he has constipation, can take 2-3 d to pass stools which is new he has been taking miralax bid which has helped a lot he is v anxious to have EGD as he has a feeling of something is his chest, like stuck been going on for 1 year or more he has no problems swallowing liquid but he feels the liquids going down he has trouble swallowing pills sometimes, has to take multiple sips to get it down he has no problem with food as long as he chews thoroughly EGD/colonoscopy: 08/2021: dilation done, with balloon, no tear noted, hiatal hernia Endoscopy Findings: hiatal hernia barretts esophagus gastritis/gastropathy Colonoscopy Findings: polyps internal hemorrhoids diverticular disease Path: focal gastritis He had diarrhea and went to ED with imaging revealing several abnormalities with indeterminate liver lesion, thickening of rectosigmoid area, pulm nodules Stool tests were negative havign blood in stool having tenesmus sigmoidoscopy was done and revealed diverticulosis with small hemorrhoid, no masses or lesions seen HE was admitted 02/2023 with constipation and stercoral colitis, treated with laxatives mineral oil enemas, GoLytely, bisacodyl, and senna/docusate with good effect HE had periumbilical ventral hernia repair with Dr Dee 10/25/23 INTERIM: He has full body pain, and discomfort he feels his breathing is more strenous sx started few days ago unsure if started due to maintainence work 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 Oropharynx clear. Moist mucous membranes. Conjunctivae appear well perfused. No thyroid mass. CHEST: Chest wall is nontender. HEART: Regular rate and rhythm without murmurs. LUNGS: Clear to auscultation bilaterally. ABDOMEN: Soft, positive bowel sounds,non tender, no organomegaly.no flank tenderness no inguinal hernia, no redness but testicle is tender SKIN: No rash, no excessive bruising, petechiae, or purpura. NEUROLOGIC: Cranial nerves II-XII intact without motor/sensory deficit. MS: walking with cane, A/P; 1/ ventral hernia s/p repair 2/ dysphagia -prior dilation which he feels helped -now possible ulcers on ba swallow, dysmotility, 3/ generalized malaise tender testicle ?orchitis, epidiymitis PLAN: 1/EGD 2/ add carafate 3/ levoflox for 10 d 4/ advised if any worse sx come to ED [facility] Medical History Bleeding hemorrhoids Low back pain COVID-19 vaccine series completed Tubular adenoma of colon Asthma Diabetes History of cardioversion Hx of atrial flutter Anemia Elevated cholesterol HTN (hypertension) GERD with esophagitis Rectal bleeding Surgical History Ventral hernia (10/25/23) Hx of eye surgery Hx of resection of small bowel Hx of cardiac catheterization History of esophagogastroduodenoscopy (EGD) H/O colonoscopy Hx of appendectomy Family History Mother Heart attack Cancer Social History Household Members: None Housing: Apartment Are you a primary healthcare network pricing consultant to a significant other at home: No Do you presently have visiting nurse or other home services: No Alcohol intake: never Patient Tobacco Use Status: Never used Tobacco Second Hand Smoke Exposure: No service: No Current occupational status: retired Physical Exam Vital Signs: Last Vital Signs Pulse 82 02/15/24 11:53 BP 138/62 02/15/24 11:53 BMI result Body Mass Index 28.9 Assessment & Plan Assessment & Plan (1) Dysphagia: Code(s): R13.10 - Dysphagia, unspecified Category: Medical Plan: see above (2) Orchitis: Code(s): N45.2 - Orchitis Category: Medical Plan: see above Medications: New levofloxacin 500 mg PO DAILY 10 tabs 0RF sucralfate (Carafate) 10 mL PO BID 1,000 mL 0RF Coding Level of Care Code Est Pt Level 4 (56325) Diagnoses Dysphagia R13.10 Orchitis N45.2
[2024-02-15 11:53] VITALS: BP 138/62; PULSE 82; BMI 28.9
== END 2024-02-15 12:37 | disposition home or self-care (01) ==
PROVIDERS: Visit Provider Internal Medicine Gastroenterology
DX: R13.10 Dysphagia, unspecified (principal); N45.2 Orchitis
CPT/HCPCS: 99214

== ENCOUNTER → 2024-02-15 11:51 | Outpatient (BNVA) | payer MEDICARE, SELFPAY | PROVIDERS: Visit Provider Internal Medicine Gastroenterology | DX: R13.10 Dysphagia, unspecified (principal); N45.2 Orchitis | CPT/HCPCS: 99212 ==